=== PATIENT | male | born 1980 | race African-American/Black ===

== ENCOUNTER 2021-06-17 08:02 | Emergency (ER) | payer MEDICARE, SELFPAY ==
--- NOTE | ~2021-06-17 | CT_ITS ---
EXAMINATION: CT abdomen pelvis wo con DATE: 06/17/2021 08:32 INDICATION: Generalized abdominal pain, patient on dialysis TECHNIQUE: Computed tomography (CT) of the abdomen and pelvis was performed without intravenous contr ast. The dose-length product (DLP) was 422.35 mGy-cm. Automated exposure control and iterative recons truction technique were employed. COMPARISON: None FINDINGS: Minimal dependent atelectasis is present in the lung bases. The heart size is normal. Withi n the limitations of noncontrast examination, the liver, spleen, pancreas, gallbladder, and adrenal g lands are normal. There is mild left hydronephrosis of unclear significance. The right kidney is unre markable. There are phleboliths of the pelvis. There is a moderate amount of free intraperitoneal gas in the upper abdomen and a small volume of abdominal and pelvic ascites. A peritoneal dialysis parrish ter coils in the pelvis. No pathologically enlarged abdominal or pelvic lymph nodes are identified. T here are no dilated loops of bowel. A 3 cm fluid attenuation lesion in the subcutaneous tissues of th e left lower back has the appearance of a sebaceous cyst. IMPRESSION: 1. Small volume of ascites with free intraperitoneal gas in the upper abdomen. Findings could be rela reggie to peritoneal dialysis as no definite source of free air is identified. 2. Mild left hydronephrosis of unclear etiology. Reviewed, dictated and finalized at location B. IMPRESSION: 1. Small volume of ascites with free intraperitoneal gas in the upper abdomen. Findings could be related to peritoneal dialysis as no definite source of free air is identified. 2. Mild left hydronephrosis of unclear etiology.
[2021-06-17 08:07] VITALS: BP 246/146; PULSE 64; RESP 18; TEMP 36.4; O2SAT 100
--- NOTE | 2021-06-17 08:08 | ED.ABDPAIN ---
HPI - Abdominal Pain General Chief Complaint: Abdominal Pain Stated Complaint: ABD Pain Time Seen by Provider: 06/17/21 08:05 History of Present Illness HPI narrative: 40 yo male w/ h/o ESRD on peritoneal dialysis presents to the ED for nausea, vomiting, diarrhea, and abdominal pain. He reports that his symptoms started suddenly last night during his dialysis treatemnt. The pain is diffuse and cramp like. He has had multiple episodes of vomiting and diarrhea. N fever. No sick contacts. Related Data Home Medications Medication Instructions Recorded Confirmed amlodipine 06/17/21 carvedilol 06/17/21 clonidine 06/17/21 famotidine 06/17/21 gabapentin 06/17/21 minoxidil 06/17/21 spironolactone 06/17/21 06/17/21 Allergies Allergy/AdvReac Type Severity Reaction Status Date / Time No Known Allergies Allergy Verified 06/17/21 08:20 Review of Systems Review of Systems: All systems reviewed & are unremarkable except as noted in HPI and below Constitutional: Constitutional: Denies fever(s) ENT: Reports system reviewed and no additional complaints, except as documented Cardiovascular: Cardiovascular: Denies chest pain Respiratory: Respiratory: Denies dyspnea Gastrointestinal: Gastrointestinal: Reports as per HPI Genitourinary: Genitourinary: Reports as per HPI Neurologic: Denies dizziness and Denies weakness PMFSH Past Medical History Medical History ESRD (end stage renal disease) on dialysis HTN (hypertension) Social History Social History Gender identity (if verbalized by the patient): Male Exam Const: General: no acute distress and alert Nutritional Appearance: well nourished Orientation/consciousness: patient oriented x3 HENMT: Head: normal to inspection Resp: Effort & Inspection: normal respiratory effort Auscultation: clear to auscultation bilaterally, no rales, no rhonchi and no wheezes Cardio: Jugular venous distension: no JVD Rate: regular rate Rhythm: regular rhythm Heart sounds: no murmurs GI: Inspection: non-distended GI Palp: Yes Soft to palpation, Yes Tenderness to palpation present (GI) (LLQ), Yes Guarding due to palpation present (GI) and No Rebound tenderness present Skin: General skin exam: normal color Neuro: General: patient oriented x3 and moves all extremities Speech: normal speech Extrem: General: no edema Psych: Appearance: well kempt Affect: normal affect Course Vital Signs Vital signs: Vital Signs Temperature 36.4 C 06/17/21 08:07 Pulse Rate 64 06/17/21 08:07 Respiratory Rate 18 06/17/21 08:07 Blood Pressure 246/146 H 06/17/21 08:07 Pulse Oximetry 100 06/17/21 08:07 Temperature 36.4 C 06/17/21 08:07 Pulse Rate 93 06/17/21 12:32 Respiratory Rate 18 06/17/21 12:32 Blood Pressure 175/110 H 06/17/21 12:32 Pulse Oximetry 100 06/17/21 12:32 MDM - Abdominal Pain MDM Narrative Medical decision making narrative: Labs reassuring. No acute findings on CT. Pain improved. Differential Diagnosis Differential diagnosis: Likely constipation, diverticulitis, gastroenteritis, pancreatitis, small bowel obstruction and other (paritonitis) Medical Records Attestation: I reviewed the patient's medical records. Lab Data Attestation: I reviewed the patient's lab results. Result diagrams: 06/17/21 08:17 06/17/21 08:57 Labs: Lab Results 06/17/21 06/17/21 06/17/21 Range/Units 08:17 08:46 08:55 WBC 5.9 (4.5-10.0) K/mm3 RBC 4.43 L (4.6-6.20) M/mm3 Hgb 12.1 L (14.0-18.0) g/dL Hct 38.0 L (42.0-52.0) % MCV 85.8 (80-100) fl MCH 27.3 (26-34) pg MCHC 31.8 L (32-36) g/dl RDW 14.5 (11.5-14.5) % Plt Count 226 (150-375) k/mm3 MPV 9.9 (7.4-10.4) fl Immature Gran % (Auto) 0.3 (0-0.5) % Neut % (Auto) 79.6 H (45.5-73.1) % Lymph % (
--- NOTE | 2021-06-17 08:25 | PC.NURSE ---
[facility] called in reference to pt's peritoneal dialysis - requesting a dialysis nurse to come check access.
--- NOTE | 2021-06-17 08:45 | PC.NURSE ---
attempted provide urine sample but was unsuccessfull
[2021-06-17 08:46] LABS: Basophils Percent Auto 0.3 % (0.2-1.2); Eosinophils Absolute Auto 0.1 K/mm3 (0-0.3); Eosinophils Percent Auto 2.2 % (0-4.4); Hemoglobin 12.1 g/dL (14.0-18.0); Immature Granulocyte Absolute 0.02 K/mm3 (0.00-0.031); Immature Granulocyte Percent A 0.3 % (0-0.5); Lymphocytes Absolute Auto 0.58 K/mm3 (0.9-3.2); Lymphocytes Percent Auto 9.8 % (18.3-44.2); Mean Corpuscular HGB Conc 31.8 g/dl (32-36); Mean Corpuscular Hemoglobin 27.3 pg (26-34); Mean Corpuscular Volume 85.8 fl (80-100); Mean Platelet Volume 9.9 fl (7.4-10.4); Monocytes Absolute Auto 0.5 K/mm3 (0.1-0.6); Monocytes Percent Auto 7.8 % (2.6-8.5); Neutrophils Absolute Auto 4.7 K/mm3 (1.3-6.7); Neutrophils Percent Auto 79.6 % (45.5-73.1); Platelet Count Result 226 k/mm3 (150-375); Red Blood Count 4.43 M/mm3 (4.6-6.20); Red Cell Distribution Width 14.5 % (11.5-14.5); White Blood Count 5.9 K/mm3 (4.5-10.0)
[2021-06-17] MEDS: SODIUM CHLORIDE 0.9% IV 500 ML 999 ML IV CONT (08:51)
[2021-06-17] MEDS: ONDANSETRON INJ 4 MG/2 ML VIAL IV PUSH (08:52)
[2021-06-17] MEDS: MORPHINE SULFATE (*CRX) 4 MG/ML INJ IV PUSH (08:53)
[2021-06-17 09:07] LABS: Prothrombin Time 13.1 Seconds (11.1-14.7)
[2021-06-17 09:08] LABS: Partial Thromboplastin Time 29.8 SECONDS (22.3-36.8)
[2021-06-17 09:10] LABS: Alanine Aminotransferase 11 U/L (4-50); Alkaline Phosphatase 42 U/L (38-126); Anion Gap 9 mmol/L (8-16); Aspartate Amino Transferase 29 U/L (17-59); Bilirubin,Total 0.5 mg/dL (0.2-1.3); Blood Urea Nitrogen 53 mg/dL (9-20); Calcium 9.1 mg/dL (8.4-10.2); Carbon Dioxide 21 mmol/L (22-30); Chloride 109 mmol/L (98-107); Estimated CRCL calculation 9 ml/min; Estimated Glomerular Filt Rate 6; Glucose 98 mg/dL (65-110); Lipase 251 U/L (23-300); Potassium 4.7 mmol/L (3.4-5.0); Sodium 139 mmol/L (137-145)
--- NOTE | 2021-06-17 09:45 | PC.NURSE ---
Leah RN, market developer - at bedside to check dialysis and obtain fluids. Sent to lab via walking
[2021-06-17 10:11] VITALS: BP 211/123; PULSE 74; RESP 18; O2SAT 100
[2021-06-17 10:24] LABS: Appearance Peritoneal Fluid Clear (Clear); Color Peritoneal Fluid Yellow (Colorless); Nucleated Cells Peritoneal Flu 60 /uL (0-500); RBC Peritoneal Fluid 0 /uL (0-100000); Source Peritoneal Fluid Peritoneal Fluid
[2021-06-17 10:28] LABS: Lymphocytes Peritoneal Fluid 10 %; Macrophages Peritoneal Fluid 6 %; Mesothelial Cells Peritoneal Fluid 2 %; Monocytes Peritoneal Fluid 75 %; Neutrophils Peritoneal Fluid 7 % (0-25)
[2021-06-17] MEDS: hydrALAZINE HCL 20 MG/ML VIAL IV PUSH (10:49)
[2021-06-17] MEDS: DICYCLOMINE HCL INJ 20 MG/2 ML VIAL IM (11:55)
[2021-06-17] MEDS: LABETALOL HCL INJ 100 MG/20 ML VIAL 20 MG IV PUSH (11:56)
[2021-06-17] MEDS: MORPHINE SULFATE (*CRX) 2 MG/ML INJ IV PUSH (11:57)
[2021-06-17 12:32] VITALS: BP 175/110; PULSE 93; RESP 18; O2SAT 100
== END 2021-06-17 13:00 | disposition home or self-care (01) ==
PROVIDERS: Emergency Provider Emergency Medicine
DX: K52.9 Noninfective gastroenteritis and colitis, unspecified (principal); I12.0 Hypertensive chronic kidney disease with stage 5 chronic kidney disease or end stage renal disease; N18.6 End stage renal disease
CPT/HCPCS: 36415; 74176; 80053; 83690; 85025; 85610; 85730; 87070; 87075; 87147; 87181; 87186; 87205; 88108; 89051; 96361; 96372; 96374; 96375; 96376; 99284; J0360; J0500; J2270; J2405; J7040

== ENCOUNTER 2021-06-18 03:46 | Inpatient (IN) | payer MEDICARE, SELFPAY ==
[2021-06-18] VITALS (58 sets, daily range): BP systolic 142–242; BP diastolic 81–181; PULSE 54–119; RESP 0–41; TEMP 36.2–36.8; O2SAT 95–100; BMI 24.8
--- NOTE | 2021-06-18 | ECHO_ITS ---
Patient Info Name: Nate Munroe Age: 40 years : 1980 Gender: Male Ht: 72 in Wt: 183 lbs BSA: 2.06 m2 HR: 85 bpm BP: 156 / 94 mmHg Heart Rhythm: Sinus Rhythm Technical Quality: Good Exam Date: 06/18/2021 2:14 PM Exam Location: [facility] Pulmonary Patient Status: Inpatient Admit Date: 06/18/2021 Staff Ordering Physician: Rodrigo Olivia MD Brake Repairer Air: Chani Hernandez RDCS Attending Provider: Davian Foster MD Exam Type: CA echo doppler color flow Study Info Indications I46.9 - Cardiac arrest, cause unspecified Complete two-dimensional, color flow and Doppler transthoracic echocardiogram is performed. Summary 1. Complete two-dimensional, color flow and Doppler transthoracic echocardiogram is performed. 2. Left ventricular chamber dimension is normal. 3. Left ventricular systolic function is normal, estimated at 65-70%. 4. There is severe concentric increased left ventricular wall thickness. 5. The left ventricular diastolic function is grade I diastolic dysfunction. 6. Left atrial chamber dimension is mildly enlarged. 7. Right atrial chamber dimension is mildly enlarged. 8. There is trace tricuspid valve regurgitation. 9. Mild pulmonary hypertension, estimated pulmonary arterial systolic pressure is 38 mmHg. 10. Dilated inferior vena cava with >50% collapse upon inspiration consistent with elevated right atrial pressure, 10 mmHg. Left Ventricle Left ventricular chamber dimension is normal. Left ventricular systolic function is normal, estimated at 65-70%. There is severe concentric increased left ventricular wall thickness. The left ventricular diastolic function is grade I diastolic dysfunction. Right Ventricle Right ventricular chamber dimension is normal. Right ventricular systolic function is normal. Left Atria Left atrial chamber dimension is mildly enlarged. Right Atria Right atrial chamber dimension is mildly enlarged. Aortic Valve The aortic valve is trileaflet. There is mild aortic valve sclerosis. There is no aortic valve stenosis. There is no aortic valve regurgitation. Pulmonic Valve The pulmonic valve is not well visualized. There is trace pulmonic regurgitation. Mitral Valve The mitral valve has normal leaflets. There is trace mitral valve regurgitation. Tricuspid Valve The tricuspid valve leaflets are normal. There is trace tricuspid valve regurgitation. Mild pulmonary hypertension, estimated pulmonary arterial systolic pressure is 38 mmHg. Pericardium/Pleural The pericardium appears increased echogenicity of the pericardium. There is trivial pericardial effusion. Inferior Vena Cava Dilated inferior vena cava with >50% collapse upon inspiration consistent with elevated right atrial pressure, 10 mmHg. Aorta The aortic root size at the sinus of Valsalva is normal. There is mild aortic atherosclerosis. Left Ventricular Outflow Tract Name Value Normal LVOT 2D LVOT Diameter 2.2 cm LVOT Doppler LVOT Peak Gradient 7 mmHg LVOT Mean Gradient 3 mmHg LVOT VTI 21 cm
--- NOTE | ~2021-06-18 | XR_ITS ---
EXAMINATION: XR chest 1V portable DATE: 06/21/2021 05:44 INDICATION: Respiratory failure. Cardiac arrest. TECHNIQUE: frontal view of the chest was obtained. COMPARISON: Chest radiograph dated 06/20/2021 FINDINGS: Endotracheal tube tip 4.2 cm above the diaz. Nasogastric tube in the stomach. A couple increasing retrocardiac opacities with well-defined margins at the medial left lower lung zo ne and favor atelectasis over pneumonia. No pulmonary edema, pleural effusion or pneumothorax. The ca rdiomediastinal silhouette is normal. Visualized bones and soft tissues are unremarkable. IMPRESSION: 1. Increasing retrocardiac opacities with configuration favoring atelectasis over pneumonia. Reviewed, dictated and finalized at location A. IMPRESSION: 1. Increasing retrocardiac opacities with configuration favoring atelectasis ov er pneumonia.
--- NOTE | ~2021-06-18 | XR_ITS ---
EXAMINATION: XR chest ET placement INDICATION: Endotracheal tube insertion TECHNIQUE: Portable AP chest at 0454 hours COMPARISON: None available FINDINGS: The endotracheal tube ends 5.6 cm above the diaz. The heart size is upper limits of chris l for technique. There are mild interstitial opacities in a perihilar distribution. No pleural effusi on or pneumothorax is identified. The visualized osseous structures are unremarkable. IMPRESSION: 1. Endotracheal tube approximately 5.6 cm above the diaz. 2. Likely mild pulmonary edema. Reviewed, dictated and finalized at location D.
--- NOTE | ~2021-06-18 | XR_ITS ---
EXAMINATION: XR Abdomen PICC INDICATION: Left thigh PICC insertion TECHNIQUE: Portable AP supine view of the abdomen is obtained. COMPARISON: 07/01/2021 FINDINGS: There is a left femoral catheter coursing from the leg, to the left pelvis, crossing the mi dline and ending to the right of midline at the level of the L2 vertebral body. The bowel gas pattern is nonspecific. There is a moderate volume of colonic stool. A peritoneal dialysis catheter coils in the right pelvis. IMPRESSION: 1. Right femoral catheter likely ending in the mid inferior vena cava. Reviewed, dictated and finalized at location A.
--- NOTE | ~2021-06-18 | CT_ITS ---
EXAMINATION: CT brain wo con DATE: 07/04/2021 09:59 INDICATION: Seizure activity. Anoxic brain injury post cardiac arrest. TECHNIQUE: Computed tomography (CT) of the head was performed without intravenous contrast. The mA wa s adjusted according to patient size. Iterative reconstruction technique was employed. Exam dose: 60 5.33 mGy-cm total exam DLP. COMPARISON: 07/02/2021 MRI brain/brainstem 06/25/2021 and 06/18/2021 CT brain FINDINGS: Again noted is patchy diminished attenuation of the cerebral white matter, likely a focal a christina of hypoattenuation in the left parietal deep white matter, and chronic bilateral basal ganglia la cunar infarcts No intracranial mass lesion or hemorrhage, midline shift or mass effect effect. No subdural or epidur al hematoma. There is a small mucus retention cyst or polyp of the lateral wall of the right maxillary sinus. Prom inent fluid level in the left maxillary sinus. There is patchy opacification of left ethmoid air cell s. The mastoid air cells are normally developed and aerated. No fracture or bone destruction of the cranial vault. IMPRESSION: Chronic white matter changes including the left parietal deep white matter infarct, bila teral basal ganglia chronic lacunar infarcts No intracranial mass lesion or hemorrhage or significant new intracranial findings since 06/25/2021 Prominent fluid level of left maxillary sinus, small mucus retention cyst or polyp of right maxillary sinus Reviewed, dictated and finalized at Location A. Reviewed, dictated and finalized at location B. IMPRESSION: Chronic white matter changes including the left parietal deep whit e matter infarct, bilateral basal ganglia chronic lacunar infarcts No intracranial mass lesion or hemorrhage or significant new intracranial findi ngs since 06/25/2021 Prominent fluid level of left maxillary sinus, small mucus retention cyst or po lyp of right maxillary sinus
--- NOTE | ~2021-06-18 | US_ITS ---
EXAMINATION: US venous doppler [facility] DATE: 07/04/2021 09:33 INDICATION: Tachypnea TECHNIQUE: Grayscale ultrasound images without and with compression and Doppler ultrasound images of the bilateral lower extremity veins were obtained. COMPARISON: None. FINDINGS: The visualized portions of right common femoral vein, profunda (deep) femoral vein, femoral vein, pop liteal vein, posterior tibial veins, peroneal veins, gastrocnemius vein and greater saphenous vein ou tflow are patent. The visualized portions of left common femoral vein, profunda femoral vein, femoral vein, popliteal v ein, posterior tibial veins, peroneal veins, gastrocnemius vein and greater saphenous vein outflow ar e patent. IMPRESSION: 1. No deep venous thrombosis in either lower limb. Reviewed, dictated and finalized at location A.
--- NOTE | ~2021-06-18 | XR_ITS ---
EXAMINATION: XR chest 1V portable DATE: 07/02/2021 05:43 INDICATION: Respiratory failure TECHNIQUE: frontal view of the chest was obtained. COMPARISON: Chest radiograph and CT dated 07/01/2021 FINDINGS: Tunneled large-bore dual-lumen right internal jugular central venous catheter with distal tip in the high right atrium. Nasogastric tube extends below the left hemidiaphragm with distal tip collimated off the study. Improvement in the now very thin curvilinear discoid atelectasis in the left lower lobe as well as of a thickened bandlike region of discoid atelectasis in the right lower lobe. No new airspace opacitie s, pulmonary edema, pleural effusion or pneumothorax. The cardiomediastinal silhouette is normal. Vis ualized bones and soft tissues are unremarkable. IMPRESSION: 1. Improvement in discoid atelectasis in the bilateral lower lobes. Reviewed, dictated and finalized at location A.
--- NOTE | ~2021-06-18 | US_ITS ---
EXAMINATION: US right upper quadrant DATE: 06/28/2021 16:10 INDICATION: Pancreatitis TECHNIQUE: Multiple grayscale and Doppler ultrasound images of the abdomen were obtained. COMPARISON: None FINDINGS: There is mild dilation of the main pancreatic duct measuring 4 mm at the head of the pancreas taperin g to 3 mm at the neck and proximal body and tapering to 2 mm at the distal body of the pancreas. The pancreas appears otherwise normal with the tail the pancreas suboptimally visualized due to refractio n artifact from the stomach. No peripancreatic fluid collections identified. Liver has normal echogen icity and contour, with a smooth surface. No liver lesion identified. No intrahepatic biliary duct di lation suspected. Portal venous flow was seen in the hepatopetal, normal direction and has normal Dop pler waveform. The visualized portions of the proximal inferior vena cava and aorta appear normal. Sm all amount of perihepatic ascites. There is diffuse wall thickening of the decompressed gallbladder w hich measures up to 9 mm. No evident shadowing cholelithiasis. Common bile duct measures 4 mm in maxi mal diameter which is normal. Unable to assess for sonographic Rand sign due to intubation and blu ent's decreased mental status. IMPRESSION: 1. Normal-appearing pancreas aside from mildly dilated main pancreatic duct with no peripancreatic fl uid collections. 2. Small amount of perihepatic ascites. 3. Prominent nonspecific wall thickening of the gallbladder which is both decompressed and without ch olelithiasis to suggest acute cholecystitis. Differential would also include heart, liver or renal fa ilure, sepsis or other generalized edema forming states. Reviewed, dictated and finalized at location A. IMPRESSION: 1. Normal-appearing pancreas aside from mildly dilated main pancreatic duct wit h no peripancreatic fluid collections. 2. Small amount of perihepatic ascites. 3. Prominent nonspecific wall thickening of the gallbladder which is both decom pressed and without cholelithiasis to suggest acute cholecystitis. Differential would also include heart, liver or renal failure, sepsis or other generalized edema forming states.
--- NOTE | ~2021-06-18 | XR_ITS ---
EXAMINATION: XR fl guide central line place DATE: 06/26/2021 15:53 INDICATION: Tunneled dialysis catheter placement TECHNIQUE: Single fluoroscopic image of the inferomedial right chest was obtained during procedure pe rformed by Dr. Rodriguez. Radiologist was not present for the imaging or procedure. The amount of fluoros copy time used during this procedure was 0.2 minutes. COMPARISON: None FINDINGS: Distal tip of a large-bore dual-lumen central venous catheter extends caudally from the superior vena cava with distal tip in the the mid right atrium. Nasogastric tube extends through the distal esopha johan and beyond the margin of collimation in the region of the gastroesophageal junction. IMPRESSION: 1. Large-bore dual-lumen central venous catheter tip in the mid right atrium. Reviewed, dictated and finalized at location A.
--- NOTE | ~2021-06-18 | CT_ITS ---
EXAMINATION: CT chest abdomen pelvis wo con DATE: 07/01/2021 12:43 INDICATION: Fever, pancreatitis TECHNIQUE: Transaxial computed tomographic images of the chest, abdomen, and pelvis were obtained wit hout intravenous contrast. The dose-length product (DLP) was 679.90 mGy-cm. Automated exposure contro l and iterative reconstruction technique were employed. COMPARISON: 06/17/2021 FINDINGS: CHEST CT: There are airspace opacities of the lower lobes. No pleural effusion or pneumothorax is identified. T he heart size is normal. There is a small pericardial effusion. A right internal jugular dialysis cat heter ends with its tip in the right atrium. There is mild mediastinal lymphadenopathy, likely reacti ve. ABDOMEN/PELVIS CT: Within the limitations of noncontrast examination, the liver, spleen, gallbladder, adrenal glands, an d kidneys appear normal. There appears to be diffuse enlargement of the pancreas, new since the heaven rison examination. No persistent free intraperitoneal gas is identified. There is a peritoneal dialys is catheter coiling in the pelvis with a small amount of pelvic ascites. The bladder is decompressed by Nagy catheter. There is hyperdense material in the left anterolateral chest wall and intercostal muscles of unclear origin. No pathologically enlarged abdominal or pelvic lymph nodes are identified. There are no dilated loops of bowel. A large volume of colonic stool is present. IMPRESSION: 1. Airspace opacities of the lower lobes, consistent with atelectasis versus pneumonia. 2. Diffuse enlargement of the pancreas. Although examination is limited by the absence of intravenous contrast, findings are consistent with pancreatitis. 3. Hyperdense material in the left lower chest wall of unclear origin. Correlate for any contrast req uiring procedures involving the chest wall. Reviewed, dictated and finalized at location A. IMPRESSION: 1. Airspace opacities of the lower lobes, consistent with atelectasis versus pn eumonia. 2. Diffuse enlargement of the pancreas. Although examination is limited by the absence of intravenous contrast, findings are consistent with pancreatitis. 3. Hyperdense material in the left lower chest wall of unclear origin. Correlat e for any contrast requiring procedures involving the chest wall.
--- NOTE | ~2021-06-18 | XR_ITS ---
EXAMINATION: XR chest 1V portable DATE: 07/01/2021 05:59 INDICATION: Respiratory failure TECHNIQUE: frontal view of the chest was obtained. COMPARISON: Chest radiograph dated 06/30/2021 FINDINGS: Endotracheal tube tip 6.9 cm above the diaz. Large-bore dual-lumen right internal jugular central v enous catheter with distal tip in the high right atrium. Nasogastric tube extends below the left hem idiaphragm with distal tip collimated off the study. Oblique linear discoid atelectasis in the left mid and lower and right lower lung zones. No pulmonary edema, pleural effusion or pneumothorax. The cardiomediastinal silhouette is normal. IMPRESSION: 1. Mild linear discoid atelectasis in the left mid and bilateral lower lung zones. Reviewed, dictated and finalized at location A. IMPRESSION: 1. Mild linear discoid atelectasis in the left mid and bilateral lower lung zon es.
--- NOTE | ~2021-06-18 | XR_ITS ---
XR abdomen NG/feed tube rechec INDICATION: Evaluate NG tube position. TECHNIQUE: Limited KUB perform for evaluating NG tube . COMPARISON: 06/22/2021 FINDINGS: NG tube tip in the stomach. Visualized bowel gas pattern is unremarkable. IMPRESSION: 1: NG tube tip in the stomach. Reviewed, dictated and finalized at location A.
--- NOTE | ~2021-06-18 | XR_ITS ---
EXAMINATION: XR chest 1V portable DATE: 06/30/2021 05:51 INDICATION: Respiratory failure TECHNIQUE: frontal view of the chest was obtained. COMPARISON: Chest radiograph dated 06/29/2021 FINDINGS: Endotracheal tube tip 6.0 cm above the diaz. Large-bore dual-lumen right internal jugular central v enous catheter with distal tip in the high right atrium. Nasogastric tube extends below the left hem idiaphragm with distal tip collimated off the study. Bandlike opacities emanating from the ivett in the bilateral mid and lower lung zones and favor atelec tasis over pneumonia. No pulmonary edema, pneumothorax or pleural effusion. The cardiomediastinal tacho houette is normal. IMPRESSION: 1. Persistent perihilar opacities now with more bandlike appearance and favor discoid atelectasis ove r pneumonia. Reviewed, dictated and finalized at location A. IMPRESSION: 1. Persistent perihilar opacities now with more bandlike appearance and favor d iscoid atelectasis over pneumonia.
--- NOTE | ~2021-06-18 | XR_ITS ---
EXAMINATION: XR abdomen NG/feed tube insert EXAM DATE: 06/22/2021 10:16 INDICATION: Feeding tube placement. TECHNIQUE: Frontal projection(s) of the abdomen for interpretation. Comparison is made to prior exami nation from 06/18/2021. FINDINGS: Feeding tube tip and side-port project over gastric bubble, adequate. Nonspecific but nonob structive upper abdominal bowel gas pattern. Some retrocardiac air bronchograms from segmental atelec tasis or pneumonia. There is no organomegaly. IMPRESSION: 1. ET tube in position. 2. Retrocardiac air bronchograms indicating segmental lower lobe consolidation, could be atelectasis or pneumonia. Reviewed, dictated and finalized at location G. IMPRESSION: 1. ET tube in position. 2. Retrocardiac air bronchograms indicating segmental lower lobe consolidation , could be atelectasis or pneumonia.
--- NOTE | ~2021-06-18 | XR_ITS ---
EXAMINATION: XR chest 1V portable DATE: 06/20/2021 05:34 INDICATION: Acute respiratory failure. Cardiac arrest. TECHNIQUE: frontal view of the chest was obtained. COMPARISON: Chest radiograph dated 06/19/2021 FINDINGS: Endotracheal tube tip 5.2 cm above the diaz. Nasogastric tube extends below the left hemidiaphragm with distal tip collimated off the study. Again seen is mild linear discoid atelectasis/scarring at the lateral left lower lung zone. No other airspace opacities, pulmonary edema, pleural effusion or pneumothorax. The cardiomediastinal silhouet te is normal. Visualized bones and soft tissues are unremarkable. IMPRESSION: 1. Mild discoid atelectasis at the left lower lung zone. Reviewed, dictated and finalized at location A.
--- NOTE | ~2021-06-18 | XR_ITS ---
EXAMINATION: XR chest port-a-cath/central INDICATION: Tunneled dialysis catheter insertion TECHNIQUE: Portable AP chest at 1644 hours COMPARISON: 06/25/2021 FINDINGS: A right internal jugular tunneled dialysis catheter ends with its tip in the proximal right atrium. The nasogastric tube is in the stomach. The endotracheal tube is 6.3 cm above the diaz. Th e lungs are free of acute opacities. There is no pleural effusion or pneumothorax. The cardiomediasti nal silhouette is normal. IMPRESSION: 1. Right internal jugular tunneled dialysis catheter insertion ending with its tip in the proximal ri ght atrium. Reviewed, dictated and finalized at location A. IMPRESSION: 1. Right internal jugular tunneled dialysis catheter insertion ending with its tip in the proximal right atrium.
--- NOTE | ~2021-06-18 | CT_ITS ---
EXAMINATION: CT brain wo con DATE: 06/18/2021 06:39 INDICATION: Cardiac arrest TECHNIQUE: Computed tomography (CT) of the head was performed without intravenous contrast. Sagittal and coronal reconstructions were performed. Automated exposure control and iterative reconstruction t echnique were employed. The dose-length product was 605.33 mGy-cm. COMPARISON: None FINDINGS: No acute intracranial hemorrhage or abnormal extra axial fluid collection. There is no loss of rice-w jose matter differentiation to suggest an anoxic brain injury or other large territorial acute infarc tion. There are multiple small regions of decreased attenuation including at the at the bilateral cau date nuclei and subinsular white matter, in the shereen and in the bilateral anterior frontal lobes beny g the superior frontal sinus and in the bilateral parieto-occipital regions. Ventricles are normal an d symmetric. No mass/mass effect. The orbits and mastoid air cells are normal. Mild mucosal thickenin g scattered throughout the paranasal sinuses. IMPRESSION: 1. Numerous small regions of significantly decreased attenuation in the bilateral basal ganglia, shereen and bilateral occipital white matter. The differential diagnosis includes posterior reversible encep halopathy syndrome (PRES), subacute to chronic lacunar infarcts/premature chronic small vessel ischem ic disease (especially if the patient has cardiovascular risk factors), demyelinating disease such as multiple sclerosis or acute disseminated encephalomyelitis (ADEM), drug abuse, vasculitis, or reacti ve astrocytosis (gliosis) secondary to other nonspecific etiology. Reviewed, dictated and finalized at location A. IMPRESSION: 1. Numerous small regions of significantly decreased attenuation in the bilater al basal ganglia, shereen and bilateral occipital white matter. The differential d iagnosis includes posterior reversible encephalopathy syndrome (PRES), subacute to chronic lacunar infarcts/premature chronic small vessel ischemic disease (e specially if the patient has cardiovascular risk factors), demyelinating diseas e such as multiple sclerosis or acute disseminated encephalomyelitis (ADEM), dr ug abuse, vasculitis, or reactive astrocytosis (gliosis) secondary to other non specific etiology.
--- NOTE | ~2021-06-18 | MR_ITS ---
EXAMINATION: MR brain/brain stem wo con DATE: 07/02/2021 12:19 INDICATION: Encephalopathy. TECHNIQUE: Magnetic resonance imaging (MRI) of the brain and brainstem was performed without intraven ous contrast. Sequences included sagittal and axial T1-weighted FSE, axial diffusion-weighted FS EPI, axial T2*-weighted GRE, axial T2-weighted FLAIR Propeller, and axial T2-weighted Propeller. Apparent diffusion coefficient (ADC) maps were created. COMPARISON: Head CT 06/25/2021 FINDINGS: There are scattered areas of nonspecific increased T2-weighted signal intensity in the cere bral white matter. There are acute infarcts involving the left frontal and parietal deep white matter . There is an old lacunar infarct in the shereen. There are old lacunar infarcts in the bilateral basal ganglia. There is no intracranial hemorrhage or abnormal mass lesion. The ventricles are normal in si ze. There are trace bilateral mastoid effusions. There is mucosal thickening in the paranasal sinuses including near complete opacification of left maxillary sinus. The orbits are normal. IMPRESSION: 1. Acute infarcts involving the left frontal and parietal deep white matter. 2. Old lacunar infarcts involving the shereen and bilateral basal ganglia. 3. Mild nonspecific cerebral white matter disease, which likely represents chronic small vessel ische jose disease. Reviewed, dictated and finalized at location A. IMPRESSION: 1. Acute infarcts involving the left frontal and parietal deep white matter. 2. Old lacunar infarcts involving the shereen and bilateral basal ganglia. 3. Mild nonspecific cerebral white matter disease, which likely represents target setter veena small vessel ischemic disease.
--- NOTE | ~2021-06-18 | XR_ITS ---
EXAMINATION: XR abdomen NG/feed tube insert INDICATION: OG replacement TECHNIQUE: Portable AP KUB-NG at 1704 hours COMPARISON: 06/25/2021 FINDINGS: The nasogastric tube is in the stomach. The bowel gas pattern is nonspecific. A moderate vo lume of colonic stool is present. The visualized lung bases are clear. A dialysis catheter ends with its tip in the proximal right atrium. IMPRESSION: 1. Nasogastric tube in the stomach. Reviewed, dictated and finalized at location A.
--- NOTE | ~2021-06-18 | XR_ITS ---
EXAMINATION: XR chest 1V portable DATE: 06/19/2021 05:50 INDICATION: Acute respiratory failure. Cardiac arrest. TECHNIQUE: frontal view of the chest was obtained. COMPARISON: Chest radiograph dated 09/18/2021 FINDINGS: Endotracheal tube tip 6.1 cm above the diaz. Nasogastric tube extends below the left hemidiaphragm with distal tip collimated off the study. Mild linear discoid atelectasis at the lateral left lower lung zone. No other airspace opacities, pul monary edema, pleural effusion or pneumothorax. The cardiomediastinal silhouette is normal. Visualize d bones and soft tissues are unremarkable. IMPRESSION: 1. Mild discoid atelectasis at the left lower lung zone. Reviewed, dictated and finalized at location A.
--- NOTE | ~2021-06-18 | XR_ITS ---
EXAMINATION: XR chest 1V portable DATE: 07/04/2021 08:06 INDICATION: Respiratory distress TECHNIQUE: frontal view of the chest was obtained. COMPARISON: Chest radiograph dated 07/02/2021 FINDINGS: Large-bore dual-lumen right internal jugular central venous catheter with distal tip in the right atr ium. Nasogastric tube with proximal side-port in the body of the stomach and with distal tip collima reggie off the study. Persistent bandlike opacity at the medial right lower lung zone consistent with atelectasis/scarring. No new airspace opacities, pulmonary edema, pleural effusion or pneumothorax. The cardiomediastinal silhouette is normal. Old posterior right 11th rib fracture. IMPRESSION: 1. Persistent bandlike discoid atelectasis/scarring at the medial right lower lung zone. Reviewed, dictated and finalized at location A. IMPRESSION: 1. Persistent bandlike discoid atelectasis/scarring at the medial right lower l cole zone.
--- NOTE | ~2021-06-18 | US_ITS ---
EXAMINATION: US venous doppler [facility] DATE: 06/28/2021 16:09 INDICATION: Fever. Respiratory failure. TECHNIQUE: Grayscale ultrasound images without and with compression and Doppler ultrasound images of the bilateral lower extremity veins were obtained. COMPARISON: None. FINDINGS: The visualized portions of right common femoral vein, profunda (deep) femoral vein, femoral vein, pop liteal vein, posterior tibial veins, peroneal veins, gastrocnemius vein and greater saphenous vein ou tflow are patent. The visualized portions of left common femoral vein, profunda femoral vein, femoral vein, popliteal v ein, posterior tibial veins, peroneal veins, gastrocnemius vein and greater saphenous vein outflow ar e patent. IMPRESSION: 1. No deep venous thrombosis in either lower limb. Reviewed, dictated and finalized at location A.
--- NOTE | ~2021-06-18 | XR_ITS ---
EXAMINATION: XR abdomen NG/feed tube insert DATE: 06/18/2021 08:30 INDICATION: Nasogastric tube placement TECHNIQUE: A supine view of the abdomen and lower chest was obtained for evaluation of feeding tube placement. COMPARISON: CT dated 06/17/2021 FINDINGS: Nasogastric tube tip in in the body of the stomach with proximal side-port near the level of the angelita roesophageal junction. Normal bowel gas pattern in the visualized upper abdomen. Visualized mid to lo wer lungs are clear with no focal airspace opacities, pulmonary edema or pleural effusion. Heart size is normal. IMPRESSION: 1. Nasogastric tube in the stomach. Could consider advancement by a couple centimeters to place the p roximal side-port below the level of the gastroesophageal junction. Reviewed, dictated and finalized at location A. IMPRESSION: 1. Nasogastric tube in the stomach. Could consider advancement by a couple cent imeters to place the proximal side-port below the level of the gastroesophageal junction.
--- NOTE | ~2021-06-18 | CT_ITS ---
EXAMINATION: CT brain wo con EXAM DATE: 06/25/2021 11:48 INDICATION: Anoxic brain injury post cardiac arrest. Seizure activity, acute disseminated encephalomy elitis. TECHNIQUE: Spiral CT of the head was performed without contrast. Axial, coronal and sagittal images were reviewed. The dose-length product (DLP) for this examination was 605.33 mGy-cm. The exposure w as tailored according to patient size, and iterative reconstruction (ASIR) was used as additional dos e reduction technique. Comparison is made to prior examination from 06/18/2021. FINDINGS: There is interval development of approximately 1 cm hypodensity in the left centrum semiova le, finding indicated on axial image 34, confirming an acute or acute on chronic etiology. Previously described bilateral low density regions in the basal ganglia, periventricular white shereen are either stable or with slight interval decrease in density which could indicate infarctions. Differential ritika gnosis includes infarctions, acute disseminated encephalomyelitis, vasculopathy. No acute intracranial hemorrhage, extra-axial lesions or obstructive hydrocephalus. No brain mass john paul ntified. There is mild left ethmoid mucoperiosteal thickening. Orbits are unremarkable. IMPRESSION: 1. New left centrum semiovale hypodensity, confirming acute or acute on chronic process, such as inf arctions, ADEM, vasculopathy. 2. Other bilateral white matter, deep rice matter, shereen hypodensity stable or slight decrease in den sity. 3. No acute hemorrhage. With subsequent follow-up exam, consider pre and postcontrast study assuming GFR adequate. Reviewed, dictated and finalized at location B. IMPRESSION: 1. New left centrum semiovale hypodensity, confirming acute or acute on chroni c process, such as infarctions, ADEM, vasculopathy. 2. Other bilateral white matter, deep rice matter, shereen hypodensity stable or slight decrease in density. 3. No acute hemorrhage. With subsequent follow-up exam, consider pre and postcontrast study assuming GF R adequate.
--- NOTE | ~2021-06-18 | XR_ITS ---
EXAMINATION: XR abdomen NG/feed tube insert INDICATION: Nasogastric tube insertion TECHNIQUE: Portable AP KUB-NG at 1352 hours COMPARISON: 06/27/2021 FINDINGS: The nasogastric tube is in the stomach. There are partially imaged airspace opacities of th e right lung base. There is also a partially imaged large bore catheter entering with its tip in the proximal right atrium. IMPRESSION: 1. Nasogastric tube in the stomach. Reviewed, dictated and finalized at location A.
--- NOTE | ~2021-06-18 | US_ITS ---
EXAMINATION: US venous doppler UE DATE: 06/28/2021 16:10 INDICATION: Fever. Respiratory failure. TECHNIQUE: Grayscale images without and with compression and Doppler images of the bilateral upper ex tremity veins were obtained. COMPARISON: None. FINDINGS: There is noncompressible occlusive deep venous thrombosis in the right cephalic vein throughout the r ight upper arm. The right internal jugular vein, subclavian vein, axillary vein, brachial vein, basil ic vein, radial vein, and ulnar vein are patent. The left internal jugular vein, subclavian vein, axillary vein, brachial vein, basilic vein, cephalic vein, radial vein, and ulnar vein are patent. IMPRESSION: 1. Occlusive venous thrombosis at the right cephalic vein. No other evident venous thrombosis in eith er upper limb. Reviewed, dictated and finalized at location A. IMPRESSION: 1. Occlusive venous thrombosis at the right cephalic vein. No other evident vic ous thrombosis in either upper limb.
--- NOTE | ~2021-06-18 | XR_ITS ---
XR chest 1V portable 06/28/2021 08:27 Indication: Respiratory failure Procedure: AP portable chest Comparison: Comparison to multiple prior studies sequentially, with oldest reviewed study dated 06/23. Findings: Cardiomegaly. Endotracheal tube tip 6.1 cm above the diaz. NG tube in the stomach. Dual-l umen central venous catheter tip in the right atrium. Right perihilar infiltrates which may represent mild edema or pneumonia. No effusion. No pneumothorax. Impression: 1: Right perihilar infiltrates, asymmetric edema versus pneumonia. 2: Cardiomegaly. Reviewed, dictated and finalized at location A. Impression: 1: Right perihilar infiltrates, asymmetric edema versus pneumonia. 2: Cardiomegaly.
--- NOTE | ~2021-06-18 | XR_ITS ---
XR chest 1V portable DATE: 06/22/2021 05:32 INDICATION: Acute respiratory failure, cardiac arrest TECHNIQUE: Portable AP chest on 06/22/2021 at 0506 hours COMPARISON: 06/21/2021 portable AP chest at 0452 hours FINDINGS: ET tube tip 5.2 cm above diaz. Eucha range is 2-5 cm. NG tube in upper stomach, proximal side-port situated near diaphragmatic hiatus. NG tube advancement is recommended. No central lines. There is increased intracardiac density with air bronchograms consistent with left lower lobe atelect asis and/or consolidation. The lungs otherwise appear clear. No pleural effusion or pulmonary vascula r congestion or pneumothorax. IMPRESSION: ET tube 5.2 cm above diaz NG tube in upper stomach; advancement is recommended Left lower lobe atelectasis and/or consolidation Reviewed, dictated and finalized at location A.
--- NOTE | ~2021-06-18 | XR_ITS ---
XR chest 1V portable DATE: 06/23/2021 05:30 INDICATION: Acute respiratory failure, cardiac arrest TECHNIQUE: Portable AP chest on 06/23/2021 at 0507 hours COMPARISON: 06/22/2021 portable AP chest at 0506 hours FINDINGS: ET tube is 5.4 cm above diaz; ideal range is 2-5 cm. NG tube in stomach. Increased retrocardiac density on the left with air bronchograms consistent with left lower lobe atel ectasis and/or consolidation. There is patchy infiltrate or atelectasis in the right lower lung as we ll. No pleural effusion or pulmonary vascular congestion or pneumothorax. IMPRESSION: Bilateral lower lobe infiltrate and/atelectasis, not significantly changed since 10/23/20 21 Reviewed, dictated and finalized at location A. IMPRESSION: Bilateral lower lobe infiltrate and/atelectasis, not significantly changed since 10/23/2021
--- NOTE | ~2021-06-18 | XR_ITS ---
XR chest ET placement 06/25/2021 08:17 Indication: Respiratory distress Procedure: AP portable chest Comparison: Comparison to multiple prior studies sequentially, with oldest reviewed study dated 06/21. Findings: Endotracheal tube tip 5 cm above the diaz. NG tube in the stomach. Cardiomegaly. No focal air space disease, pulmonary edema, pleural effusion or suspected pneumothorax. Impression: 1: No acute cardiopulmonary disease. Reviewed, dictated and finalized at location A. Impression: 1: No acute cardiopulmonary disease.
--- NOTE | ~2021-06-18 | XR_ITS ---
XR chest 1V portable 06/25/2021 05:53 Indication: Acute respiratory failure Procedure: AP portable chest Comparison: Comparison to multiple prior studies sequentially, with oldest reviewed study dated 06/20. Findings: Endotracheal tube tip 5.7 cm above the diaz. NG tube in the stomach, distal tip not visua lized. Cardiomegaly. No focal air space disease, pulmonary edema, pleural effusion or suspected pneum othorax. Impression: 1: No acute cardiopulmonary disease. Reviewed, dictated and finalized at location A. Impression: 1: No acute cardiopulmonary disease.
--- NOTE | ~2021-06-18 | XR_ITS ---
EXAMINATION: XR chest 1V portable DATE: 06/29/2021 06:21 INDICATION: Respiratory failure TECHNIQUE: frontal and lateral views of the chest were obtained. COMPARISON: Chest radiograph dated 06/28/2021 FINDINGS: Endotracheal tube tip 6.4 cm above the diaz. Nasogastric tube extends below the left hemidiaphragm with distal tip collimated off the study. Large-bore dual-lumen right internal jugular central venou s catheter with distal tip at the high right atrium. Persistent right perihilar opacities. No pleural effusion or pneumothorax. The cardiomediastinal silh ouette is normal. IMPRESSION: 1. Persistent right perihilar opacities which could represent atelectasis, pneumonia or mild pulmonar y edema. Reviewed, dictated and finalized at location A. IMPRESSION: 1. Persistent right perihilar opacities which could represent atelectasis, pneu monia or mild pulmonary edema.
--- NOTE | 2021-06-18 03:55 | ECG_ITS ---
Measurements Intervals [place] Rate: 53 P: TN: 0 QRS: 89 QRSD: 118 T: -90 QT: 445 QTc: 418 Interpretive Statements JUNCTIONAL RHYTHM INTRAVENTRICULAR CONDUCTION DELAY ANTEROSEPTAL INFARCT, AGE INDETERMINATE PEAKED T WAVES- CONSIDER HYPERKALEMIA OR ISCHEMIA ST-T WAVE ABNORMALITY IN INFERIOR LEADS- CONSIDER ISCHEMIA BASELINE WANDER- I, V6 ABNORMAL ECG Electronically Signed On 06-18-2021 11:29:47 CDT by Soy Fontaine D.O.
[2021-06-18] MEDS: SODIUM CHLORIDE 0.9% IV 1,000 ML 999 ML IV CONT ×2 (04:00→05:45)
[2021-06-18] MEDS: SODIUM BICARBONATE 8.4% 50 MEQ/50 ML VIAL IV PUSH (04:00)
[2021-06-18] MEDS: CENTRAL LINE FLUSH 10 ML IV PUSH ×3 (04:00→21:13)
[2021-06-18 04:38] LABS: Base Excess ABG -14.8 mEq/l (+/-2.0); Fractional Inspired Oxygen 60 %; HCO3 ABG 12.7 mEq/l (22.0-26.0); Oxygen Content ABG 17.7 %vol (16.0-22.0); Oxygen Saturation ABG 99.5 % (95.0-100.0); Oxyhemoglobin 97.5 % THb (90.0-100.0); PCO2 ABG 35.4 mmHg (35.0-45.0); PO2 ABG 269.9 mmHg (80.0-100.0); Total Hemoglobin 12.4 g/dL (12.0-18.0)
[2021-06-18 04:39] LABS: Arterial Blood Gas Ventilator rate 15 /MIN; Device VENTILATOR; Modified Allen's Test Pass; Site Drawn LEFT RADIAL; pH ABG 7.172 (7.350-7.450)
[2021-06-18 04:40] LABS: Arterial Blood Gas PEEP 5 cmH2O; Arterial Blood Gas Tidal Volume 400 ml; Arterial Blood Gas Vent Mode CMV
[2021-06-18 04:45] LABS: Basophils Percent Auto 0.6 % (0.2-1.2); Eosinophils Absolute Auto 0.2 K/mm3 (0-0.3); Eosinophils Percent Auto 2.7 % (0-4.4); Hematocrit 42.9 % (42.0-52.0); Hemoglobin 13.3 g/dL (14.0-18.0); Immature Granulocyte Absolute 0.38 K/mm3 (0.00-0.031); Immature Granulocyte Percent A 6.1 % (0-0.5); Lymphocytes Absolute Auto 3.75 K/mm3 (0.9-3.2); Lymphocytes Percent Auto 60.6 % (18.3-44.2); Mean Corpuscular Hemoglobin 27.5 pg (26-34); Mean Corpuscular Volume 88.6 fl (80-100); Monocytes Absolute Auto 0.5 K/mm3 (0.1-0.6); Monocytes Percent Auto 7.3 % (2.6-8.5); Neutrophils Absolute Auto 1.4 K/mm3 (1.3-6.7); Neutrophils Percent Auto 22.7 % (45.5-73.1); Platelet Count Result 295 k/mm3 (150-375); Red Blood Count 4.84 M/mm3 (4.6-6.20); Red Cell Distribution Width 14.8 % (11.5-14.5); White Blood Count 6.2 K/mm3 (4.5-10.0)
[2021-06-18] MEDS: PROPOFOL IV EMULSION 100 ML 7.7 MG IV CONT (04:45)
[2021-06-18 04:55] LABS: INR 1.2; Partial Thromboplastin Time 33.4 SECONDS (22.3-36.8); Prothrombin Time 14.8 Seconds (11.1-14.7)
--- NOTE | 2021-06-18 05:13 | ED.GENADULT ---
HPI - General Adult General Chief complaint: Cardiac Arrest/CPR Stated complaint: Unspecified Time Seen by Provider: 06/18/21 03:55 Limitations: altered mental status and clinical condition History of Present Illness HPI narrative: Patient is a 40-year-old gentleman who presents the emergency department with chief complaint of cardiac arrest. Patient was seen in the emergency department during the day yesterday after he was having abdominal pain patient was treated with morphine and Bentyl had a CT scan of the pelvis which showed no acute abnormalities. The patient is a peritoneal dialysis patient. The patient per family was very sleepy throughout the day and then got up this evening and suddenly collapsed. EMS was called upon arrival initially was asystole and then the patient had a run of ventricular tachycardia was cardioverted in the field and then had return of spontaneous circulation. The patient was intubated prehospital. Related Data Home Medications Medication Instructions Recorded Confirmed amlodipine 06/17/21 carvedilol 06/17/21 clonidine 06/17/21 famotidine 06/17/21 gabapentin 06/17/21 minoxidil 06/17/21 spironolactone 06/17/21 06/17/21 Allergies Allergy/AdvReac Type Severity Reaction Status Date / Time No Known Allergies Allergy Verified 06/17/21 08:20 Review of Systems Review of Systems: Narrative: A 10 system review of systems was completed on the patient and is negative except for what is stated in the HPI. Nursing and ancillary documentation was reviewed. ROS unobtainable: Yes unobtainable due to endotracheal tube PMFSH Past Medical History Medical History ESRD (end stage renal disease) on dialysis HTN (hypertension) Social History Social History Gender identity (if verbalized by the patient): Male Exam Narrative: Exam Narrative: GENERAL:ill-appearing, well-nourished, and in no acute distress. HEAD: Normocephalic, atraumatic. EYES: PERRLA and EOMI. ENT: Nares clear, no rhinorrhea or epistaxis. Mucous membranes moist. NECK: Supple. CHEST: Clear to auscultation. No respiratory distress. HEART: Regular rate and rhythm. No murmur heard. Normal peripheral pulses. ABDOMEN: Soft, nontender, nondistended, normal active bowel sounds. EXTREMITIES: Normal range of motion. No edema. SKIN: Warm, dry, no rash. NEURO: Unresponsive PSYCH: Normal mood and affect. Course Vital Signs Vital signs: Vital Signs Temperature 36.7 C 06/18/21 03:45 Pulse Rate 54 L 06/18/21 03:45 Respiratory Rate 26 H 06/18/21 03:45 Pulse Oximetry 100 06/18/21 03:45 Temperature 36.7 C 06/18/21 03:45 Pulse Rate 81 06/18/21 05:21 Respiratory Rate 28 H 06/18/21 05:21 Blood Pressure 152/103 H 06/18/21 05:21 Pulse Oximetry 100 06/18/21 05:10 Procedures Central Line Placement Right Femoral: Central Line Date: 06/18/21 Central Line Time: 05:13 Discussed w/ the patient/family/POA,the placement of a central venous catheter, including its clinical necessity/indication & associated potential risks, benifits and alternatives.: Yes The patient/family/POA understand(s) and acknowledge(s) the need to proceed with central venous catheter insertion as an important element of the patient's clinical management.: Yes Performed Emergently - Given emergent patient condition, temporal constraints may have precluded informed consent.: Yes Time Out Performed: Yes Patient Placed on Monitor/Pulse Ox: Yes Max. Sterile Barrier Technique: Caps Central Line Prep: 2% chlorhexidine scrub and sterile drapes applied Technique: sterile prep/drape Central Line Lumen Inserted: triple Post Procedure: sutured in place, good blood return, all ports aspirated, flushed, capped and sterile dressing applied Patient Sanjiv
[2021-06-18 05:20] LABS: Alanine Aminotransferase 213 U/L (4-50); Albumin Level 3.6 g/dL (3.5-5.1); Alkaline Phosphatase 34 U/L (38-126); Anion Gap 19 mmol/L (8-16); Aspartate Amino Transferase 244 U/L (17-59); Bilirubin,Total 0.5 mg/dL (0.2-1.3); Blood Urea Nitrogen 50 mg/dL (9-20); Calcium 8.7 mg/dL (8.4-10.2); Carbon Dioxide 11 mmol/L (22-30); Chloride 111 mmol/L (98-107); Estimated Glomerular Filt Rate 5; Glucose 215 mg/dL (65-110); Magnesium 2.6 mg/dL (1.6-2.3); Potassium 4.8 mmol/L (3.4-5.0); Sodium 141 mmol/L (137-145)
[2021-06-18 05:28] LABS: Troponin I 0.082 ng/mL (0.000-0.034)
[2021-06-18] MEDS: SODIUM BICARBONATE 8.4% 100 MEQ in WATER, STERILE FOR INJECTION 1,000 ML 150 MEQ IV CONT (05:41)
--- NOTE | 2021-06-18 07:17 | PM.EVENT ---
Event Note Event Note Event Note: late entry. Date of service 720 21 at 7:15 a.m. Patient is on peritoneal dialysis and tolerating it well. Seen at 7:15 a.m.
--- NOTE | 2021-06-18 07:27 | PM.CNNEP ---
Assessment and Plan Assessment and plan (1) ESRD (end stage renal disease) on dialysis: Code(s): N18.6 - End stage renal disease; Z99.2 - Dependence on renal dialysis Status: Inactive Assessment and Plan: the patient has end-stage renal disease. He still makes some urine and so has residual function. He has been on dialysis for a few years. He has never been on hemodialysis. His catheter has been working well. His fluid was clear yesterday and so has no infection. He did not do dialysis for 3 nights because of his illness. He will get dialysis today. Volume status looks okay. Potassium is fine. (2) Cardiac arrest: Code(s): I46.9 - Cardiac arrest, cause unspecified Status: Acute Assessment and Plan: The patient is intubated. He is moving to the ICU. (3) Hypertension: Code(s): I10 - Essential (primary) hypertension Status: Acute Assessment and Plan: His blood pressure is moderately high. Will see how this does during the course the day. Consider folding medicines back in especially if it rises. (4) Renal osteodystrophy: Code(s): N25.0 - Renal osteodystrophy Status: Acute Assessment and Plan: Check a phosphorus level tomorrow (5) Erythropoietin deficiency anemia: Code(s): D63.1 - Anemia in chronic kidney disease Status: Acute Assessment and Plan: he is anemic but not enough to require Epogen at this point. (6) Gastroenteritis: Code(s): K52.9 - Noninfective gastroenteritis and colitis, unspecified Status: Acute Assessment and Plan: Treat symptomatically History of Present Illness Reason for Consult Consult date: 06/18/21 Chief Complaint Chief complaint: status post cardiac arrest History of Present Illness Narrative: Nate is a very pleasant 40-year-old gentleman who has multiple medical problems including hypertension, end-stage renal disease on peritoneal dialysis, anemia of chronic kidney disease, renal osteodystrophy, who came to the emergency room yesterday with belly pain. CT did not show much. His PD fluid was checked for infection and this was negative. He was diagnosed with gastroenteritis. His symptoms were nausea vomiting and small amounts of diarrhea with some blood in his stools. He was treated symptomatically and felt better. He was discharged. The patient was doing well at home. Feeling better and talkative. However at 1 point they were were sitting together on the bed and the patient slumped over. He fell and hit his head on the nightstand. She was able to roll him over on his back and called 911. When EMT is arrived he was in V-tach. They shocked him. Apparently he was intubated in the field and brought to the ER. He is going to be transferred to the ICU. The patient does not give any history right now. His life partner Mateo is in the room and gave me most of this history. The patient has had no heart issues. No pacemaker, no stents, no surgery, no heart attack or irregular heartbeat. Past history: As above social history: He does not smoke or drink. Allergies: None known. Review of Systems Review of Systems: ROS unobtainable: Yes unobtainable due to medical condition [facility] Past Medical History Medical History (Updated 06/18/21 @ 07:32 by George Gandhi MD) Cardiac arrest Erythropoietin deficiency anemia ESRD (end stage renal disease) on dialysis Gastroenteritis HTN (hypertension) Hypertension Renal osteodystrophy Social History Social History Gender identity (if verbalized by the patient): Male Meds Home Medications and Allergies Home Medications Medication Instructions Recorded Confirmed Type amlodipine 06/17/21 History carvedilol 06/17/21 History clonidine 06/17/21 History dicyclomine 20 mg PO TID PRN #10 tablet 06/17/21 Rx famotidine
[2021-06-18 07:50] LABS: Reflex Lactic Acid Yes or No Add Lactic
[2021-06-18 08:18] LABS: Troponin I 0.294 ng/mL (0.000-0.034)
--- NOTE | 2021-06-18 08:23 | PM.IMHP ---
H&P: HPI History of Present Illness Date/Time: 06/18/21 08:23 Chief Complaint: Cardiac arrest Narrative: 40yo male with ESRD and HTN who is brought in by EMS after sustaining a cardiac arrest. Patient currently intubated and sedated and thus unable to provide history. Majority of the history from the chart and from family. Patient has been feeling ill with n/v, diarrhea and abdominal pain which began in the evening of 06/16 after peritoneal dialysis treatment He only had partial treatment). Abdominal pain was diffuse and crampy with multiple episodes of vomiting and diarrhea. No fevers or sick contacts. He presented to the ED on the morning of06/17. His vital signs were stable except for BP 246/146. WBC was normal, BUN 53, Cr 11.6, serum bicarb 21 with normal gap and normal lipase. The remainder of his labs were unremarkable. Peritoneal fluid collected and showed clear fluid with 60 nucleated cells and no RBC. CT abdomen/pelvis showed small volume of ascites with free intraperitoneal gas in the upper abdomen and mild left hydronephrosis of unclear etiology. He was treated with morphine, Bentyl, Labetolol, hydralazine and zofran. He was felt to have gastroenteritis and discharged home with Zofran and Bentyl. The patient was able to eat and took one dose of Bentyl then slept throughout the day after discharge from the ED. The patient awoke around 2AM. He was talking to his significant other sitting at side of bed then mumbling before falling forward to the ground around 3AM today. EMS was called and found the patient with abnormal breathing and asystolic. CPR started. Monitor placed showing coarse VFib and nadeem received a shock and CPR resumed. VFib persisted and 2nd shock given. Nadeem received Epi and ultimately a 3rd and 4th shock due to persistent VFib. Patient was intubated in the field. In transit to the ED, the patient received Epi x2 and shock x2 for persistent VFib. Just before arrival to the ED, nadeem had a strong carotid pulse with monitor showing sinus tachycardia and he was attempting to breathe on his own. In the ED, BP 208/112 with pulse 54. ABG 7.17/35/270 on MV. Lactic 9.0, serum bicarb 11 and AG 19. LFTs elevated and Trop 0.3. EKG reviewed personally showing IVCD, QS in anteroseptal leads c/w NH and junctional rhythm rate 53. CXR c/w pulmonary edema. CT brain showing numerous small regions of significantly decreased attenuation in the bilateral basal ganglia, shereen and bilateral occipital white matter with differential listed. He was given NaBicarb, sedation and labetolol and admitted for further care. The nephrology note state patient has been without PD x 3 days. No fevers and abdomin felt 'it was on fire'. Was having blood in the stool when here in the ED on 06/17 but not at home. Review of Systems Review of Systems: ROS unobtainable: Yes unobtainable due to endotracheal tube and unobtainable due to mental status PMFSH Past Medical History Medical History (Updated 06/18/21 @ 10:45 by Rodrigo Olivia MD) Cardiac arrest Erythropoietin deficiency anemia ESRD (end stage renal disease) on dialysis Gastroenteritis HTN (hypertension) Hypertension Renal osteodystrophy Family History Family History Mother Hypertension Social History Social History (Updated 06/18/21 @ 09:20 by Rodrigo Olivia MD) Social History: Patient smokes half a pack a day and has smoked for 15 years up to a pack a no alcohol use. Smokes marijuana for appetite stimulant but no other drug use. Lives at home with his significant other, his mother and his maternal grandmother. his significant other is his caregiver. Full code is listed. Smoking packs per day: 1 Smoking cigarettes per day: 20.0 Smoking status: Unknown if ever smoked Tobacco type: cigarettes Alcohol intake: unknown Substance use: current Substance use type: marijuana Last use: smokes marijuan
[2021-06-18] MEDS: PROPOFOL IV EMULSION 100 ML 20.76 MG IV CONT (08:30)
--- NOTE | 2021-06-18 08:39 | ADMGEN ---
This patient, Nate Munroe, was admitted to Intensive Care Unit-3. Patient/family oriented to hospital policies and general routines including ID bracelet, bed and alarms, visiting hours, pain management, procedures, bathroom and other care routines, personal items, smoking policy, room service/diet, and visiting hours. Information on how to activate the Rapid Response Team has been discussed. Patient/Family are encouraged to report perceived risks to care and to ask questions if they do not understand what they are told or what they should do.
[2021-06-18] MEDS: LABETALOL HCL INJ 100 MG/20 ML VIAL 20 MG IV PUSH (08:43)
[2021-06-18] MEDS: hydrALAZINE HCL 20 MG/ML VIAL IV PUSH (08:52)
[2021-06-18] MEDS: PANTOPRAZOLE SODIUM IV 40 MG VIAL IV PUSH (08:57)
[2021-06-18] MEDS: MINERAL OIL/WHITE PETROLATUM OINTMENT 1 APPLIC EACH EYE ×2 (08:57→21:12)
[2021-06-18 08:58] LABS: Lactic Acid 1.1 mmol/L (0.7-2.1)
[2021-06-18] MEDS: LORazepam INJ (*CRX) 2 MG/ML VIAL IV PUSH (09:33)
[2021-06-18] MEDS: levETIRAcetam 1000MG/NACL100ML 1,000 MG/100 ML BAG 400 MG IVPB (09:35)
--- NOTE | 2021-06-18 09:50 | WPDCNINT ---
Assessment and Plan Assessment and plan (1) Cardiac arrest: Code(s): I46.9 - Cardiac arrest, cause unspecified Status: Acute Assessment and Plan: patient had a cardiac arrest at home of unclear etiology, according the records initially was in asystole followed by V-tach, defibrillation, VFib, shock and ACLS protocol. ROSC was obtained, According to medical records EMS arrived at 3:22 a.m. and ROSC was achieved at 3:41 a.m.. - Patient had metabolic acidosis with a serum bicarb of 11 a lactic acid of 9.0. electrolytes are within normal limits. - possible causes could be drug induced, PE, seizures. check urine drug screen. Continue tele monitoring. - Seizure activity post colon likely related to anoxic injury. Started on Keppra, patient did require Ativan - cardiology has been consulted, will check echocardiogram (2) Seizure: Code(s): R56.9 - Unspecified convulsions Status: Acute Assessment and Plan: post cardiac arrest seizure activity requiring Ativan . anoxic injury - Keppra was started, and Ativan has been ordered p.r.n.. (3) Acute respiratory failure: Code(s): J96.00 - Acute respiratory failure, unspecified whether with hypoxia or hypercapnia Status: Acute Assessment and Plan: acute respiratory failure with metabolic acidosis - intubated on 2020 - chest x-ray and ABGs reviewed, ventilator adjusted. Patient placed on 40% FiO2 and peep of 5, tidal volume is increased to 500 mL - sedated with propofol (4) Lactic acidosis: Code(s): E87.2 - Acidosis Status: Acute Assessment and Plan: likely related to cardiac arrest -repeat lactic acid has normalized - patient received 2 L of IV fluid bolus in the ER (5) Elevated LFTs: Code(s): R79.89 - Other specified abnormal findings of blood chemistry Status: Acute Assessment and Plan: elevated LFTs likely related to cardiac arrest - will trend LFTs (6) DVT prophylaxis: Code(s): Z29.9 - Encounter for prophylactic measures, unspecified Status: Acute Assessment and Plan: patient on SCDs - there is some mention of blood in the stools when he came to the ED on on 06/17. Will hold chemoprophylaxis for now (7) ESRD (end stage renal disease) on dialysis: Code(s): N18.6 - End stage renal disease; Z99.2 - Dependence on renal dialysis Status: Acute Assessment and Plan: patient has history of end-stage renal disease on peritoneal dialysis. - Metabolic acidosis likely related to lactic acidosis due to cardiac arrest - nephrology following the patient - PD per stone rougher (8) Gastroenteritis: Code(s): K52.9 - Noninfective gastroenteritis and colitis, unspecified Status: Acute Assessment and Plan: Pt with Nausea, vomiting and diarrhea, - check stool for C diff and culture - KUB during this admission showing normal bowel gas pattern the upper abdomen -FMS placed due to multiple episodes of diarrhea - CT scan Abd and pelvis: 1. Small volume of ascites with free intraperitoneal gas in the upper abdomen. Findings could be related to peritoneal dialysis as no definite source of free air is identified. 2. Mild left hydronephrosis of unclear etiology. (9) Erythropoietin deficiency anemia: Code(s): D63.1 - Anemia in chronic kidney disease Status: Acute Assessment and Plan: h/o Anemia, HB stable Will monitor (10) Hypertension: Code(s): I10 - Essential (primary) hypertension Status: Acute Assessment and Plan: patient hypertensive with systolics in the 230s to 240s upon arrival to the ICU, was given hydralazine and labetalol. Was started on home amlodipine. Blood pressures improved - CT scan of the brain: Numerous small regions of significantly decreased attenuation in the bilateral basal ganglia, shereen and bilateral occipital white matter. The differential diagnosis includes posterior reversibl
[2021-06-18 11:00] LABS: Amphetamine Screen Urine Negative (Negative); Barbiturate Screen Urine Negative (Negative); Benzodiazepines Screen Urine Negative (Negative); Cannabinoid Screen Urine Positive (Negative); Cocaine Screen Urine Negative (Negative); Methadone Screen Urine Negative (Negative); Opiate Screen Urine Positive (Negative); Phencyclidine Screen Urine Negative (Negative)
[2021-06-18 11:12] LABS: Troponin I 0.693 ng/mL (0.000-0.034)
--- NOTE | 2021-06-18 12:06 | PCNSR ---
On 06/18/21, the student, Celestina Diza, provided care and completed [facility] documentation on this patient. I have reviewed the student's documentation and agree with the findings. In addition, Propofol at 25.95mL/hr provides 685kcal per day.
[2021-06-18] MEDS: ASPIRIN 81 MG CHEWABLE TABLET PO (12:19)
[2021-06-18] MEDS: amLODIPine BESYLATE 5 MG TABLET 10 MG PO (12:19)
[2021-06-18] MEDS: PROPOFOL IV EMULSION 100 ML 25.95 MG IV CONT ×3 (12:24→21:11)
[2021-06-18] MEDS: SODIUM BICARBONATE 8.4% 100 MEQ in WATER, STERILE FOR INJECTION 1,000 ML 125 MEQ IV CONT ×2 (14:04→22:38)
[2021-06-18] MEDS: hydrALAZINE HCL 20 MG/ML VIAL 10 MG IV PUSH ×3 (14:04→21:23)
--- NOTE | 2021-06-18 14:18 | PM.CNCAR ---
Assessment and Plan Assessment and plan (1) Cardiac arrest: Code(s): I46.9 - Cardiac arrest, cause unspecified Status: Acute Assessment and Plan: status post VF arrest with multiple defibrillations currently sinus rhythm, unresponsive, sedated on mechanical ventilatory support. Unfortunately, showing evidence of anoxic injury with seizure on Keppra. - Echo preserved EF 65% no focal wall motion abnormalities, currently in sinus rhythm on telemetry. Junctional rhythm has resolved Most likely secondary to prolonged resuscitation /anoxia. Repeat 12 lead EKG. No evidence of acute infarction is etiology although patient with risk factors cannot entirely exclude underlying CAD. Neurologic status unfortunately is not favorable and at this point patient the most critical issue is meaningful neurologic recovery. No recurrent ventricular arrhythmias on telemetry. Continue. not a candidate for invasive angiography at this time minus neurologic recovery as above this may be considered. Unlikely to be severe CAD and or acute infarction is precipitating event given relatively low level troponin elevation, preserved LV function without wall motion abnormality yet precise etiology remains unknown. Marked LVH on echocardiogram most likely hypertensive heart disease, however, if were to consider HCM now with cardiac arrest potential for more advanced therapies and/or ICD would be entertained. However, given patient's clinical status this is a theoretical consideration this patient is not a candidate for these invasive therapies or ICD unless he recovers. Hold on BB given junctional rhythm at presentation. ASA 81mg daily ok for now. DVT prophylaxis. Spent 62 minutes in the care of this patient including at bedside, examination, chart review, provider discussions, and clinical decision making. (2) Anoxic brain injury: Code(s): G93.1 - Anoxic brain damage, not elsewhere classified Status: Acute Assessment and Plan: as above. Approximately 20 minutes down time multiple defibrillation for VF arrest. No hypothermia protocol initially at admission. Prognosis is poor, guarded. Next 24-[address] head significantly abnormal. BP control and supportive care if PRES syndrome. (3) Hypertensive urgency: Code(s): I16.0 - Hypertensive urgency Status: Acute Assessment and Plan: BP better controlled. Per Critical Care. Avoid hypotension. Marked hypertension /hypertensive urgency may have been related to noncompliance with clonidine with rebound hypertension due to illness although I cannot confirm at this time. Amlodipine has been continued. P.r.n. hydralazine. (4) Seizure: Code(s): R56.9 - Unspecified convulsions Status: Acute Assessment and Plan: Per Critical Care. On Keppra. On propofol as well. (5) ESRD (end stage renal disease) on dialysis: Code(s): N18.6 - End stage renal disease; Z99.2 - Dependence on renal dialysis Status: Acute Assessment and Plan: Per Nephrology. No reported evidence of spontaneous bacterial peritonitis or active infection. Dialysis per Nephrology. He had apparently missed 3 days of peritoneal dialysis prior to admission due to his illness. He was not hyperkalemic at admission. (6) Acute respiratory failure: Code(s): J96.00 - Acute respiratory failure, unspecified whether with hypoxia or hypercapnia Status: Acute Assessment and Plan: Currently intubated on mechanical ventilatory support. Management per Critical Care. History of Present Illness History of Present Illness Consult date/time: Date of service:06/18/21 14:18 Cardiology consultation at the request of Dr. Olivia for our opinion regarding cardiac arrest secondary to Ventricular Fibrillation. Requesting physician: Rodrigo Olivia MD Consult reason: Other ( cardiac arrest, ventricular fibrillation) Reason For Visit: status post car
[2021-06-18] MEDS: levETIRAcetam 500MG/NACL 100ML 500 MG/100 ML BAG 400 MG IVPB (21:12)
[2021-06-18] MEDS: LABETALOL HCL INJ 100 MG/20 ML VIAL IV PUSH (22:38)
[2021-06-19] VITALS (36 sets, daily range): BP systolic 120–204; BP diastolic 74–122; PULSE 87–103; RESP 16; TEMP 36.2–37.4; O2SAT 92–100
[2021-06-19] MEDS: LABETALOL HCL INJ 100 MG/20 ML VIAL 10 MG IV PUSH (00:25)
[2021-06-19] MEDS: PROPOFOL IV EMULSION 100 ML 25.95 MG IV CONT ×4 (00:40→11:52)
[2021-06-19] MEDS: PANTOPRAZOLE SODIUM IV 40 MG VIAL IV PUSH ×3 (01:29→21:44)
[2021-06-19] MEDS: METOPROLOL TARTRATE 25 MG TABLET FEED TUBE (01:29)
[2021-06-19] MEDS: hydrALAZINE HCL 20 MG/ML VIAL 10 MG IV PUSH (04:05)
[2021-06-19 04:55] LABS: Alveolar/Arterial O2 Gradient 81.6 mmHg; Base Excess ABG 1.5 mEq/l (+/-2.0); Carboxyhemoglobin 0.3 % THb (0-2.0); Fractional Inspired Oxygen 40 %; HCO3 ABG 25.5 mEq/l (22.0-26.0); Methemoglobin ABG 0.2 %THb (0-1.5); Oxygen Content ABG 18.2 %vol (16.0-22.0); Oxygen Saturation ABG 99.1 % (95.0-100.0); Oxyhemoglobin 97.7 % THb (90.0-100.0); PO2 ABG 159.9 mmHg (80.0-100.0); Reduced Hemoglobin 1.8 %THb (0-5.0); pH ABG 7.444 (7.350-7.450)
[2021-06-19 04:56] LABS: Device VENTILATOR; Modified Allen's Test Pass; Site Drawn LEFT RADIAL
[2021-06-19 04:57] LABS: Arterial Blood Gas PEEP 5 cmH2O; Arterial Blood Gas Tidal Volume 500 ml; Arterial Blood Gas Vent Mode CMV; Arterial Blood Gas Ventilator rate 16 /MIN
[2021-06-19 05:12] LABS: Basophils Percent Auto 0.2 % (0.2-1.2); Eosinophils Absolute Auto 0.1 K/mm3 (0-0.3); Eosinophils Percent Auto 0.9 % (0-4.4); Hematocrit 37.8 % (42.0-52.0); Hemoglobin 12.5 g/dL (14.0-18.0); Immature Granulocyte Absolute 0.04 K/mm3 (0.00-0.031); Immature Granulocyte Percent A 0.4 % (0-0.5); Lymphocytes Absolute Auto 0.75 K/mm3 (0.9-3.2); Lymphocytes Percent Auto 7.3 % (18.3-44.2); Mean Corpuscular HGB Conc 33.1 g/dl (32-36); Mean Corpuscular Hemoglobin 26.9 pg (26-34); Mean Corpuscular Volume 81.5 fl (80-100); Mean Platelet Volume 9.2 fl (7.4-10.4); Monocytes Absolute Auto 1.7 K/mm3 (0.1-0.6); Monocytes Percent Auto 16.4 % (2.6-8.5); Neutrophils Absolute Auto 7.7 K/mm3 (1.3-6.7); Neutrophils Percent Auto 74.8 % (45.5-73.1); Platelet Count Result 244 k/mm3 (150-375); Red Blood Count 4.64 M/mm3 (4.6-6.20); Red Cell Distribution Width 14.6 % (11.5-14.5); White Blood Count 10.3 K/mm3 (4.5-10.0)
[2021-06-19 05:24] LABS: Alanine Aminotransferase 230 U/L (4-50); Albumin Level 3.5 g/dL (3.5-5.1); Alkaline Phosphatase 49 U/L (38-126); Anion Gap 8 mmol/L (8-16); Aspartate Amino Transferase 182 U/L (17-59); Bilirubin,Total 0.4 mg/dL (0.2-1.3); Blood Urea Nitrogen 54 mg/dL (9-20); Calcium 9.1 mg/dL (8.4-10.2); Carbon Dioxide 27 mmol/L (22-30); Chloride 103 mmol/L (98-107); Estimated CRCL calculation 8 ml/min; Estimated Glomerular Filt Rate 6; Glucose 115 mg/dL (65-110); Magnesium 2.1 mg/dL (1.6-2.3); Phosphorus 6.4 mg/dL (2.5-4.5); Potassium 3.7 mmol/L (3.4-5.0); Sodium 138 mmol/L (137-145)
[2021-06-19] MEDS: CENTRAL LINE FLUSH 20 ML IV PUSH (05:28)
[2021-06-19] MEDS: CENTRAL LINE FLUSH 10 ML IV PUSH ×3 (05:29→21:38)
[2021-06-19] MEDS: LACTATED RINGERS 1,000 ML 75 ML IV CONT ×2 (08:25→21:37)
[2021-06-19] MEDS: ASPIRIN 81 MG CHEWABLE TABLET PO (08:28)
[2021-06-19] MEDS: hydrALAZINE HCL 20 MG/ML VIAL IV PUSH ×2 (08:28→14:51)
[2021-06-19] MEDS: MINERAL OIL/WHITE PETROLATUM OINTMENT 1 APPLIC EACH EYE ×2 (08:29→21:37)
[2021-06-19] MEDS: amLODIPine BESYLATE 5 MG TABLET 10 MG PO (08:34)
[2021-06-19] MEDS: levETIRAcetam 500MG/NACL 100ML 500 MG/100 ML BAG 400 MG IVPB ×2 (08:59→21:40)
--- NOTE | 2021-06-19 10:17 | PM.PNNEP ---
Progress Note: A&P Assessment and Plan (1) ESRD (end stage renal disease) on dialysis: Code(s): N18.6 - End stage renal disease; Z99.2 - Dependence on renal dialysis Status: Acute Assessment and Plan: the patient has end-stage renal disease. he is getting peritoneal dialysis. (2) Cardiac arrest: Code(s): I46.9 - Cardiac arrest, cause unspecified Status: Acute Assessment and Plan: The patient is intubated. He has not shown signs of interaction even when off the propofol. Multiple seizures yesterday. Cardiology and Critical Care on the case (3) Hypertension: Code(s): I10 - Essential (primary) hypertension Status: Acute Assessment and Plan: His blood pressure has risen. His home meds were restarted this morning. (4) Renal osteodystrophy: Code(s): N25.0 - Renal osteodystrophy Status: Acute Assessment and Plan: Check a phosphorus level tomorrow (5) Erythropoietin deficiency anemia: Code(s): D63.1 - Anemia in chronic kidney disease Status: Acute Assessment and Plan: he is anemic but not enough to require Epogen at this point. (6) Gastroenteritis: Code(s): K52.9 - Noninfective gastroenteritis and colitis, unspecified Status: Acute Assessment and Plan: Treat symptomatically Subjective Date/time seen: 06/19/21 10:17 Interval history: patient is sedated with propofol. He had multiple seizures yesterday and so was placed on Keppra. No seizures overnight still on the ventilator. Exam Narrative: Exam Narrative: WDWN in NAD on the ventilator and sedated. skin no rash head ncat lungs Mildly coarse cor reg no rub abd BS+ nontender and soft ext no edema. Objective Data Vital Signs Vital Signs: Vital Signs - 24 hr 06/18/21 11:20 06/18/21 12:00 06/18/21 12:24 Temperature 36.2 C L Pulse Rate 75 76 74 Respiratory Rate 16 16 Blood Pressure 156/94 H Pulse Oximetry 100 100 06/18/21 13:42 06/18/21 13:49 06/18/21 14:00 Temperature 36.2 C L Pulse Rate 73 74 76 Respiratory Rate 16 16 Blood Pressure 156/94 H 158/103 H Pulse Oximetry 100 100 06/18/21 14:58 06/18/21 15:23 06/18/21 16:00 Temperature 36.5 C Pulse Rate 84 80 Respiratory Rate 16 16 Blood Pressure 142/82 H 142/81 H Pulse Oximetry 100 06/18/21 17:26 06/18/21 20:00 06/18/21 20:13 Temperature 36.8 C Pulse Rate 89 87 85 Respiratory Rate 16 Blood Pressure 159/100 H Pulse Oximetry 99 98 98 06/18/21 21:11 06/18/21 21:15 06/18/21 22:00 Temperature Pulse Rate 97 94 92 Respiratory Rate 18 16 16 Blood Pressure 198/126 H 181/109 H Pulse Oximetry 99 96 06/18/21 22:38 06/18/21 22:56 06/18/21 22:58 Temperature Pulse Rate 94 78 88 Respiratory Rate 16 Blood Pressure 169/104 H Pulse Oximetry 98 96 06/18/21 23:01 06/19/21 00:00 06/19/21 00:40 Temperature 36.4 C L Pulse Rate 90 88 Respiratory Rate 16 16 Blood Pressure 170/106 H 177/113 H Pulse Oximetry 97 06/19/21 00:45 06/19/21 01:15 06/19/21 01:29 Temperature Pulse Rate 88 88 89 Respiratory Rate 16 16 Blood Pressure 169/109 H 184/112 H Pulse Oximetry 97 97 06/19/21 01:45 06/19/21 02:00 06/19/21 03:00 Temperature Pulse Rate 87 91 88 Respiratory Rate 16 16 Blood Pressure 195/118 H 187/121 H Pulse Oximetry 97 92 98 06/19/21 04:00 06/19/21 04:20 06/19/21 04:25 Temperature 36.4 C L Pulse Rate 89 96 95 Respiratory Rate 16 16 Blood Pressure 204/120 H 187/122 H Pulse Oximetry 99 97 97 06/19/21 04:50 06/19/21 06:00 06/19/21 08:11 Temperature Pulse Rate 94 94 103 H Respiratory Rate 16 16 Blood Pressure 182/114 H Pulse Oximetry 97 98 06/19/21 08:33 Temperature Pulse Rate 99 Respiratory Rate 16 Blood Pressure Pulse Oximetry Intake/Output Intake/Output: Intake & Output 06/16/21 06/17/21 06/18/21 06/19/21 23:59 23:59 23:5
[2021-06-19] MEDS: minoxidiL 2.5 MG TABLET 15 MG PO ×2 (11:32→18:22)
[2021-06-19] MEDS: carvediloL 25 MG TABLET PO ×2 (11:34→18:22)
[2021-06-19] MEDS: LOSARTAN POTASSIUM 100 MG TABLET PO (11:34)
--- NOTE | 2021-06-19 12:29 | PCFNICU ---
ICU Rounding Note: Pt current nutrition is NPO. Discussed tube feedings with MD. Recommending Nepro at 20 mL/hr for 22 hours/day providing 1,926 kcals, 81 gm protein, and 410 mL free water. The protein estimation includes Prostat TID. The fluid estimation also includes fluid from Prostat flushes. Last recorded weight is 90.5kg. Bowel Motility: Last BM: 06/18 x5 Labs Reviewed: Hgb 12.5, Hct 37.8, Alb 3.5, Na 138, K 3.7, GFR 6, BUN 54, Cr 12.2, Glu 115 Meds Noted: Norvasc, Aspirin, Coreg, Clonidine, Apresoline, Lactated Ringers @ 75 mLs/hr, Keppra IV, Ativan, Cozaar, Loniten, Protonix, Diprivan, Central line flush, Vancomycin. Additional Notes: Patient is currently receiving 25.95 mL/hr of Propofol. Propofol and Dialysate taken into consideration when calculating Tube Feed recommendations. No pressure sores noted. FMS in place. Following daily in ICU rounds. Assessing/reassessing tube feedings Tuesdays and Fridays.
--- NOTE | 2021-06-19 12:33 | PM.PNCARD ---
Progress Note: A&P Assessment and Plan (1) Cardiac arrest: Code(s): I46.9 - Cardiac arrest, cause unspecified Status: Acute Assessment and Plan: - Status post VF arrest with multiple defibrillations currently sinus rhythm, unresponsive, sedated on mechanical ventilatory support. Unfortunately, showing evidence of anoxic injury with seizure on Keppra. - Electrolytes stable, management per PD. - Echo preserved EF 65% no focal wall motion abnormalities, currently in sinus rhythm on telemetry. Junctional rhythm resolved most likely secondary to prolonged resuscitation /anoxia. No evidence of acute infarction is etiology although patient with risk factors cannot entirely exclude underlying CAD. Neurologic status unfortunately is not favorable and at this point patient the most critical issue is meaningful neurologic recovery. - No recurrent ventricular arrhythmias on telemetry. Continue to monitor. not a candidate for invasive angiography at this time minus neurologic recovery as above this may be considered. - Unlikely to be severe CAD and or acute infarction as precipitating event given relatively low level troponin elevation, preserved LV function without wall motion abnormality yet precise etiology remains unknown. - Severe LVH on echocardiogram most likely hypertensive heart disease, however, if were to consider HCM now with cardiac arrest potential for more advanced therapies and/or ICD would be entertained. However, given patient's clinical status this is a theoretical consideration this patient is not a candidate for these invasive therapies or ICD unless he recovers. Hold on BB given junctional rhythm at presentation. - ASA 81mg daily. DVT prophylaxis. - Will follow with you. Neuro recovery is paramount. Continue supportive care. (2) Anoxic brain injury: Code(s): G93.1 - Anoxic brain damage, not elsewhere classified Status: Acute Assessment and Plan: Prognosis guarded, remains poor overall. Will need to observe off sedation. Approximately 20 minutes down time multiple defibrillation for VF arrest. No hypothermia protocol initially at admission. Prognosis is poor, guarded. Next 24-[address] head significantly abnormal. BP control and supportive care if PRES syndrome. (3) Hypertensive urgency: Code(s): I16.0 - Hypertensive urgency Status: Acute Assessment and Plan: BP elevated spiking off sedation. Minoxidil restarted. Con Losartan, Amlodipine, and Carvedilol. Management per Critical Care. Avoid hypotension. (4) Seizure: Code(s): R56.9 - Unspecified convulsions Status: Acute Assessment and Plan: Per Critical Care. On Keppra. On propofol as well. stable. (5) ESRD (end stage renal disease) on dialysis: Code(s): N18.6 - End stage renal disease; Z99.2 - Dependence on renal dialysis Status: Acute Assessment and Plan: Recommendations Per Nephrology. No reported evidence of spontaneous bacterial peritonitis or active infection. Dialysis per Nephrology. He had apparently missed 3 days of peritoneal dialysis prior to admission due to his illness. He was not hyperkalemic at admission. (6) Acute respiratory failure: Code(s): J96.00 - Acute respiratory failure, unspecified whether with hypoxia or hypercapnia Status: Acute Assessment and Plan: Currently intubated on mechanical ventilatory support. Management per Critical Care. Subjective Date/time seen: Date of service:06/19/21 12:33 Follow-up for cardiac arrest secondary to VF anoxic encephalopathy Patient remains intubated. Blood pressure spikes off sedation to SBP>200mmHg so Propofol restarted. No reported seizures overnight/this AM. Maintaining sinus rhythm on telemetry. Reported gag reflex with suctioning, pupillary response but no other purposeful movements following commands even off Propofol. Review of System
--- NOTE | 2021-06-19 12:43 | ECG_ITS ---
Measurements Intervals Hector Rate: 93 P: 57 AK: 142 QRS: 46 QRSD: 97 T: 187 QT: 378 QTc: 472 Interpretive Statements SINUS RHYTHM LEFT VENTRICULAR HYPERTROPHY AND ST-T CHANGE BORDERLINE ST-T WAVE ABNORMALITY- INFERIOR LEADS BORDERLINE ECG Electronically Signed On 06-19-2021 13:16:33 CDT by Soy Fontaine D.O.
--- NOTE | 2021-06-19 12:53 | WPDINTPN ---
Progress Note: A&P Assessment and Plan (1) Cardiac arrest: Code(s): I46.9 - Cardiac arrest, cause unspecified Status: Acute Assessment and Plan: patient had a cardiac arrest at home of unclear etiology, according the records initially was in asystole followed by V-tach, defibrillation, VFib, shock and ACLS protocol. ROSC was obtained, According to medical records EMS arrived at 3:22 a.m. and ROSC was achieved at 3:41 a.m.. - lactic acid and metabolic acidosis has resolved. electrolytes are within normal limits. - possible causes could be drug induced, PE, seizures. - drug screen was positive for opiates and cannabinoids - Seizure activity post colon likely related to anoxic injury. continue Keppra, patient did require Ativan - appreciate cardiology evaluation recommendation - echocardiogram showed EF of 65-70%. Severe concentric increased left ventricular wall thickness. Grade 1 diastolic dysfunction. Mild pulmonary hypertension with RVSP of 38 mmHg. (2) Seizure: Code(s): R56.9 - Unspecified convulsions Status: Acute Assessment and Plan: post cardiac arrest seizure activity requiring Ativan . Could be related to anoxic injury - continue Keppra, and Ativan has been ordered p.r.n.. (3) Acute respiratory failure: Code(s): J96.00 - Acute respiratory failure, unspecified whether with hypoxia or hypercapnia Status: Acute Assessment and Plan: acute respiratory failure with metabolic acidosis - intubated on 2020 - chest x-ray and ABGs reviewed, ventilator adjusted. Patient placed on 40% FiO2 and peep of 5, tidal volume is increased to 500 mL - wean propofol as tolerated to wake up the patientl (4) Lactic acidosis: Code(s): E87.2 - Acidosis Status: Acute Assessment and Plan: RESOLVED likely related to cardiac arrest -repeat lactic acid has normalized - patient received 2 L of IV fluid bolus in the ER (5) Elevated LFTs: Code(s): R79.89 - Other specified abnormal findings of blood chemistry Status: Acute Assessment and Plan: elevated LFTs likely related to cardiac arrest - LFTs trending down gradually (6) DVT prophylaxis: Code(s): Z29.9 - Encounter for prophylactic measures, unspecified Status: Acute Assessment and Plan: patient on SCDs - there is some mention of blood in the stools when he came to the ED on on 06/17. Will hold chemoprophylaxis for now (7) ESRD (end stage renal disease) on dialysis: Code(s): N18.6 - End stage renal disease; Z99.2 - Dependence on renal dialysis Status: Acute Assessment and Plan: patient has history of end-stage renal disease on peritoneal dialysis. - Metabolic acidosis likely related to lactic acidosis due to cardiac arrest - nephrology following the patient - PD per forest nursery worker (8) Gastroenteritis: Code(s): K52.9 - Noninfective gastroenteritis and colitis, unspecified Status: Acute Assessment and Plan: Pt with Nausea, vomiting and diarrhea, - stool culture and C diff pending - KUB during this admission showing normal bowel gas pattern the upper abdomen -FMS placed due to multiple episodes of diarrhea - CT scan Abd and pelvis: 1. Small volume of ascites with free intraperitoneal gas in the upper abdomen. Findings could be related to peritoneal dialysis as no definite source of free air is identified. 2. Mild left hydronephrosis of unclear etiology. (9) Erythropoietin deficiency anemia: Code(s): D63.1 - Anemia in chronic kidney disease Status: Acute Assessment and Plan: h/o Anemia, HB stable Will monitor (10) Hypertension: Code(s): I10 - Essential (primary) hypertension Status: Acute Assessment and Plan: patient hypertensive with systolics in the 230s to 240s upon arrival to the ICU, was given hydralazine and labetalol. Was started on home amlodipine. Blood pressures im
--- NOTE | 2021-06-19 12:57 | PCNSR ---
On 06/19/21, the student, Celestina Diaz, provided care and completed [email or web address] documentation on this patient. I have reviewed the student's documentation and agree with the findings.
[2021-06-19] MEDS: PROPOFOL IV EMULSION 100 ML 23.36 MG IV CONT (15:47)
[2021-06-19] MEDS: PROPOFOL IV EMULSION 100 ML 20.76 MG IV CONT (21:36)
[2021-06-19] MEDS: LORazepam INJ (*CRX) 2 MG/ML VIAL IV PUSH (23:43)
[2021-06-20] VITALS (24 sets, daily range): BP systolic 81–144; BP diastolic 50–78; PULSE 88–102; RESP 12–17; TEMP 36.7–38.7; O2SAT 91–100
[2021-06-20] MEDS: PROPOFOL IV EMULSION 100 ML 20.76 MG IV CONT (00:31)
[2021-06-20 04:26] LABS: Hematocrit 34.9 % (42.0-52.0); Hemoglobin 11.2 g/dL (14.0-18.0); Mean Corpuscular HGB Conc 32.1 g/dl (32-36); Mean Corpuscular Hemoglobin 27.1 pg (26-34); Mean Corpuscular Volume 84.5 fl (80-100); Mean Platelet Volume 9.4 fl (7.4-10.4); Platelet Count Result 210 k/mm3 (150-375); Red Blood Count 4.13 M/mm3 (4.6-6.20); Red Cell Distribution Width 15.1 % (11.5-14.5); White Blood Count 10.1 K/mm3 (4.5-10.0)
[2021-06-20 04:39] LABS: Alanine Aminotransferase 151 U/L (4-50); Albumin Level 3.1 g/dL (3.5-5.1); Alkaline Phosphatase 44 U/L (38-126); Anion Gap 12 mmol/L (8-16); Aspartate Amino Transferase 100 U/L (17-59); Bilirubin,Total 0.3 mg/dL (0.2-1.3); Blood Urea Nitrogen 53 mg/dL (9-20); Calcium 8.5 mg/dL (8.4-10.2); Carbon Dioxide 26 mmol/L (22-30); Chloride 102 mmol/L (98-107); Estimated CRCL calculation 8 ml/min; Estimated Glomerular Filt Rate 5; Glucose 116 mg/dL (65-110); Magnesium 2.1 mg/dL (1.6-2.3); Phosphorus 8.3 mg/dL (2.5-4.5); Potassium 3.9 mmol/L (3.4-5.0); Sodium 140 mmol/L (137-145)
[2021-06-20 04:57] LABS: Vancomycin Random 18.8 ug/mL (10-20)
[2021-06-20 05:16] LABS: Alveolar/Arterial O2 Gradient 136.8 mmHg; Carboxyhemoglobin 0.3 % THb (0-2.0); Fractional Inspired Oxygen 40 %; HCO3 ABG 26.9 mEq/l (22.0-26.0); Methemoglobin ABG 0.3 %THb (0-1.5); Oxygen Content ABG 17.1 %vol (16.0-22.0); Oxygen Saturation ABG 97.6 % (95.0-100.0); Oxyhemoglobin 95.7 % THb (90.0-100.0); PCO2 ABG 42.9 mmHg (35.0-45.0); PO2 ABG 99.1 mmHg (80.0-100.0); PO2 FiO2 Ratio Arterial Blood 2.48 %; Reduced Hemoglobin 3.7 %THb (0-5.0); Total Hemoglobin 12.6 g/dL (12.0-18.0); pH ABG 7.415 (7.350-7.450)
[2021-06-20 05:17] LABS: Device VENTILATOR; Modified Allen's Test Unable to perform; Site Drawn RIGHT RADIAL
[2021-06-20 05:18] LABS: Arterial Blood Gas PEEP 5 cmH2O; Arterial Blood Gas Vent Mode CMV; Arterial Blood Gas Ventilator rate 16 /MIN
[2021-06-20 05:19] LABS: Arterial Blood Gas Tidal Volume 500 ml
[2021-06-20] MEDS: CENTRAL LINE FLUSH 10 ML IV PUSH ×3 (05:58→20:06)
[2021-06-20] MEDS: minoxidiL 2.5 MG TABLET 15 MG PO (08:06)
[2021-06-20] MEDS: LOSARTAN POTASSIUM 100 MG TABLET PO (08:06)
[2021-06-20] MEDS: PANTOPRAZOLE SODIUM IV 40 MG VIAL IV PUSH ×2 (08:06→20:05)
[2021-06-20] MEDS: carvediloL 25 MG TABLET PO (08:08)
[2021-06-20] MEDS: levETIRAcetam 500MG/NACL 100ML 500 MG/100 ML BAG 400 MG IVPB ×2 (08:08→20:05)
[2021-06-20] MEDS: ASPIRIN 81 MG CHEWABLE TABLET PO (08:08)
[2021-06-20] MEDS: amLODIPine BESYLATE 5 MG TABLET 10 MG PO (08:08)
[2021-06-20] MEDS: MINERAL OIL/WHITE PETROLATUM OINTMENT 1 APPLIC EACH EYE ×2 (08:09→20:05)
--- NOTE | 2021-06-20 08:16 | PM.PNNEP ---
Progress Note: A&P Assessment and Plan (1) ESRD (end stage renal disease) on dialysis: Code(s): N18.6 - End stage renal disease; Z99.2 - Dependence on renal dialysis Status: Acute Assessment and Plan: the patient has end-stage renal disease. on peritoneal dialysis and tolerating it well. Fluid has been clear. He was seen at 7:[address] Porter (2) Cardiac arrest: Code(s): I46.9 - Cardiac arrest, cause unspecified Status: Acute Assessment and Plan: The patient is intubated. Propofol is being stopped now to assess mental function. (3) Hypertension: Code(s): I10 - Essential (primary) hypertension Status: Acute Assessment and Plan: His blood pressure Is under good control having restarted his home meds We can stop his IV fluids. (4) Renal osteodystrophy: Code(s): N25.0 - Renal osteodystrophy Status: Acute Assessment and Plan: Check a phosphorus level tomorrow phosphorus very high. He is getting Nepro. His phosphorus should come down. Will follow this. (5) Erythropoietin deficiency anemia: Code(s): D63.1 - Anemia in chronic kidney disease Status: Acute Assessment and Plan: he is anemic but not enough to require Epogen at this point. (6) Gastroenteritis: Code(s): K52.9 - Noninfective gastroenteritis and colitis, unspecified Status: Acute Assessment and Plan: Treat symptomatically Subjective Date/time seen: 06/20/21 08:16 Interval history: patient is sedated with propofol. No more seizures. Still on the ventilator. Exam Narrative: Exam Narrative: WDWN in NAD on the ventilator and sedated. skin no rash head ncat lungs Mildly coarse cor reg no rub Or gallop abd BS+ nontender and soft ext no edema or cyanosis. Objective Data Vital Signs Vital Signs: Vital Signs - 24 hr 06/19/21 08:33 06/19/21 10:00 06/19/21 10:45 Temperature 36.2 C L Pulse Rate 99 101 H 98 Respiratory Rate 16 16 16 Blood Pressure 176/107 H 171/112 H Pulse Oximetry 98 06/19/21 11:34 06/19/21 11:37 06/19/21 11:52 Temperature Pulse Rate 97 99 96 Respiratory Rate 16 Blood Pressure Pulse Oximetry 98 06/19/21 12:00 06/19/21 14:00 06/19/21 14:24 Temperature 37.1 C Pulse Rate 97 96 96 Respiratory Rate 16 16 Blood Pressure 172/112 H 173/103 H Pulse Oximetry 99 99 99 06/19/21 15:47 06/19/21 16:00 06/19/21 16:31 Temperature 37.1 C Pulse Rate 99 98 96 Respiratory Rate 16 16 Blood Pressure 143/82 H Pulse Oximetry 96 96 06/19/21 18:00 06/19/21 18:22 06/19/21 19:55 Temperature 37.4 C Pulse Rate 97 99 89 Respiratory Rate 16 Blood Pressure 136/77 Pulse Oximetry 97 98 06/19/21 20:00 06/19/21 20:04 06/19/21 21:15 Temperature 36.8 C 36.2 C L Pulse Rate 92 92 92 Respiratory Rate 16 16 Blood Pressure 130/75 120/74 Pulse Oximetry 99 100 06/19/21 21:36 06/19/21 22:00 06/19/21 23:39 Temperature Pulse Rate 92 96 96 Respiratory Rate 16 16 Blood Pressure 128/76 Pulse Oximetry 97 99 06/20/21 00:00 06/20/21 00:31 06/20/21 02:00 Temperature 36.7 C 36.7 C Pulse Rate 94 96 92 Respiratory Rate 16 16 16 Blood Pressure 103/59 L 128/78 Pulse Oximetry 98 97 06/20/21 02:20 06/20/21 04:00 06/20/21 04:47 Temperature 37.2 C Pulse Rate 93 93 93 Respiratory Rate 16 Blood Pressure 144/58 H Pulse Oximetry 99 97 97 06/20/21 06:00 06/20/21 08:08 Temperature 37.2 C Pulse Rate 88 90 Respiratory Rate 16 Blood Pressure 106/54 L Pulse Oximetry 97 Intake/Output Intake/Output: Intake & Output 06/17/21 06/18/21 06/19/21 06/20/21 23:59 23:59 23:59 23:59 Intake Total 4800 2500 100 Output Total 600 1267 110 Balance 4200 1233 -10 Meds/Results Medications: Active Medications Generic Name Dose Route Start Last Admin Trade Name Freq PRN Reason Stop Dose Admin Amlodipine
--- NOTE | 2021-06-20 11:22 | WPDINTPN ---
Progress Note: A&P Assessment and Plan (1) Cardiac arrest: Code(s): I46.9 - Cardiac arrest, cause unspecified Status: Acute Assessment and Plan: patient had a cardiac arrest at home of unclear etiology, according the records initially was in asystole followed by V-tach, defibrillation, VFib, shock and ACLS protocol. ROSC was obtained, According to medical records EMS arrived at 3:22 a.m. and ROSC was achieved at 3:41 a.m.. - lactic acid and metabolic acidosis has resolved. electrolytes are within normal limits. - possible causes could be drug induced, PE, seizures. - drug screen was positive for opiates and cannabinoids - Seizure activity post colon likely related to anoxic injury. continue Keppra, patient did require Ativan - appreciate cardiology evaluation recommendation - echocardiogram showed EF of 65-70%. Severe concentric increased left ventricular wall thickness. Grade 1 diastolic dysfunction. Mild pulmonary hypertension with RVSP of 38 mmHg. - Off sedation patient opens eyes, follows simple commands in bilateral upper extremity and right lower extremity, still somnolent (2) Seizure: Code(s): R56.9 - Unspecified convulsions Status: Acute Assessment and Plan: post cardiac arrest seizure activity requiring Ativan . Could be related to anoxic injury - continue Keppra, and Ativan has been ordered p.r.n.. (3) Acute respiratory failure: Code(s): J96.00 - Acute respiratory failure, unspecified whether with hypoxia or hypercapnia Status: Acute Assessment and Plan: acute respiratory failure with metabolic acidosis - intubated on 2020 - chest x-ray and ABGs reviewed, ventilator adjusted. Patient placed on 40% FiO2 and peep of 5, tidal volume is increased to 500 mL - keep off sedation (4) Lactic acidosis: Code(s): E87.2 - Acidosis Status: Acute Assessment and Plan: RESOLVED likely related to cardiac arrest -repeat lactic acid has normalized - patient received 2 L of IV fluid bolus in the ER (5) Elevated LFTs: Code(s): R79.89 - Other specified abnormal findings of blood chemistry Status: Acute Assessment and Plan: elevated LFTs likely related to cardiac arrest - LFTs trending down gradually (6) DVT prophylaxis: Code(s): Z29.9 - Encounter for prophylactic measures, unspecified Status: Acute Assessment and Plan: patient on SCDs - there is some mention of blood in the stools when he came to the ED on on 06/17. Will hold chemoprophylaxis for now (7) ESRD (end stage renal disease) on dialysis: Code(s): N18.6 - End stage renal disease; Z99.2 - Dependence on renal dialysis Status: Acute Assessment and Plan: patient has history of end-stage renal disease on peritoneal dialysis. - Metabolic acidosis likely related to lactic acidosis due to cardiac arrest - nephrology following the patient - PD per press clippings cutter and paster (8) Gastroenteritis: Code(s): K52.9 - Noninfective gastroenteritis and colitis, unspecified Status: Acute Assessment and Plan: Pt with Nausea, vomiting and diarrhea, - stool for C diff is negative - stool cultures pending - KUB during this admission showing normal bowel gas pattern the upper abdomen -FMS placed due to multiple episodes of diarrhea - CT scan Abd and pelvis: 1. Small volume of ascites with free intraperitoneal gas in the upper abdomen. Findings could be related to peritoneal dialysis as no definite source of free air is identified. 2. Mild left hydronephrosis of unclear etiology. (9) Erythropoietin deficiency anemia: Code(s): D63.1 - Anemia in chronic kidney disease Status: Acute Assessment and Plan: h/o Anemia, HB stable Will monitor (10) Hypertension: Code(s): I10 - Essential (primary) hypertension Status: Acute Assessment and Plan: patient hypertensive with systolics in the 23
--- NOTE | 2021-06-20 12:30 | PCFNICU ---
ICU Rounding Note: Pt current nutrition is Tube Feedings. Patient receiving Nepro at 30 mL/hr providing 1,738 kcals, 99 gm protein and 659 mL free water. Calculations estimated using 22 hours/day. Protein estimation includes TID Prostat flushes. Calorie estimations include Dialystate dextrose absorption. Last recorded weight is 90.5 kg. Bowel Motility: Fecal Containment device in use. Labs Reviewed: Hgb 12.5, Hct 37.8, Alb 3.5, Na 138, K 3.7, GFR 6, BUN 54, Cr 12.2, Glu 115 Meds Noted: Tylenol, Norvasc, Aspirin, Coreg, Clonidine, Apresoline, Keppra IV (800 mLs per day), Ativan, Cozaar, Loniten, Protonix, Central line flush, Vancomycin. Additional Notes: Propofol has been discontinued. Due to patient tolerating rate of 20 mL/hr and discontinuation of Propofol, patient's tube feeding goal rate is 30 mL/hr. No skin issues except small lower left abdominal puncture. Will continue to monitor tube feeding tolerance, weight and any other changes in status. Following daily in ICU rounds. Assessing/reassessing every Thursday and Thursday.
[2021-06-20] MEDS: ACETAMINOPHEN ELIXIR 325 MG/10.15 ML UDC 650 MG FEED TUBE (12:33)
[2021-06-20 12:47] LABS: Glucose Point of Care 123 mg/dl (65-105)
--- NOTE | 2021-06-20 13:42 | PCNSR ---
On 06/20/21, the student, Celestina Diaz, provided care and completed [facility] documentation on this patient. I have reviewed the student's documentation and agree with the findings.
[2021-06-20] MEDS: PROPOFOL IV EMULSION 100 ML 2.6 MG IV CONT (14:50)
[2021-06-21] VITALS (20 sets, daily range): BP systolic 94–137; BP diastolic 55–83; PULSE 84–113; RESP 11–19; TEMP 37.3–38.1; O2SAT 91–100
[2021-06-21 03:56] LABS: Hemoglobin 9.9 g/dL (14.0-18.0); Mean Corpuscular HGB Conc 31.9 g/dl (32-36); Mean Corpuscular Hemoglobin 27.1 pg (26-34); Mean Corpuscular Volume 84.9 fl (80-100); Mean Platelet Volume 9.7 fl (7.4-10.4); Platelet Count Result 179 k/mm3 (150-375); Red Blood Count 3.65 M/mm3 (4.6-6.20); Red Cell Distribution Width 15.2 % (11.5-14.5); White Blood Count 17.1 K/mm3 (4.5-10.0)
[2021-06-21 04:12] LABS: Alanine Aminotransferase 130 U/L (4-50); Alkaline Phosphatase 42 U/L (38-126); Anion Gap 13 mmol/L (8-16); Aspartate Amino Transferase 74 U/L (17-59); Bilirubin,Total 0.3 mg/dL (0.2-1.3); Blood Urea Nitrogen 63 mg/dL (9-20); Calcium 8.4 mg/dL (8.4-10.2); Carbon Dioxide 25 mmol/L (22-30); Chloride 101 mmol/L (98-107); Glucose 136 mg/dL (65-110); Magnesium 2.1 mg/dL (1.6-2.3); Phosphorus 9.3 mg/dL (2.5-4.5); Potassium 3.8 mmol/L (3.4-5.0); Sodium 139 mmol/L (137-145)
[2021-06-21 04:18] LABS: Estimated CRCL calculation 7 ml/min; Estimated Glomerular Filt Rate 5
[2021-06-21 04:46] LABS: Base Excess ABG 2.3 mEq/l (+/-2.0); Carboxyhemoglobin 0.3 % THb (0-2.0); Fractional Inspired Oxygen 40 %; HCO3 ABG 26.9 mEq/l (22.0-26.0); Methemoglobin ABG 0.3 %THb (0-1.5); Oxygen Content ABG 20.8 %vol (16.0-22.0); Oxygen Saturation ABG 95.9 % (95.0-100.0); Oxyhemoglobin 94.2 % THb (90.0-100.0); PCO2 ABG 41.4 mmHg (35.0-45.0); PO2 ABG 78.6 mmHg (80.0-100.0); PO2 FiO2 Ratio Arterial Blood 1.96 %; Reduced Hemoglobin 5.2 %THb (0-5.0); Total Hemoglobin 15.7 g/dL (12.0-18.0)
[2021-06-21 04:47] LABS: Arterial Blood Gas PEEP 5 cmH2O; Arterial Blood Gas Vent Mode ASV; Device VENTILATOR; Modified Allen's Test Pass; Site Drawn LEFT RADIAL
[2021-06-21 04:51] LABS: Vancomycin Random 16.1 ug/mL (10-20)
[2021-06-21] MEDS: levETIRAcetam 500MG/NACL 100ML 500 MG/100 ML BAG 400 MG IVPB (07:53)
[2021-06-21] MEDS: ASPIRIN 81 MG CHEWABLE TABLET PO (07:53)
[2021-06-21] MEDS: PANTOPRAZOLE SODIUM IV 40 MG VIAL IV PUSH ×2 (07:53→20:57)
[2021-06-21] MEDS: CENTRAL LINE FLUSH 10 ML IV PUSH ×3 (07:54→20:50)
[2021-06-21] MEDS: MINERAL OIL/WHITE PETROLATUM OINTMENT 1 APPLIC EACH EYE ×2 (07:54→20:49)
[2021-06-21] MEDS: hetaSTARCH 6%/NACL 500 ML 250 ML IV CONT (08:45)
--- NOTE | 2021-06-21 11:34 | WPDNEUROLOGY ---
Neurology EEG Report General Information Date of Study: 06/21/21 TEST EEG DIAGNOSIS Seizures CONDITION OF RECORDING unresponsive CLINICAL HISTORY patient suffered a cardiac arrest 3 days ago and was down for at least 20 minutes with no CPR remains on when but no sedation. Unresponsive at the time of tracing with head movements EEG DESCRIPTION whole record consists of medium to high voltage 5 to 7 hertz per 2nd theta admixed with 3 to 4 hertz per 2nd delta activity and intermittent EKG artifacts along with the movements artifacts hyperventilation obviously not done photic stimulation not done. Non paroxysmal. Nonfocal. And nonlateralizing. IMPRESSION Abnormal record due to the presence of bihemispheric theta and delta activity without any paroxysmal discharge. These abnormalities are suggestive of underlying organic or metabolic encephalopathy or postictal state. clinical correlation recommended
--- NOTE | 2021-06-21 11:46 | PM.PNNEP ---
Progress Note: A&P Assessment and Plan (1) ESRD (end stage renal disease) on dialysis: Code(s): N18.6 - End stage renal disease; Z99.2 - Dependence on renal dialysis Status: Acute Assessment and Plan: the patient has end-stage renal disease. continue peritoneal dialysis. Noted the rising BUN and creatinine. Will increase the dose Discussed with Dr. Porter (2) Cardiac arrest: Code(s): I46.9 - Cardiac arrest, cause unspecified Status: Acute Assessment and Plan: The patient is intubated. Propofol is being stopped now to assess mental function. (3) Hypertension: Code(s): I10 - Essential (primary) hypertension Status: Acute Assessment and Plan: His blood pressure dropped yesterday. Now off all blood pressure meds. He may be dry. (4) Renal osteodystrophy: Code(s): N25.0 - Renal osteodystrophy Status: Acute Assessment and Plan: Check a phosphorus level tomorrow phosphorus very high and rising. He is getting Nepro. will add binders. (5) Erythropoietin deficiency anemia: Code(s): D63.1 - Anemia in chronic kidney disease Status: Acute Assessment and Plan: Hemoglobin below 10. Add EPO. (6) Gastroenteritis: Code(s): K52.9 - Noninfective gastroenteritis and colitis, unspecified Status: Acute Assessment and Plan: Treat symptomatically Subjective Date/time seen: 06/21/21 11:46 Interval history: patient is sedated with propofol. he was moving around a bit yesterday when off the propofol. Placed back on a lower dose now. Little urine output. Only 150cc overnight Exam Narrative: Exam Narrative: WDWN in NAD on the ventilator and sedated. skin no rash or subcu nodules head ncat lungs Mildly coarse cor reg no rub Or gallop abd BS+ nontender and soft ext no edema or cyanosis. Objective Data Vital Signs Vital Signs: Vital Signs - 24 hr 06/20/21 12:00 06/20/21 12:33 06/20/21 13:30 Temperature 38.6 C H 38.7 C H 38.6 C H Pulse Rate 100 Respiratory Rate 14 Blood Pressure 81/50 L Pulse Oximetry 100 06/20/21 14:00 06/20/21 14:15 06/20/21 16:00 Temperature 38.5 C H 38.4 C H Pulse Rate 102 H 99 99 Respiratory Rate 14 14 Blood Pressure 98/62 L 97/64 L Pulse Oximetry 96 95 94 06/20/21 17:02 06/20/21 18:00 06/20/21 20:00 Temperature 38.3 C H 38.1 C H Pulse Rate 101 H 98 97 Respiratory Rate 13 17 Blood Pressure 116/54 L 101/61 Pulse Oximetry 95 94 93 06/20/21 22:00 06/20/21 23:08 06/21/21 00:00 Temperature 37.9 C H 37.8 C H Pulse Rate 92 94 92 Respiratory Rate 12 11 L Blood Pressure 94/55 L 108/55 L Pulse Oximetry 91 93 92 06/21/21 02:00 06/21/21 02:34 06/21/21 04:00 Temperature 37.7 C H 37.3 C Pulse Rate 92 88 87 Respiratory Rate 11 L 15 Blood Pressure 97/55 L 114/65 Pulse Oximetry 94 91 93 06/21/21 04:49 06/21/21 06:00 06/21/21 08:05 Temperature 37.6 C Pulse Rate 86 88 84 Respiratory Rate 15 Blood Pressure 94/55 L Pulse Oximetry 93 96 93 06/21/21 11:16 Temperature Pulse Rate 93 Respiratory Rate Blood Pressure Pulse Oximetry 97 Intake/Output Intake/Output: Intake & Output 06/18/21 06/19/21 06/20/21 06/21/21 23:59 23:59 23:59 23:59 Intake Total 4800 2500 1816.2 439 Output Total 600 1267 2062 110 Balance 4200 1233 -245.8 329 Meds/Results Medications: Active Medications Generic Name Dose Route Start Last Admin Trade Name Freq PRN Reason Stop Dose Admin Acetaminophen 650 mg 06/20/21 12:07 06/20/21 12:33 Acetaminophen Elixir 325 Mg/10.15 Ml Udc FEED TUBE 650 mg Q6H PRN Administration Mild Pain (1-3) or Fever Amlodipine Besylate 10 mg 06/18/21 09:10 06/20/21 08:08 Amlodipine Besylate 5 Mg Tablet PO 10 mg QAM REPLACED BY [facility] Administration Aspirin 81 mg 06/18/21 10:45 06/21/21 07:53 Aspirin 81 Mg Chewable Tablet PO 81 mg DAILY@0800 REPLACED BY [facility]
--- NOTE | 2021-06-21 12:58 | WPDINTPN ---
Progress Note: A&P Assessment and Plan (1) Cardiac arrest: Code(s): I46.9 - Cardiac arrest, cause unspecified Status: Acute Assessment and Plan: patient had a cardiac arrest at home of unclear etiology, according the records initially was in asystole followed by V-tach, defibrillation, VFib, shock and ACLS protocol. ROSC was obtained, According to medical records EMS arrived at 3:22 a.m. and ROSC was achieved at 3:41 a.m.. - lactic acid and metabolic acidosis has resolved. electrolytes are within normal limits. - possible causes could be drug induced, PE, seizures. - drug screen was positive for opiates and cannabinoids - Seizure activity post Cardiac arrest likely related to anoxic injury. discontinue Keppra and started on valproic acid IV along with Ativan IV p.r.n. - appreciate cardiology evaluation recommendation - echocardiogram showed EF of 65-70%. Severe concentric increased left ventricular wall thickness. Grade 1 diastolic dysfunction. Mild pulmonary hypertension with RVSP of 38 mmHg. - Off sedation patient opens eyes, follows simple commands in bilateral upper extremity and right lower extremity, still somnolent (2) Seizure: Code(s): R56.9 - Unspecified convulsions Status: Acute Assessment and Plan: post cardiac arrest seizure activity requiring Ativan . Could be related to anoxic injury - appreciate Neurology evaluation, discontinue Keppra and started on IV valproic acid - p.r.n. Ativan. (3) Acute respiratory failure: Code(s): J96.00 - Acute respiratory failure, unspecified whether with hypoxia or hypercapnia Status: Acute Assessment and Plan: acute respiratory failure with metabolic acidosis - intubated on 2020 - chest x-ray and ABGs reviewed, ventilator adjusted. Patient placed on 40% FiO2 and peep of 5, tidal volume is increased to 500 mL - keep off sedation - continue cefepime and vancomycin as patient has worsening leukocytosis (4) Lactic acidosis: Code(s): E87.2 - Acidosis Status: Acute Assessment and Plan: RESOLVED likely related to cardiac arrest -repeat lactic acid has normalized - patient received 2 L of IV fluid bolus in the ER (5) Elevated LFTs: Code(s): R79.89 - Other specified abnormal findings of blood chemistry Status: Acute Assessment and Plan: elevated LFTs likely related to cardiac arrest - LFTs trending down gradually (6) DVT prophylaxis: Code(s): Z29.9 - Encounter for prophylactic measures, unspecified Status: Acute Assessment and Plan: patient on SCDs - there is some mention of blood in the stools when he came to the ED on on 06/17. Will hold chemoprophylaxis for now (7) ESRD (end stage renal disease) on dialysis: Code(s): N18.6 - End stage renal disease; Z99.2 - Dependence on renal dialysis Status: Acute Assessment and Plan: patient has history of end-stage renal disease on peritoneal dialysis. - Metabolic acidosis likely related to lactic acidosis due to cardiac arrest - nephrology following the patient - PD per clinical secretary (8) Gastroenteritis: Code(s): K52.9 - Noninfective gastroenteritis and colitis, unspecified Status: Acute Assessment and Plan: Pt with Nausea, vomiting and diarrhea, - stool for C diff is negative - stool cultures pending - KUB during this admission showing normal bowel gas pattern the upper abdomen -FMS placed due to multiple episodes of diarrhea - CT scan Abd and pelvis: 1. Small volume of ascites with free intraperitoneal gas in the upper abdomen. Findings could be related to peritoneal dialysis as no definite source of free air is identified. 2. Mild left hydronephrosis of unclear etiology. 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
--- NOTE | 2021-06-21 13:33 | PCNFU ---
Nutrition Follow-Up Complete: Inadequate oral food intake related to ventilation secondary to s/p cardiac arrest as evidence by NPO diet order. Meet estimated nutritional needs. Patient is meeting goal. Will continue to meet goal. Pt current nutrition is Tube Feedings. Patient is receiving Nepro @ 30 mL/hr providing 1,738 kcals, 99 gm protein, and 659 mL free fluid. Prostat being received TID providing 100 kcals and 15 gm protein per flush. Estimations calculated at 22 hrs/day. Last recorded weight is 87.2 kg. Bowel Motility: Fecal containment device in use. Labs Reviewed: Hgb 9.9, Hct 31.0, Alb 3.0, Na 139, K 3.8, GFR 5, BUN 63, Cr 14.6, Glu 136 Meds Noted: Tylenol, Norvasc, Aspirin, Phoslo, Coreg, Retacrit, Hydralazine Hcl, Ativan, Cozaar, Loniten, Protonix, Diprivan, Central line flush, Vancomycin. Additional Notes: Patient is currently on 2.6 mls/hr of Propofol. Patient is at goal rate of 30 mL/hr. Highest residual 125 mL over the last 24 hrs. No skin breakdown. Phosphorus level at 9.3. Will continue to monitor weight, tube feed tolerance and bowel motility. Follow up daily in ICU rounds. Will follow up/reassess every Thursday and Thursday.
--- NOTE | 2021-06-21 14:16 | PCNSR ---
On 06/21/21, the student, [Celestina Diaz], provided care and [facility]. I have reviewed the student's documentation and agree with the findings.
[2021-06-21] MEDS: CALCIUM ACETATE 667 MG TABLET 1334 MG FEED TUBE (16:14)
--- NOTE | 2021-06-21 16:17 | PM.IMPN ---
Progress Note: A&P Assessment and Plan (1) Cardiac arrest: Code(s): I46.9 - Cardiac arrest, cause unspecified Status: Acute Assessment and Plan: on ventilator support patient had a cardiac arrest at home of unclear etiology, according the records initially was in asystole followed by V-tach, defibrillation, VFib, shock and ACLS protocol. ROSC was obtained, According to medical records EMS arrived at 3:22 a.m. and ROSC was achieved at 3:41 a.m.. - lactic acid and metabolic acidosis has resolved. electrolytes are within normal limits. - possible causes could be drug induced, PE, seizures. - drug screen was positive for opiates and cannabinoids - Seizure activity post Cardiac arrest likely related to anoxic injury. discontinue Keppra and started on valproic acid IV along with Ativan IV p.r.n. - appreciate cardiology evaluation recommendation - echocardiogram showed EF of 65-70%. Severe concentric increased left ventricular wall thickness. Grade 1 diastolic dysfunction. Mild pulmonary hypertension with RVSP of 38 mmHg. - Off sedation patient opens eyes, follows simple commands in bilateral upper extremity and right lower extremity, still somnolent (2) Seizure: Code(s): R56.9 - Unspecified convulsions Status: Acute Assessment and Plan: post cardiac arrest seizure activity requiring Ativan . Could be related to anoxic injury - appreciate Neurology evaluation, discontinue Keppra and started on IV valproic acid - p.r.n. Ativan. (3) Acute respiratory failure: Code(s): J96.00 - Acute respiratory failure, unspecified whether with hypoxia or hypercapnia Status: Acute Assessment and Plan: acute respiratory failure with metabolic acidosis - intubated on 2020 - chest x-ray and ABGs reviewed, ventilator adjusted. Patient placed on 40% FiO2 and peep of 5, tidal volume is increased to 500 mL - keep off sedation - continue cefepime and vancomycin as patient has worsening leukocytosis (4) Lactic acidosis: Code(s): E87.2 - Acidosis Status: Acute Assessment and Plan: RESOLVED likely related to cardiac arrest -repeat lactic acid has normalized - patient received 2 L of IV fluid bolus in the ER (5) Elevated LFTs: Code(s): R79.89 - Other specified abnormal findings of blood chemistry Status: Acute Assessment and Plan: continue to monitor elevated LFTs likely related to cardiac arrest - LFTs trending down gradually (6) DVT prophylaxis: Code(s): Z29.9 - Encounter for prophylactic measures, unspecified Status: Acute Assessment and Plan: patient on SCDs - there is some mention of blood in the stools when he came to the ED on on 06/17. Will hold chemoprophylaxis for now (7) ESRD (end stage renal disease) on dialysis: Code(s): N18.6 - End stage renal disease; Z99.2 - Dependence on renal dialysis Status: Acute Assessment and Plan: patient has history of end-stage renal disease on peritoneal dialysis. - Metabolic acidosis likely related to lactic acidosis due to cardiac arrest - nephrology following the patient - PD per xray tech (8) Gastroenteritis: Code(s): K52.9 - Noninfective gastroenteritis and colitis, unspecified Status: Acute Assessment and Plan: Pt with Nausea, vomiting and diarrhea, - stool for C diff is negative - stool cultures pending - KUB during this admission showing normal bowel gas pattern the upper abdomen -FMS placed due to multiple episodes of diarrhea - CT scan Abd and pelvis: 1. Small volume of ascites with free intraperitoneal gas in the upper abdomen. Findings could be related to peritoneal dialysis as no definite source of free air is identified. 2. Mild left hydronephrosis of unclear etiology. (9) Erythropoietin deficiency anemia: Code(s): D63.1 - Anemia in chronic kidney disease Status: Acute Assessment and
[2021-06-21] MEDS: EPOETIN ALFA-EPBX 10,000 UNITS/ML VIAL 10000 UNITS SUB-Q (16:30)
[2021-06-22] VITALS (25 sets, daily range): BP systolic 119–172; BP diastolic 68–103; PULSE 87–103; RESP 12–21; TEMP 36.7–37.4; O2SAT 94–100
[2021-06-22] MEDS: PROPOFOL IV EMULSION 100 ML 2.6 MG IV CONT (02:09)
[2021-06-22] MEDS: CENTRAL LINE FLUSH 10 ML IV PUSH ×3 (04:58→21:11)
[2021-06-22] MEDS: CALCIUM ACETATE 667 MG TABLET 1334 MG FEED TUBE ×3 (05:00→21:10)
[2021-06-22 05:45] LABS: Alveolar/Arterial O2 Gradient 114.7 mmHg; Base Excess ABG 2.1 mEq/l (+/-2.0); Carboxyhemoglobin 0.2 % THb (0-2.0); Fractional Inspired Oxygen 40 %; HCO3 ABG 26.3 mEq/l (22.0-26.0); Methemoglobin ABG 0.3 %THb (0-1.5); Oxygen Content ABG 13.3 %vol (16.0-22.0); Oxygen Saturation ABG 98.6 % (95.0-100.0); Oxyhemoglobin 96.6 % THb (90.0-100.0); PCO2 ABG 39.4 mmHg (35.0-45.0); PO2 ABG 125.2 mmHg (80.0-100.0); PO2 FiO2 Ratio Arterial Blood 3.13 %; Reduced Hemoglobin 2.9 %THb (0-5.0); Total Hemoglobin 9.6 g/dL (12.0-18.0); pH ABG 7.442 (7.350-7.450)
[2021-06-22 05:46] LABS: Device VENTILATOR; Modified Allen's Test Pass; Site Drawn RIGHT RADIAL
[2021-06-22 05:47] LABS: Arterial Blood Gas PEEP 5 cmH2O; Arterial Blood Gas Tidal Volume 500 ml; Arterial Blood Gas Vent Mode CMV; Arterial Blood Gas Ventilator rate 16 /MIN
[2021-06-22 06:04] LABS: Hematocrit 26.8 % (42.0-52.0); Hemoglobin 8.9 g/dL (14.0-18.0); Mean Corpuscular HGB Conc 33.2 g/dl (32-36); Mean Corpuscular Hemoglobin 27.4 pg (26-34); Mean Corpuscular Volume 82.5 fl (80-100); Mean Platelet Volume 9.4 fl (7.4-10.4); Platelet Count Result 207 k/mm3 (150-375); Red Blood Count 3.25 M/mm3 (4.6-6.20); Red Cell Distribution Width 14.6 % (11.5-14.5); White Blood Count 14.9 K/mm3 (4.5-10.0)
[2021-06-22 06:20] LABS: Alanine Aminotransferase 95 U/L (4-50); Albumin Level 2.9 g/dL (3.5-5.1); Alkaline Phosphatase 47 U/L (38-126); Anion Gap 15 mmol/L (8-16); Aspartate Amino Transferase 64 U/L (17-59); Bilirubin,Total 0.3 mg/dL (0.2-1.3); Blood Urea Nitrogen 76 mg/dL (9-20); Calcium 8.4 mg/dL (8.4-10.2); Carbon Dioxide 25 mmol/L (22-30); Chloride 98 mmol/L (98-107); Glucose 121 mg/dL (65-110); Magnesium 2.2 mg/dL (1.6-2.3); Phosphorus 9.9 mg/dL (2.5-4.5); Potassium 3.9 mmol/L (3.4-5.0); Sodium 138 mmol/L (137-145)
[2021-06-22 07:05] LABS: Estimated CRCL calculation 7 ml/min; Estimated Glomerular Filt Rate 4
--- NOTE | 2021-06-22 08:55 | PM.PNNEP ---
Progress Note: A&P Assessment and Plan (1) ESRD (end stage renal disease) on dialysis: Code(s): N18.6 - End stage renal disease; Z99.2 - Dependence on renal dialysis Status: Acute Assessment and Plan: the patient has end-stage renal disease. continue peritoneal dialysis. on a higher dose now. Fluid is clear. Flows are good. Creatinine did not rise as much today. Will continue this dose of dialysis. He was seen at 8:15 a.m. (2) Cardiac arrest: Code(s): I46.9 - Cardiac arrest, cause unspecified Status: Acute Assessment and Plan: The patient is intubated. Propofol is being stopped now to assess mental function. (3) Hypertension: Code(s): I10 - Essential (primary) hypertension Status: Acute Assessment and Plan: His blood pressure dropped yesterday. Now off all blood pressure meds. He may be dry. (4) Renal osteodystrophy: Code(s): N25.0 - Renal osteodystrophy Status: Acute Assessment and Plan: Check a phosphorus level tomorrow phosphorus very high and rising. He is getting Nepro. will add binders. (5) Erythropoietin deficiency anemia: Code(s): D63.1 - Anemia in chronic kidney disease Status: Acute Assessment and Plan: Hemoglobin below 10. Add EPO. (6) Gastroenteritis: Code(s): K52.9 - Noninfective gastroenteritis and colitis, unspecified Status: Acute Assessment and Plan: Treat symptomatically Subjective Date/time seen: 06/22/21 08:55 Interval history: patient is still on the ventilator. Off propofol. Eyes open and he looks around but does not follow commands much Exam Narrative: Exam Narrative: WDWN in NAD on the ventilator and sedated. skin no rash or subcu nodules head ncat lungs Mildly coarse cor reg no rub Or gallop abd BS+ nontender and soft ext no edema or cyanosis. Objective Data Vital Signs Vital Signs: Vital Signs - 24 hr 06/21/21 10:00 06/21/21 11:16 06/21/21 12:00 Temperature 37.6 C H 37.9 C H Pulse Rate 87 93 94 Respiratory Rate 18 17 Blood Pressure 111/56 L 130/81 Pulse Oximetry 94 97 93 06/21/21 13:59 06/21/21 14:00 06/21/21 16:00 Temperature 37.8 C H 37.7 C H Pulse Rate 100 100 100 Respiratory Rate 18 19 Blood Pressure 131/83 130/76 Pulse Oximetry 100 100 99 06/21/21 18:00 06/21/21 18:31 06/21/21 20:00 Temperature 37.7 C H 38.1 C H Pulse Rate 95 99 105 H Respiratory Rate 16 19 Blood Pressure 104/59 L 137/77 Pulse Oximetry 96 97 97 06/21/21 20:47 06/21/21 21:36 06/21/21 23:24 Temperature 38.1 C H Pulse Rate 104 H 113 H 109 H Respiratory Rate 19 Blood Pressure 131/79 Pulse Oximetry 97 96 99 06/22/21 00:00 06/22/21 02:00 06/22/21 02:09 Temperature 37.3 C 36.7 C Pulse Rate 98 99 103 H Respiratory Rate 21 H 16 16 Blood Pressure 119/68 166/103 H Pulse Oximetry 100 100 06/22/21 02:35 06/22/21 03:53 06/22/21 03:55 Temperature 37.4 C Pulse Rate 97 95 97 Respiratory Rate 16 16 Blood Pressure 127/69 Pulse Oximetry 100 100 06/22/21 04:00 06/22/21 05:50 06/22/21 06:00 Temperature 37.3 C Pulse Rate 102 H 97 101 H Respiratory Rate 18 Blood Pressure 149/84 H Pulse Oximetry 96 100 06/22/21 07:58 Temperature Pulse Rate 93 Respiratory Rate Blood Pressure Pulse Oximetry 100 Intake/Output Intake/Output: Intake & Output 06/19/21 06/20/21 06/21/21 06/22/21 23:59 23:59 23:59 23:59 Intake Total 2500 1816.2 1929 670 Output Total 1267 2062 260 500 Balance 1233 -245.8 1669 170 Meds/Results Medications: Active Medications Generic Name Dose Route Start Last Admin Trade Name Freq PRN Reason Stop Dose Admin Acetaminophen 650 mg 06/20/21 12:07 06/20/21 12:33 Acetaminophen Elixir 325 Mg/10.15 Ml Udc FEED TUBE 650 mg Q6H PRN Administration Mild Pain (1-3) or Fever Amlodipine Besylate 10 mg 06/18/21 09:10 06/20/21 08:08
--- NOTE | 2021-06-22 09:24 | WPDINTPN ---
Progress Note: A&P Assessment and Plan (1) Cardiac arrest: Code(s): I46.9 - Cardiac arrest, cause unspecified Status: Acute Assessment and Plan: patient had a cardiac arrest at home of unclear etiology, according the records initially was in asystole followed by V-tach, defibrillation, VFib, shock and ACLS protocol. ROSC was obtained, According to medical records EMS arrived at 3:22 a.m. and ROSC was achieved at 3:41 a.m.. - lactic acid and metabolic acidosis has resolved. electrolytes are within normal limits. - possible causes could be drug induced, PE, seizures. - drug screen was positive for opiates and cannabinoids - patient had some seizure activity post cardiac arrest which could be related to anoxic injury, patient on IV valproic acid. Some signs of decorticate posturing. noted by bedside RN - appreciate cardiology evaluation recommendation - echocardiogram showed EF of 65-70%. Severe concentric increased left ventricular wall thickness. Grade 1 diastolic dysfunction. Mild pulmonary hypertension with RVSP of 38 mmHg. - Off sedation patient opens eyes, follows simple commands in bilateral upper extremity and right lower extremity, still somnolent (2) Seizure: Code(s): R56.9 - Unspecified convulsions Status: Acute Assessment and Plan: post cardiac arrest seizure activity requiring Ativan . Could be related to anoxic injury - appreciate Neurology evaluation, Continue IV valproic acid - p.r.n. Ativan. - EEG was done on 06/21/2021: Abnormal record due to the presence of bihemispheric theta and delta activity without any paroxysmal discharge. These abnormalities are suggestive of underlying organic or metabolic encephalopathy or postictal state. clinical correlation recommended (3) Acute respiratory failure: Code(s): J96.00 - Acute respiratory failure, unspecified whether with hypoxia or hypercapnia Status: Acute Assessment and Plan: acute respiratory failure with metabolic acidosis - intubated on 2020 - chest x-ray and ABGs reviewed, ventilator adjusted. Patient placed on 40% FiO2 and peep of 5, tidal volume is increased to 500 mL - keep off sedation - continue cefepime and vancomycin (4) Lactic acidosis: Code(s): E87.2 - Acidosis Status: Acute Assessment and Plan: RESOLVED likely related to cardiac arrest -repeat lactic acid has normalized - patient received 2 L of IV fluid bolus in the ER (5) Elevated LFTs: Code(s): R79.89 - Other specified abnormal findings of blood chemistry Status: Acute Assessment and Plan: elevated LFTs likely related to cardiac arrest - LFTs trending down gradually (6) ESRD (end stage renal disease) on dialysis: Code(s): N18.6 - End stage renal disease; Z99.2 - Dependence on renal dialysis Status: Acute Assessment and Plan: patient has history of end-stage renal disease on peritoneal dialysis. - Metabolic acidosis likely related to lactic acidosis due to cardiac arrest - nephrology following the patient - PD per corpsman (7) Gastroenteritis: Code(s): K52.9 - Noninfective gastroenteritis and colitis, unspecified Status: Acute Assessment and Plan: Pt with Nausea, vomiting and diarrhea, - stool for C diff is negative - stool cultures pending - KUB during this admission showing normal bowel gas pattern the upper abdomen -FMS placed due to multiple episodes of diarrhea - CT scan Abd and pelvis: 1. Small volume of ascites with free intraperitoneal gas in the upper abdomen. Findings could be related to peritoneal dialysis as no definite source of free air is identified. 2. Mild left hydronephrosis of unclear etiology. (8) Erythropoietin deficiency anemia: Code(s): D63.1 - Anemia in chronic kidney disease Status: Acute Assessment and Plan: h/o Anemia, HB 8.9 this morning, could be dilutional Will monitor (9
[2021-06-22] MEDS: ASPIRIN 81 MG CHEWABLE TABLET PO (09:29)
[2021-06-22] MEDS: MINERAL OIL/WHITE PETROLATUM OINTMENT 1 APPLIC EACH EYE ×2 (09:29→21:11)
[2021-06-22] MEDS: CEFEPIME 0.5 GM in DEXTROSE 5% IN WATER 50 ML IVPB (09:29)
[2021-06-22] MEDS: PANTOPRAZOLE SODIUM IV 40 MG VIAL IV PUSH ×2 (09:30→21:11)
[2021-06-22] MEDS: carvediloL 25 MG TABLET FEED TUBE (10:47)
[2021-06-22] MEDS: amLODIPine BESYLATE 5 MG TABLET 10 MG FEED TUBE (10:47)
[2021-06-22] MEDS: hydrALAZINE HCL 20 MG/ML VIAL IV PUSH ×2 (14:18→18:23)
--- NOTE | 2021-06-22 14:27 | PM.IMPN ---
Progress Note: A&P Assessment and Plan (1) Cardiac arrest: Code(s): I46.9 - Cardiac arrest, cause unspecified Status: Acute Assessment and Plan: patient had a cardiac arrest at home of unclear etiology, according the records initially was in asystole followed by V-tach, defibrillation, VFib, shock and ACLS protocol. ROSC was obtained, According to medical records EMS arrived at 3:22 a.m. and ROSC was achieved at 3:41 a.m.. - lactic acid and metabolic acidosis has resolved. electrolytes are within normal limits. - possible causes could be drug induced, PE, seizures. - drug screen was positive for opiates and cannabinoids - patient had some seizure activity post cardiac arrest which could be related to anoxic injury, patient on IV valproic acid. Some signs of decorticate posturing. noted by bedside RN - appreciate cardiology evaluation recommendation - echocardiogram showed EF of 65-70%. Severe concentric increased left ventricular wall thickness. Grade 1 diastolic dysfunction. Mild pulmonary hypertension with RVSP of 38 mmHg. (2) Seizure: Code(s): R56.9 - Unspecified convulsions Status: Acute Assessment and Plan: post cardiac arrest seizure activity requiring Ativan . Could be related to anoxic injury - appreciate Neurology evaluation, Continue IV valproic acid - p.r.n. Ativan. - EEG was done on 06/21/2021: Abnormal record due to the presence of bihemispheric theta and delta activity without any paroxysmal discharge. These abnormalities are suggestive of underlying organic or metabolic encephalopathy or postictal state. clinical correlation recommended (3) Acute respiratory failure: Code(s): J96.00 - Acute respiratory failure, unspecified whether with hypoxia or hypercapnia Status: Acute Assessment and Plan: acute respiratory failure with metabolic acidosis - intubated on 2020 - chest x-ray and ABGs reviewed, ventilator adjusted. Patient placed on 40% FiO2 and peep of 5, tidal volume is increased to 500 mL - keep off sedation - continue cefepime and vancomycin (4) Lactic acidosis: Code(s): E87.2 - Acidosis Status: Acute Assessment and Plan: RESOLVED likely related to cardiac arrest -repeat lactic acid has normalized - patient received 2 L of IV fluid bolus in the ER (5) Elevated LFTs: Code(s): R79.89 - Other specified abnormal findings of blood chemistry Status: Acute Assessment and Plan: elevated LFTs likely related to cardiac arrest - LFTs trending down gradually (6) ESRD (end stage renal disease) on dialysis: Code(s): N18.6 - End stage renal disease; Z99.2 - Dependence on renal dialysis Status: Acute Assessment and Plan: patient has history of end-stage renal disease on peritoneal dialysis. - Metabolic acidosis likely related to lactic acidosis due to cardiac arrest - nephrology following the patient - PD per laborer [employer] (7) Gastroenteritis: Code(s): K52.9 - Noninfective gastroenteritis and colitis, unspecified Status: Acute Assessment and Plan: Pt with Nausea, vomiting and diarrhea, - stool for C diff is negative - stool cultures pending - KUB during this admission showing normal bowel gas pattern the upper abdomen -FMS placed due to multiple episodes of diarrhea - CT scan Abd and pelvis: 1. Small volume of ascites with free intraperitoneal gas in the upper abdomen. Findings could be related to peritoneal dialysis as no definite source of free air is identified. 2. Mild left hydronephrosis of unclear etiology. (8) Erythropoietin deficiency anemia: Code(s): D63.1 - Anemia in chronic kidney disease Status: Acute Assessment and Plan: h/o Anemia, HB 8.9 this morning, could be dilutional Will monitor (9) Hypertension: Code(s): I10 - Essential (primary) hypertension Status: Acute Assessment and Plan: on adm
[2021-06-22] MEDS: carvediloL 25 MG TABLET PO (17:51)
[2021-06-22] MEDS: PROPOFOL IV EMULSION 100 ML 2.66 MG IV CONT (21:10)
[2021-06-23] VITALS (22 sets, daily range): BP systolic 144–174; BP diastolic 76–104; PULSE 81–100; RESP 9–21; TEMP 36.4–37.2; O2SAT 95–97
[2021-06-23 00:37] LABS: Glucose Point of Care 107 mg/dl (65-105)
[2021-06-23 03:40] LABS: Base Excess ABG 3.3 mEq/l (+/-2.0); HCO3 ABG 27.3 mEq/l (22.0-26.0); Oxygen Saturation ABG 97.8 % (95.0-100.0); PCO2 ABG 39.2 mmHg (35.0-45.0); PO2 ABG 99.6 mmHg (80.0-100.0); Total Hemoglobin 10.4 g/dL (12.0-18.0)
[2021-06-23 03:41] LABS: Alveolar/Arterial O2 Gradient 140.5 mmHg; Oxygen Content ABG 14.1 %vol (16.0-22.0)
[2021-06-23 03:42] LABS: Carboxyhemoglobin 0.3 % THb (0-2.0); Methemoglobin ABG 0.2 %THb (0-1.5); Oxyhemoglobin 95.6 % THb (90.0-100.0); Reduced Hemoglobin 3.9 %THb (0-5.0)
[2021-06-23 03:43] LABS: PO2 FiO2 Ratio Arterial Blood 2.49 %
[2021-06-23 03:44] LABS: Device VENTILATOR; Modified Allen's Test Pass; Site Drawn RIGHT RADIAL
[2021-06-23] MEDS: CALCIUM ACETATE 667 MG TABLET 1334 MG FEED TUBE (04:17)
[2021-06-23 05:20] LABS: Hematocrit 28.4 % (42.0-52.0); Hemoglobin 9.4 g/dL (14.0-18.0); Mean Corpuscular HGB Conc 33.1 g/dl (32-36); Mean Corpuscular Hemoglobin 27.4 pg (26-34); Mean Corpuscular Volume 82.8 fl (80-100); Mean Platelet Volume 10.9 fl (7.4-10.4); Platelet Count Result 240 k/mm3 (150-375); Red Blood Count 3.43 M/mm3 (4.6-6.20); Red Cell Distribution Width 14.8 % (11.5-14.5); White Blood Count 13.7 K/mm3 (4.5-10.0)
[2021-06-23 05:36] LABS: Alanine Aminotransferase 92 U/L (4-50); Alkaline Phosphatase 54 U/L (38-126); Anion Gap 17 mmol/L (8-16); Aspartate Amino Transferase 72 U/L (17-59); Bilirubin,Total 0.3 mg/dL (0.2-1.3); Blood Urea Nitrogen 93 mg/dL (9-20); Calcium 8.9 mg/dL (8.4-10.2); Carbon Dioxide 25 mmol/L (22-30); Chloride 94 mmol/L (98-107); Glucose 107 mg/dL (65-110); Magnesium 2.3 mg/dL (1.6-2.3); Phosphorus 11.3 mg/dL (2.5-4.5); Potassium 3.8 mmol/L (3.4-5.0); Sodium 136 mmol/L (137-145)
[2021-06-23 05:41] LABS: Estimated CRCL calculation 7 ml/min; Estimated Glomerular Filt Rate 5
[2021-06-23] MEDS: CENTRAL LINE FLUSH 10 ML IV PUSH ×3 (05:46→23:43)
--- NOTE | 2021-06-23 08:04 | PM.PNNEP ---
Progress Note: A&P Assessment and Plan (1) ESRD (end stage renal disease) on dialysis: Code(s): N18.6 - End stage renal disease; Z99.2 - Dependence on renal dialysis Status: Acute Assessment and Plan: the patient has end-stage renal disease. continue peritoneal dialysis. labs are looking better. Potassium is doing well. Creatinine is coming down. Volume status looks okay. Will use stronger bags tonight. Discussed with the PD nurse (2) Cardiac arrest: Code(s): I46.9 - Cardiac arrest, cause unspecified Status: Acute Assessment and Plan: The patient is intubated. back on propofol (3) Hypertension: Code(s): I10 - Essential (primary) hypertension Status: Acute Assessment and Plan: His blood pressure is up again. Back on his BP meds. (4) Renal osteodystrophy: Code(s): N25.0 - Renal osteodystrophy Status: Acute Assessment and Plan: Phosphorus level is elevated. Propofol is suspended in a phospholipid in so can contribute to phosphorus intake. He is getting Nepro. He is on binders. We will increase the dose. (5) Erythropoietin deficiency anemia: Code(s): D63.1 - Anemia in chronic kidney disease Status: Acute Assessment and Plan: Hemoglobin below 10. Add EPO. (6) Gastroenteritis: Code(s): K52.9 - Noninfective gastroenteritis and colitis, unspecified Status: Acute Assessment and Plan: Treat symptomatically Subjective Date/time seen: 06/23/21 08:04 Interval history: patient is still on the ventilator. Back on the Propofol. When off the propofol he looks around but no interaction or following of commands the patient reserve some fluid with the PD. It is unclear if he had incomplete drains because he was agitated last night. The dialysis nurse said that the she said that treatment was complete. Will use green bags tonight try to get a little fluid off Exam Narrative: Exam Narrative: WDWN in NAD on the ventilator and sedated. skin no rash or subcu nodules head ncat lungs Mildly coarse cor reg no rub Or gallop abd BS+ nontender and soft ext no edema or cyanosis. Objective Data Vital Signs Vital Signs: Vital Signs - 24 hr 06/22/21 10:00 06/22/21 10:34 06/22/21 10:47 Temperature Pulse Rate 88 88 87 Pulse Rate [Apical] Respiratory Rate 14 Blood Pressure 151/89 H Pulse Oximetry 100 100 06/22/21 11:46 06/22/21 12:00 06/22/21 13:55 Temperature 37.4 C Pulse Rate 95 92 Pulse Rate [Apical] Respiratory Rate 18 Blood Pressure 153/103 H Pulse Oximetry 100 100 94 06/22/21 14:00 06/22/21 16:00 06/22/21 16:47 Temperature 37.1 C Pulse Rate 92 99 101 H Pulse Rate [Apical] Respiratory Rate 14 12 Blood Pressure 172/98 H 163/99 H Pulse Oximetry 100 98 99 06/22/21 17:51 06/22/21 18:00 06/22/21 18:03 Temperature 37.1 C Pulse Rate 102 H 101 H 101 H Pulse Rate [Apical] Respiratory Rate 14 12 Blood Pressure 163/90 H 163/99 H Pulse Oximetry 97 98 06/22/21 20:00 06/22/21 22:00 06/23/21 00:00 Temperature 37.4 C 37.3 C 37.2 C Pulse Rate 99 98 100 Pulse Rate [Apical] Respiratory Rate 14 19 21 H Blood Pressure 149/79 H 139/80 159/96 H Pulse Oximetry 94 97 96 06/23/21 02:00 06/23/21 04:00 06/23/21 04:01 Temperature 37.0 C 37.1 C Pulse Rate 92 89 90 Pulse Rate [Apical] Respiratory Rate 16 9 L Blood Pressure 146/88 H 144/78 H Pulse Oximetry 97 97 06/23/21 05:10 06/23/21 06:00 06/23/21 07:32 Temperature 37.1 C Pulse Rate 84 89 Pulse Rate [Apical] 89 Respiratory Rate 16 16 Blood Pressure 174/104 H Pulse Oximetry 96 96 Intake/Output Intake/Output: Intake & Output 06/20/21 06/21/21 06/22/21 06/23/21 23:59 23:59 23:59 23:59 Intake Total 1816.2 1929 2040 769 Output Total 2062 260 1250 -896 Balance -245.8 5383 487 7411 Meds/Results Medication
[2021-06-23] MEDS: amLODIPine BESYLATE 5 MG TABLET 10 MG PO (08:58)
[2021-06-23] MEDS: LOSARTAN POTASSIUM 100 MG TABLET PO (08:58)
[2021-06-23] MEDS: PANTOPRAZOLE SODIUM IV 40 MG VIAL IV PUSH ×2 (08:58→19:44)
[2021-06-23] MEDS: carvediloL 25 MG TABLET PO ×2 (08:58→17:27)
[2021-06-23] MEDS: ASPIRIN 81 MG CHEWABLE TABLET PO (08:58)
[2021-06-23] MEDS: CEFEPIME 0.5 GM in DEXTROSE 5% IN WATER 50 ML IVPB (08:58)
[2021-06-23] MEDS: MINERAL OIL/WHITE PETROLATUM OINTMENT 1 APPLIC EACH EYE ×2 (08:59→19:44)
[2021-06-23 10:16] LABS: Arterial Blood Gas PEEP 5 cmH2O; Arterial Blood Gas Vent Mode ASV
[2021-06-23 10:17] LABS: Fractional Inspired Oxygen 40 %
[2021-06-23] MEDS: CALCIUM ACETATE 667 MG TABLET 2001 MG FEED TUBE ×2 (12:02→19:44)
[2021-06-23] MEDS: hydrALAZINE HCL 20 MG/ML VIAL IV PUSH (14:31)
--- NOTE | 2021-06-23 15:14 | WPDINTPN ---
Progress Note: A&P Assessment and Plan (1) Cardiac arrest: Code(s): I46.9 - Cardiac arrest, cause unspecified Status: Acute Assessment and Plan: patient had a cardiac arrest at home of unclear etiology, according the records initially was in asystole followed by V-tach, defibrillation, VFib, shock and ACLS protocol. ROSC was obtained, According to medical records EMS arrived at 3:22 a.m. and ROSC was achieved at 3:41 a.m.. - lactic acid and metabolic acidosis has resolved. electrolytes are within normal limits. - possible causes could be drug induced, PE, seizures. - drug screen was positive for opiates and cannabinoids - patient had some seizure activity post cardiac arrest which could be related to anoxic injury, patient on IV valproic acid. Some signs of decorticate posturing. noted by bedside RN - appreciate cardiology evaluation recommendation - echocardiogram showed EF of 65-70%. Severe concentric increased left ventricular wall thickness. Grade 1 diastolic dysfunction. Mild pulmonary hypertension with RVSP of 38 mmHg. - Off sedation patient opens eyes, rate in the follows commands (2) Seizure: Code(s): R56.9 - Unspecified convulsions Status: Acute Assessment and Plan: post cardiac arrest seizure activity requiring Ativan . Could be related to anoxic injury - appreciate Neurology evaluation, Continue IV valproic acid - p.r.n. Ativan. - EEG was done on 06/21/2021: Abnormal record due to the presence of bihemispheric theta and delta activity without any paroxysmal discharge. These abnormalities are suggestive of underlying organic or metabolic encephalopathy or postictal state. clinical correlation recommended (3) Acute respiratory failure: Code(s): J96.00 - Acute respiratory failure, unspecified whether with hypoxia or hypercapnia Status: Acute Assessment and Plan: acute respiratory failure with metabolic acidosis - intubated on 2020 - chest x-ray and ABGs reviewed, ventilator adjusted. Patient placed on 40% FiO2 and peep of 5, tidal volume is increased to 500 mL - keep off sedation - continue cefepime and vancomycin (4) Lactic acidosis: Code(s): E87.2 - Acidosis Status: Acute Assessment and Plan: RESOLVED likely related to cardiac arrest -repeat lactic acid has normalized - patient received 2 L of IV fluid bolus in the ER (5) Elevated LFTs: Code(s): R79.89 - Other specified abnormal findings of blood chemistry Status: Acute Assessment and Plan: elevated LFTs likely related to cardiac arrest - LFTs trending down gradually (6) ESRD (end stage renal disease) on dialysis: Code(s): N18.6 - End stage renal disease; Z99.2 - Dependence on renal dialysis Status: Acute Assessment and Plan: patient has history of end-stage renal disease on peritoneal dialysis. - Metabolic acidosis likely related to lactic acidosis due to cardiac arrest - nephrology following the patient - PD per prism inspector (7) Gastroenteritis: Code(s): K52.9 - Noninfective gastroenteritis and colitis, unspecified Status: Acute Assessment and Plan: Pt with Nausea, vomiting and diarrhea, - stool for C diff is negative - stool cultures negative - KUB during this admission showing normal bowel gas pattern the upper abdomen -FMS placed due to multiple episodes of diarrhea - CT scan Abd and pelvis: 1. Small volume of ascites with free intraperitoneal gas in the upper abdomen. Findings could be related to peritoneal dialysis as no definite source of free air is identified. 2. Mild left hydronephrosis of unclear etiology. (8) Erythropoietin deficiency anemia: Code(s): D63.1 - Anemia in chronic kidney disease Status: Acute Assessment and Plan: h/o Anemia, HB 8.9 this morning, could be dilutional Will monitor (9) Hypertension: Code(s): I10 - Essential (primary) hyper
--- NOTE | 2021-06-23 15:59 | PM.IMHP ---
H&P: HPI History of Present Illness Date/Time: 06/23/21 15:59 Review of Systems Review of Systems: ROS unobtainable: Yes unobtainable due to endotracheal tube and unobtainable due to mental status PMFSH Past Medical History Medical History Cardiac arrest Erythropoietin deficiency anemia ESRD (end stage renal disease) on dialysis Gastroenteritis HTN (hypertension) Hypertension Renal osteodystrophy Family History Family History Mother Hypertension Social History Social History Social History: Patient smokes half a pack a day and has smoked for 15 years up to a pack a no alcohol use. Smokes marijuana for appetite stimulant but no other drug use. Lives at home with his significant other, his mother and his maternal grandmother. his significant other is his caregiver. Full code is listed. Smoking packs per day: 1 Smoking cigarettes per day: 20.0 Smoking status: Unknown if ever smoked Tobacco type: cigarettes Alcohol intake: unknown Substance use: current Substance use type: marijuana Last use: smokes marijuana daily Gender identity (if verbalized by the patient): Male Spiritual care concerns: No Meds Home Medications and Allergies Home Medications Medication Instructions Recorded Confirmed Type amlodipine 10 mg PO DAILY 06/17/21 06/18/21 History carvedilol 25 mg PO BID 06/17/21 06/18/21 History clonidine 0.3 mg TRANSDERMAL DIRECTED 06/17/21 06/18/21 History famotidine 20 mg PO DAILY 06/17/21 06/18/21 History gabapentin 100 mg PO HS 06/17/21 06/18/21 History minoxidil 15 mg PO BID 06/17/21 06/18/21 History spironolactone 50 mg PO DAILY 06/17/21 06/18/21 History losartan 100 mg PO DAILY 06/18/21 06/18/21 History Allergies Allergy/AdvReac Type Severity Reaction Status Date / Time No Known Allergies Allergy Verified 06/18/21 08:36 Vital Signs Vital Signs - 24 hr 06/22/21 16:00 06/22/21 16:47 06/22/21 17:51 Temperature 98.8 F Pulse Rate 99 101 H 102 H Pulse Rate [Apical] Respiratory Rate 12 Blood Pressure 163/99 H Pulse Oximetry 98 99 06/22/21 18:00 06/22/21 18:03 06/22/21 20:00 Temperature 98.8 F 99.3 F Pulse Rate 101 H 101 H 99 Pulse Rate [Apical] Respiratory Rate 14 12 14 Blood Pressure 163/90 H 163/99 H 149/79 H Pulse Oximetry 97 98 94 06/22/21 22:00 06/23/21 00:00 06/23/21 02:00 Temperature 99.1 F 98.9 F 98.6 F Pulse Rate 98 100 92 Pulse Rate [Apical] Respiratory Rate 19 21 H 16 Blood Pressure 139/80 159/96 H 146/88 H Pulse Oximetry 97 96 97 06/23/21 04:00 06/23/21 04:01 06/23/21 05:10 Temperature 98.7 F Pulse Rate 89 90 84 Pulse Rate [Apical] Respiratory Rate 9 L Blood Pressure 144/78 H Pulse Oximetry 97 96 06/23/21 06:00 06/23/21 07:32 06/23/21 08:00 Temperature 98.7 F 98.1 F Pulse Rate 89 82 Pulse Rate [Apical] 89 Respiratory Rate 16 16 16 Blood Pressure 174/104 H 158/94 H Pulse Oximetry 96 95 06/23/21 08:17 06/23/21 08:58 06/23/21 10:00 Temperature Pulse Rate 86 93 91 Pulse Rate [Apical] Respiratory Rate 18 Blood Pressure 156/92 H Pulse Oximetry 96 95 06/23/21 10:42 06/23/21 12:00 06/23/21 14:00 Temperature 97.6 F Pulse Rate 85 85 88 Pulse Rate [Apical] Respiratory Rate 20 18 Blood Pressure 160/94 H 165/97 H Pulse Oximetry 95 95 96 06/23/21 14:19 Temperature Pulse Rate 88 Pulse Rate [Apical] Respiratory Rate Blood Pressure Pulse Oximetry 96 Exam Const: General: comfortable and no acute distress HENMT: Other: ETT in place Eyes: Sclera: sclerae normal Neck: Neck: supple Thyroid: thyroid normal Lymphatic: lymphadenopathy not noted Resp: Effort & Inspection: normal respiratory effort Auscultation: clear to auscultation bilaterally and diminished lung sounds Cardio: Ra
--- NOTE | 2021-06-23 16:05 | PM.IMPN ---
Progress Note: A&P Assessment and Plan (1) Cardiac arrest: Code(s): I46.9 - Cardiac arrest, cause unspecified Status: Acute Assessment and Plan: stable patient had a cardiac arrest at home of unclear etiology, according the records initially was in asystole followed by V-tach, defibrillation, VFib, shock and ACLS protocol. ROSC was obtained, According to medical records EMS arrived at 3:22 a.m. and ROSC was achieved at 3:41 a.m.. - lactic acid and metabolic acidosis has resolved. electrolytes are within normal limits. - possible causes could be drug induced, PE, seizures. - drug screen was positive for opiates and cannabinoids - patient had some seizure activity post cardiac arrest which could be related to anoxic injury, patient on IV valproic acid. Some signs of decorticate posturing. noted by bedside RN - appreciate cardiology evaluation recommendation - echocardiogram showed EF of 65-70%. Severe concentric increased left ventricular wall thickness. Grade 1 diastolic dysfunction. Mild pulmonary hypertension with RVSP of 38 mmHg. - Off sedation patient opens eyes, rate in the follows commands (2) Seizure: Code(s): R56.9 - Unspecified convulsions Status: Acute Assessment and Plan: stable post cardiac arrest seizure activity requiring Ativan . Could be related to anoxic injury - appreciate Neurology evaluation, Continue IV valproic acid - p.r.n. Ativan. - EEG was done on 06/21/2021: Abnormal record due to the presence of bihemispheric theta and delta activity without any paroxysmal discharge. These abnormalities are suggestive of underlying organic or metabolic encephalopathy or postictal state. clinical correlation recommended (3) Acute respiratory failure: Code(s): J96.00 - Acute respiratory failure, unspecified whether with hypoxia or hypercapnia Status: Acute Assessment and Plan: ventilator management as per Critical Care acute respiratory failure with metabolic acidosis - intubated on 2020 - chest x-ray and ABGs reviewed, ventilator adjusted. Patient placed on 40% FiO2 and peep of 5, tidal volume is increased to 500 mL - keep off sedation - continue cefepime and vancomycin (4) Lactic acidosis: Code(s): E87.2 - Acidosis Status: Acute Assessment and Plan: RESOLVED likely related to cardiac arrest -repeat lactic acid has normalized - patient received 2 L of IV fluid bolus in the ER (5) Elevated LFTs: Code(s): R79.89 - Other specified abnormal findings of blood chemistry Status: Acute Assessment and Plan: elevated LFTs likely related to cardiac arrest - LFTs trending down gradually (6) ESRD (end stage renal disease) on dialysis: Code(s): N18.6 - End stage renal disease; Z99.2 - Dependence on renal dialysis Status: Acute Assessment and Plan: patient has history of end-stage renal disease on peritoneal dialysis. - Metabolic acidosis likely related to lactic acidosis due to cardiac arrest - nephrology following the patient - PD per plunger scoop operator (7) Gastroenteritis: Code(s): K52.9 - Noninfective gastroenteritis and colitis, unspecified Status: Acute Assessment and Plan: Pt with Nausea, vomiting and diarrhea, - stool for C diff is negative - stool cultures negative - KUB during this admission showing normal bowel gas pattern the upper abdomen -FMS placed due to multiple episodes of diarrhea - CT scan Abd and pelvis: 1. Small volume of ascites with free intraperitoneal gas in the upper abdomen. Findings could be related to peritoneal dialysis as no definite source of free air is identified. 2. Mild left hydronephrosis of unclear etiology. (8) Erythropoietin deficiency anemia: Code(s): D63.1 - Anemia in chronic kidney disease Status: Acute Assessment and Plan: h/o Anemia, HB 8.9 this morning, could be dilutional Will monitor (9)
[2021-06-23] MEDS: LORazepam INJ (*CRX) 2 MG/ML VIAL IV PUSH (20:13)
[2021-06-24] VITALS (29 sets, daily range): BP systolic 133–187; BP diastolic 75–119; PULSE 77–95; RESP 15–32; TEMP 36.3–36.7; O2SAT 94–98
[2021-06-24 00:14] LABS: Glucose Point of Care 109 mg/dl (65-105)
[2021-06-24] MEDS: hydrALAZINE HCL 20 MG/ML VIAL IV PUSH (05:33)
[2021-06-24 06:10] LABS: Estimated CRCL calculation 7 ml/min; Estimated Glomerular Filt Rate 5
[2021-06-24] MEDS: CENTRAL LINE FLUSH 10 ML IV PUSH ×3 (06:13→21:10)
[2021-06-24] MEDS: CALCIUM ACETATE 667 MG TABLET 2001 MG FEED TUBE ×3 (06:14→20:45)
[2021-06-24 06:27] LABS: Vancomycin Random 25.4 ug/mL (10-20)
--- NOTE | 2021-06-24 06:44 | P.CDI_ITS ---
CDI Query Clarification Request -06/18 Blood cultures X2 growing coag negative staphylococcus -06/17 Peritoneal fluid culture growing coag negative staphylococcus Please clarify if there is any clinical significance for above findings: * Sepsis * Bacteremia * Contaminate * Other * Unable to determine <Jyothi Richter RN - Last Filed: 06/24/21 06:46>
[2021-06-24] MEDS: LOSARTAN POTASSIUM 100 MG TABLET PO (08:15)
[2021-06-24] MEDS: amLODIPine BESYLATE 5 MG TABLET 10 MG PO (08:15)
[2021-06-24] MEDS: PANTOPRAZOLE SODIUM IV 40 MG VIAL IV PUSH ×2 (08:15→21:09)
[2021-06-24] MEDS: ASPIRIN 81 MG CHEWABLE TABLET PO (08:15)
[2021-06-24] MEDS: MINERAL OIL/WHITE PETROLATUM OINTMENT 1 APPLIC EACH EYE ×2 (08:15→21:09)
[2021-06-24] MEDS: minoxidiL 2.5 MG TABLET 15 MG PO ×2 (08:16→16:41)
[2021-06-24] MEDS: CEFEPIME 0.5 GM in DEXTROSE 5% IN WATER 50 ML IVPB (08:20)
[2021-06-24] MEDS: carvediloL 12.5 MG TABLET 37.5 MG PO ×2 (08:40→16:41)
--- NOTE | 2021-06-24 09:53 | WPDINTPN ---
Progress Note: A&P Assessment and Plan (1) Cardiac arrest: Code(s): I46.9 - Cardiac arrest, cause unspecified Status: Acute Assessment and Plan: patient had a cardiac arrest at home of unclear etiology, according the records initially was in asystole followed by V-tach, defibrillation, VFib, shock and ACLS protocol. ROSC was obtained, According to medical records EMS arrived at 3:22 a.m. and ROSC was achieved at 3:41 a.m.. - lactic acid and metabolic acidosis has resolved. electrolytes are within normal limits. - possible causes could be drug induced, PE, seizures. - drug screen was positive for opiates and cannabinoids - patient had seizure activity post cardiac arrest which could be related to anoxic injury, patient on IV valproic acid. - Appreciate neurology evaluation and recommendation - appreciate cardiology evaluation and recommendation - echocardiogram showed EF of 65-70%. Severe concentric increased left ventricular wall thickness. Grade 1 diastolic dysfunction. Mild pulmonary hypertension with RVSP of 38 mmHg. - Off sedation patient opens eyes, rate in the follows commands (2) Seizure: Code(s): R56.9 - Unspecified convulsions Status: Acute Assessment and Plan: post cardiac arrest seizure activity requiring Ativan . Could be related to anoxic injury - appreciate Neurology evaluation, Continue IV valproic acid - p.r.n. Ativan. - EEG was done on 06/21/2021: Abnormal record due to the presence of bihemispheric theta and delta activity without any paroxysmal discharge. These abnormalities are suggestive of underlying organic or metabolic encephalopathy or postictal state. clinical correlation recommended (3) Acute respiratory failure: Code(s): J96.00 - Acute respiratory failure, unspecified whether with hypoxia or hypercapnia Status: Acute Assessment and Plan: acute respiratory failure with metabolic acidosis - intubated on 2020 - chest x-ray and ABGs reviewed, ventilator adjusted. Patient placed on 40% FiO2 and peep of 5, tidal volume is increased to 500 mL - keep off sedation - continue cefepime and vancomycin -thick secretions, will add pulmozyme (4) Lactic acidosis: Code(s): E87.2 - Acidosis Status: Acute Assessment and Plan: RESOLVED likely related to cardiac arrest -repeat lactic acid has normalized - patient received 2 L of IV fluid bolus in the ER - blood cultures growing coag-negative staph 2/2 bottles, patient was febrile, with leukocytosis, will discontinue vancomycin #7 (5) Elevated LFTs: Code(s): R79.89 - Other specified abnormal findings of blood chemistry Status: Acute Assessment and Plan: elevated LFTs likely related to cardiac arrest - LFTs trending down gradually (6) ESRD (end stage renal disease) on dialysis: Code(s): N18.6 - End stage renal disease; Z99.2 - Dependence on renal dialysis Status: Acute Assessment and Plan: patient has history of end-stage renal disease on peritoneal dialysis. - Metabolic acidosis likely related to lactic acidosis due to cardiac arrest - nephrology following the patient - PD per script writer (7) Gastroenteritis: Code(s): K52.9 - Noninfective gastroenteritis and colitis, unspecified Status: Acute Assessment and Plan: Pt with Nausea, vomiting and diarrhea, - stool for C diff is negative - stool cultures negative - KUB during this admission showing normal bowel gas pattern the upper abdomen -FMS placed due to multiple episodes of diarrhea - CT scan Abd and pelvis: 1. Small volume of ascites with free intraperitoneal gas in the upper abdomen. Findings could be related to peritoneal dialysis as no definite source of free air is identified. 2. Mild left hydronephrosis of unclear etiology. (8) Erythropoietin deficiency anemia: Code(s): D63.1 - Anemia in chronic kidney disease Status: Acute
--- NOTE | 2021-06-24 10:58 | PCDIET ---
ICU Rounding Note: Patient tolerating Nepro at 30mL/hr goal rate with Pro-Stat TID. Discussed with MD recommendation to increase Nepro rate due to decreased administration of Propofol. Verbal orders for Nepro at 40mL/hr with Pro-Stat 1x daily and Banatrol TID obtained. Nepro at 40mL/hr x 22 hours/day with Pro-Stat 1x daily will provide 1684kcal and 86g protein daily. Banatrol providing additional 120kcal, 360mg potassium and 30mg phosphorus daily. Last recorded weight is 83.7kg which is down from last review. Patient had 1358mL removed with PD yesterday. Bowel Motility: FMS in place. Banatrol ordered to potentially bulk stools. Labs Reviewed: Hgb (9.4), Hct (28.4), Glu (109), Cr (14.40), Alb (3.0), PO4 (11.3) Meds Noted: Norvasc, Retacrit, Phoslo, Coreg, Apresoline, Cefepime, Cozaar, Protonix, Vancomycin, Valproate Sodium, Propofol (rate of 2.66mL/hr provides 70kcal per day) Additional Notes: No skin breakdown reported. Following daily in ICU rounds. Assessing/reassessing every Thursday/Thursday.
[2021-06-24] MEDS: DORNASE ALFA INH SOLN 1 MG/ML 2.5 ML AMP 2.5 MG INHALATION ×2 (11:21→19:54)
[2021-06-24] MEDS: EPOETIN ALFA-EPBX 10,000 UNITS/ML VIAL 10000 UNITS SUB-Q (12:27)
--- NOTE | 2021-06-24 14:00 | PM.PNNEP ---
Progress Note: A&P Assessment and Plan (1) ESRD (end stage renal disease) on dialysis: Code(s): N18.6 - End stage renal disease; Z99.2 - Dependence on renal dialysis Status: Acute Assessment and Plan: the patient has end-stage renal disease. continue peritoneal dialysis. with his muscle mass he probably will end up having a creatinine that is in the low teens. Volume status looks okay. (2) Cardiac arrest: Code(s): I46.9 - Cardiac arrest, cause unspecified Status: Acute Assessment and Plan: The patient is intubated. back on propofol (3) Hypertension: Code(s): I10 - Essential (primary) hypertension Status: Acute Assessment and Plan: His blood pressure is up and down he is on minoxidil, losartan, amlodipine, carvedilol. All right big doses. Will increase the minoxidil. (4) Renal osteodystrophy: Code(s): N25.0 - Renal osteodystrophy Status: Acute Assessment and Plan: Phosphorus level is elevated. Propofol is suspended in a phospholipid in so can contribute to phosphorus intake. He is getting Nepro. He is on binders. Check in a.m. (5) Erythropoietin deficiency anemia: Code(s): D63.1 - Anemia in chronic kidney disease Status: Acute Assessment and Plan: Hemoglobin below 10. on EPO check an a.m. (6) Gastroenteritis: Code(s): K52.9 - Noninfective gastroenteritis and colitis, unspecified Status: Acute Assessment and Plan: Treat symptomatically Subjective Date/time seen: 06/24/21 14:00 Interval history: patient is still on the ventilator. Intermittently follows some commands. He is on peritoneal dialysis and tolerating it well. He had 2.5% Dianeal last night. About 2L was removed. Will continue the same prescription tonight. He was seen at noon Exam Narrative: Exam Narrative: WDWN in NAD on the ventilator and sedated. skin no rash or subcu nodules head ncat lungs Mildly coarse cor reg no rub Or gallop abd BS+ nontender and soft ext no edema or cyanosis. Objective Data Vital Signs Vital Signs: Vital Signs - 24 hr 06/23/21 14:19 06/23/21 16:00 06/23/21 16:26 Temperature 36.6 C Pulse Rate 88 90 95 Respiratory Rate 20 Blood Pressure 150/81 H Pulse Oximetry 96 96 95 06/23/21 17:27 06/23/21 18:00 06/23/21 20:00 Temperature 36.8 C Pulse Rate 91 90 89 Respiratory Rate 20 21 H Blood Pressure 162/93 H 154/87 H Pulse Oximetry 97 96 06/23/21 20:20 06/23/21 22:00 06/24/21 00:00 Temperature 36.4 C Pulse Rate 81 82 90 Respiratory Rate 16 Blood Pressure 150/76 H Pulse Oximetry 96 97 06/24/21 00:01 06/24/21 02:00 06/24/21 04:00 Temperature 36.7 C Pulse Rate 90 95 85 Respiratory Rate 30 H 21 H Blood Pressure 167/92 H 166/92 H Pulse Oximetry 96 96 06/24/21 04:01 06/24/21 05:01 06/24/21 06:00 Temperature 36.6 C 36.7 C Pulse Rate 86 87 88 Respiratory Rate 19 15 Blood Pressure 181/104 H 174/107 H Pulse Oximetry 95 95 06/24/21 06:01 06/24/21 06:11 06/24/21 07:55 Temperature 36.7 C Pulse Rate 88 93 90 Respiratory Rate 17 Blood Pressure 168/95 H Pulse Oximetry 94 94 96 06/24/21 08:00 06/24/21 08:40 06/24/21 10:00 Temperature 36.6 C Pulse Rate 79 89 86 Respiratory Rate 29 H 23 H Blood Pressure 187/119 H 162/97 H Pulse Oximetry 96 95 06/24/21 10:44 06/24/21 11:22 06/24/21 11:28 Temperature Pulse Rate 85 88 88 Respiratory Rate 17 23 H Blood Pressure Pulse Oximetry 94 06/24/21 12:00 06/24/21 13:51 Temperature Pulse Rate 84 Respiratory Rate Blood Pressure Pulse Oximetry 97 95 Intake/Output Intake/Output: Intake & Output 06/21/21 06/22/21 06/23/21 06/24/21 23:59 23:59 23:59 23:59 Intake Total 1929 2040 1614 823 Output Total 260 1250 -233 550 Balance 2486 945 4748 273 Meds/Results Medications: Active Medications Gen
--- NOTE | 2021-06-24 15:15 | PM.IMPN ---
Progress Note: A&P Assessment and Plan (1) Cardiac arrest: Code(s): I46.9 - Cardiac arrest, cause unspecified Status: Acute Assessment and Plan: EMS called at 0314 and they arrived at 0322 and ROSC achieved at 0341. Etiology of the cardiac arrest is unclear but patient was in VFib arrest requiring 6 shocks and Epinephrine. No significant electrolyte abnormalities to explain this event. He does have metabolic acidosis but lactic 9.0 to suggest this might be related to the cardiac arrest and not the etiology. Malignant arrhythmias related to: Drug ingestion? AMI? PE? Seizure? UDS positive opiates, cannabinoids. Echo with EF 65-70% with Grade I DD. He did have another episode of VTach last night - at the time of the seizure? Continue telemetry monitoring. Continue aspirin. Appreciate neurology and cardiology evaluation. Apreciate underwriter input. (2) Seizure: Code(s): R56.9 - Unspecified convulsions Status: Acute Assessment and Plan: EMS called at 0314 and they arrived at 0322 and ROSC achieved at 0341. Patient now having seizures. Currently on VPA. CT brain showing numerous small regions of significantly decreased attenuation in the bilateral basal ganglia, shereen and bilateral occipital white matter. The differential diagnosis includes posterior reversible encephalopathy syndrome (PRES), subacute to chronic lacunar infarcts/premature chronic small vessel ischemic disease (especially if the patient has cardiovascular risk factors), demyelinating disease such as multiple sclerosis or acute disseminated encephalomyelitis (ADEM), drug abuse, vasculitis, or reactive astrocytosis (gliosis) secondary to other nonspecific etiology. EEG was done on 06/21 showing Abnormal record due to the presence of bihemispheric theta and delta activity without any paroxysmal discharge. These abnormalities are suggestive of underlying organic or metabolic encephalopathy or postictal state. clinical correlation recommended. Ativan available as needed. Continue seizure precautions. He is more awake but odd behavior. Appreciate Neurology evaluation. Continue IV valproic acid (3) Acute respiratory failure: Code(s): J96.00 - Acute respiratory failure, unspecified whether with hypoxia or hypercapnia Status: Acute Assessment and Plan: Acute respiratory failure with metabolic acidosis. ABG on admission 7.17/35/270 on MV. Related to prolonged down time. Stable on MV. Tolerating CPAP trial. Continue to wean off MV as he tolerates. Appreciate underwriter input. (4) Lactic acidosis: Code(s): E87.2 - Acidosis Status: Acute Assessment and Plan: [place] related to cardiac arrest. Patient received 2 L of IV fluid bolus in the ER. Repeat lactic acid has normalized. Blood cultures growing coag-negative staph 2/2 bottles, patient was febrile, with leukocytosis. Peritoneal fluid also positive for coag-negative staph. Currently on vancomycin. (5) Elevated LFTs: Code(s): R79.89 - Other specified abnormal findings of blood chemistry Status: Acute Assessment and Plan: Elevated LFTs likely related to cardiac arrest. LFTs trending down gradually (6) ESRD (end stage renal disease) on dialysis: Code(s): N18.6 - End stage renal disease; Z99.2 - Dependence on renal dialysis Status: Acute Assessment and Plan: Patient has history of end-stage renal disease on peritoneal dialysis. Metabolic acidosis likely related to lactic acidosis due to cardiac arrest. Nephrology following the patient. Continue PD per head boys golf coach (7) Gastroenteritis: Code(s): K52.9 - Noninfective gastroenteritis and colitis, unspecified Status: Acute Assessment and Plan: Pt with nausea, vomiting and diarrhea present on admission. Stool for C diff is negative and stool cultures negative. KUB during this admission showing normal bowel gas pattern the upper abdomen. FMS
[2021-06-25] VITALS (28 sets, daily range): BP systolic 77–188; BP diastolic 39–110; PULSE 78–97; RESP 12–24; TEMP 35.2–36.8; O2SAT 91–98
[2021-06-25] MEDS: LORazepam INJ (*CRX) 2 MG/ML VIAL IV PUSH (00:49)
[2021-06-25] MEDS: CALCIUM ACETATE 667 MG TABLET 2001 MG FEED TUBE ×3 (04:11→21:47)
[2021-06-25 04:40] LABS: Basophils Percent Auto 0.4 % (0.2-1.2); Eosinophils Percent Auto 0.2 % (0-4.4); Hematocrit 33.4 % (42.0-52.0); Hemoglobin 11.2 g/dL (14.0-18.0); Immature Granulocyte Absolute 0.42 K/mm3 (0.00-0.031); Immature Granulocyte Percent A 4.4 % (0-0.5); Lymphocytes Absolute Auto 0.37 K/mm3 (0.9-3.2); Lymphocytes Percent Auto 3.8 % (18.3-44.2); Mean Corpuscular HGB Conc 33.5 g/dl (32-36); Mean Corpuscular Volume 80.5 fl (80-100); Mean Platelet Volume 10.2 fl (7.4-10.4); Monocytes Absolute Auto 1.1 K/mm3 (0.1-0.6); Monocytes Percent Auto 11.6 % (2.6-8.5); Neutrophils Absolute Auto 7.7 K/mm3 (1.3-6.7); Neutrophils Percent Auto 79.6 % (45.5-73.1); Platelet Count Result 304 k/mm3 (150-375); Red Blood Count 4.15 M/mm3 (4.6-6.20); Red Cell Distribution Width 14.1 % (11.5-14.5); White Blood Count 9.6 K/mm3 (4.5-10.0)
[2021-06-25 04:55] LABS: Alveolar/Arterial O2 Gradient 87.6 mmHg; Base Excess ABG 1.3 mEq/l (+/-2.0); Carboxyhemoglobin 0.3 % THb (0-2.0); Device VENTILATOR; Fractional Inspired Oxygen 30 %; HCO3 ABG 24.9 mEq/l (22.0-26.0); Methemoglobin ABG 0.2 %THb (0-1.5); Modified Allen's Test Unable to perform; Oxygen Content ABG 16.6 %vol (16.0-22.0); Oxygen Saturation ABG 96.8 % (95.0-100.0); Oxyhemoglobin 94.7 % THb (90.0-100.0); PCO2 ABG 35.9 mmHg (35.0-45.0); PO2 ABG 84.1 mmHg (80.0-100.0); Reduced Hemoglobin 4.8 %THb (0-5.0); Site Drawn RIGHT RADIAL; Total Hemoglobin 12.4 g/dL (12.0-18.0); pH ABG 7.459 (7.350-7.450)
[2021-06-25 04:56] LABS: Arterial Blood Gas PEEP 5 cmH2O; Arterial Blood Gas Pressure Support 8 cmH2O; Arterial Blood Gas Vent Mode SPONTANEOUS
[2021-06-25 04:58] LABS: Alanine Aminotransferase 78 U/L (4-50); Albumin Level 3.2 g/dL (3.5-5.1); Alkaline Phosphatase 59 U/L (38-126); Anion Gap 21 mmol/L (8-16); Aspartate Amino Transferase 50 U/L (17-59); Bilirubin,Total 0.3 mg/dL (0.2-1.3); Calcium 9.3 mg/dL (8.4-10.2); Carbon Dioxide 27 mmol/L (22-30); Chloride 94 mmol/L (98-107); Estimated CRCL calculation 7 ml/min; Estimated Glomerular Filt Rate 5; Glucose 111 mg/dL (65-110); Magnesium 3.1 mg/dL (1.6-2.3); Phosphorus 11.3 mg/dL (2.5-4.5); Potassium 3.5 mmol/L (3.4-5.0); Sodium 142 mmol/L (137-145)
[2021-06-25] MEDS: CENTRAL LINE FLUSH 10 ML IV PUSH ×3 (05:31→21:48)
--- NOTE | 2021-06-25 05:59 | P.CDI_ITS ---
CDI Query Clarification Request -06/18 Blood cultures X2 growing coag negative staphylococcus -06/17 Peritoneal fluid culture growing coag negative staphylococcus Please clarify if there is any clinical significance for above findings: * Sepsis * Bacteremia * Contaminate * No clinical significance * Other * Unable to determine
--- NOTE | 2021-06-25 05:59 | WPDCDIQUERY2 ---
CDI Query Clarification Request -06/18 Blood cultures X2 growing coag negative staphylococcus -06/17 Peritoneal fluid culture growing coag negative staphylococcus Please clarify if there is any clinical significance for above findings: Sepsis Bacteremia Contaminate No clinical significance Other Unable to determine
[2021-06-25] MEDS: hydrALAZINE HCL 20 MG/ML VIAL IV PUSH (06:22)
[2021-06-25 06:48] LABS: Blood Urea Nitrogen 130 mg/dL (9-20)
[2021-06-25] MEDS: PROPOFOL IV EMULSION 100 ML 15.98 MG IV CONT (07:55)
[2021-06-25] MEDS: DORNASE ALFA INH SOLN 1 MG/ML 2.5 ML AMP 2.5 MG INHALATION ×2 (08:19→20:10)
[2021-06-25] MEDS: CEFEPIME 0.5 GM in DEXTROSE 5% IN WATER 50 ML IVPB (08:46)
[2021-06-25] MEDS: minoxidiL 2.5 MG TABLET 15 MG PO (08:48)
[2021-06-25] MEDS: PANTOPRAZOLE SODIUM IV 40 MG VIAL IV PUSH ×2 (08:49→21:47)
[2021-06-25] MEDS: carvediloL 12.5 MG TABLET 25 MG PO (08:50)
[2021-06-25] MEDS: ASPIRIN 81 MG CHEWABLE TABLET PO (08:50)
[2021-06-25] MEDS: LOSARTAN POTASSIUM 100 MG TABLET PO (08:51)
[2021-06-25] MEDS: MINERAL OIL/WHITE PETROLATUM OINTMENT 1 APPLIC EACH EYE ×2 (08:51→21:47)
--- NOTE | 2021-06-25 09:42 | WPDPROCEDUR ---
Procedures Intubation Intubation Date: 06/25/21 Intubation Time: 07:30 Consent: procedure was done emergently as patient had coughed his ETT out A pre-procedural Time-Out was completed immediately before starting the procedure and confirmed: Patient Identification, Site, Procedure, Patient Position and the Availability of Requisite Equipment: Yes Sedative: other ( propofol) Mg given: 100 Paralytic: succinylcholine Mg given: 100 Laryngoscope: fiber optic video scope Assist device used: fiber optic device ET tube size: 7.5 Tube secured depth (cm): 26 Tube secured location: lips Tube placement confirmation: visualized tube passing through cords, equal breath sounds bilaterally, no breath sounds over epigastrium and confirmation by capnometry Patient tolerated procedure: well Intubation complications: none Additional comments: large amount of secretions seen
--- NOTE | 2021-06-25 09:44 | WPDINTPN ---
Progress Note: A&P Assessment and Plan (1) Cardiac arrest: Code(s): I46.9 - Cardiac arrest, cause unspecified Status: Acute Assessment and Plan: patient had a cardiac arrest at home of unclear etiology, according the records initially was in asystole followed by V-tach, defibrillation, VFib, shock and ACLS protocol. ROSC was obtained, According to medical records EMS arrived at 3:22 a.m. and ROSC was achieved at 3:41 a.m.. - lactic acid and metabolic acidosis has resolved. electrolytes are within normal limits. - possible causes could be drug induced, PE, seizures. - drug screen was positive for opiates and cannabinoids - patient had seizure activity post cardiac arrest which could be related to anoxic injury, patient on IV valproic acid. - Appreciate neurology evaluation and recommendation - appreciate cardiology evaluation and recommendation - echocardiogram showed EF of 65-70%. Severe concentric increased left ventricular wall thickness. Grade 1 diastolic dysfunction. Mild pulmonary hypertension with RVSP of 38 mmHg. - Off sedation patient opens eyes, rate in the follows commands (2) Seizure: Code(s): R56.9 - Unspecified convulsions Status: Acute Assessment and Plan: post cardiac arrest seizure activity requiring Ativan . likely secondary to anoxic injury - appreciate Neurology evaluation, Continue IV valproic acid - currently on propofol infusion - p.r.n. Ativan. - EEG was done on 06/21/2021: Abnormal record due to the presence of bihemispheric theta and delta activity without any paroxysmal discharge. These abnormalities are suggestive of underlying organic or metabolic encephalopathy or postictal state. clinical correlation recommended (3) Acute respiratory failure: Code(s): J96.00 - Acute respiratory failure, unspecified whether with hypoxia or hypercapnia Status: Acute Assessment and Plan: acute respiratory failure with metabolic acidosis - intubated on 06/18/21. ET tube was dislodged and patient was reintubated 06/25 - chest x-ray and ABGs reviewed, patient placed on ASV mode - patient back on propofol - continue cefepime. Off vancomycin -thick secretions, on pulmozyme (4) Elevated LFTs: Code(s): R79.89 - Other specified abnormal findings of blood chemistry Status: Acute Assessment and Plan: elevated LFTs likely related to cardiac arrest - LFTs trending down gradually (5) ESRD (end stage renal disease) on dialysis: Code(s): N18.6 - End stage renal disease; Z99.2 - Dependence on renal dialysis Status: Acute Assessment and Plan: patient has history of end-stage renal disease on peritoneal dialysis. - Metabolic acidosis likely related to lactic acidosis due to cardiac arrest - nephrology following the patient - PD per edge finisher (6) Gastroenteritis: Code(s): K52.9 - Noninfective gastroenteritis and colitis, unspecified Status: Acute Assessment and Plan: Pt with Nausea, vomiting and diarrhea, - stool for C diff is negative - stool cultures negative - KUB during this admission showing normal bowel gas pattern the upper abdomen -FMS placed due to multiple episodes of diarrhea - CT scan Abd and pelvis: 1. Small volume of ascites with free intraperitoneal gas in the upper abdomen. Findings could be related to peritoneal dialysis as no definite source of free air is identified. 2. Mild left hydronephrosis of unclear etiology. (7) Erythropoietin deficiency anemia: Code(s): D63.1 - Anemia in chronic kidney disease Status: Acute Assessment and Plan: h/o Anemia, HB 8.9 this morning, could be dilutional Will monitor (8) Hypertension: Code(s): I10 - Essential (primary) hypertension Status: Acute Assessment and Plan: on admission patient was hypertensive with systolics in the 230s to 240s upon arrival to the ICU, was given hydralazine and l
[2021-06-25 10:22] LABS: Alveolar/Arterial O2 Gradient 106.3 mmHg; Base Excess ABG 0.7 mEq/l (+/-2.0); Fractional Inspired Oxygen 30 %; HCO3 ABG 24.7 mEq/l (22.0-26.0); Oxygen Content ABG 14.5 %vol (16.0-22.0); Oxygen Saturation ABG 93.1 % (95.0-100.0); Oxyhemoglobin 88.7 % THb (90.0-100.0); PCO2 ABG 37.5 mmHg (35.0-45.0); PO2 ABG 63.5 mmHg (80.0-100.0); PO2 FiO2 Ratio Arterial Blood 2.12 %; Total Hemoglobin 11.6 g/dL (12.0-18.0); pH ABG 7.437 (7.350-7.450)
[2021-06-25 10:25] LABS: Arterial Blood Gas Vent Mode ASV; Device VENTILATOR; Modified Allen's Test Pass; Site Drawn RIGHT RADIAL
[2021-06-25 10:26] LABS: Arterial Blood Gas PEEP 5 cmH2O
--- NOTE | 2021-06-25 12:00 | PCDIET ---
Nutrition Follow-Up Complete: Nutrition Diagnosis: Inadequate oral food intake related to ventilation secondary to s/p cardiac arrest as evidence by NPO diet order. Nutrition Goal: Meet estimated nutritional needs. Goal met. Patient tolerating Nepro at 40mL/hr with Pro-Stat 1x daily and Banatrol TID. Propfol started at 15.98mL/hr which provides 421kcal over 24 hours per day. If continued, will likely recommend decreasing tube feeding rate. Will monitor. Last recorded weight is 80.2 kg which is down from last review. Bowel Motility: FMS in place. Labs Reviewed: RBC (4.15), Hgb (11.2), Hct (33.4), Glu (111), BUN (130), Cr (14.70), PO4 (11.3), Mg (3.1) Meds Noted: Norvasc, Phoslo, Coreg, Retacrit, Cefepime, Pulmozyme, Apresoline, Cozaar, Protonix, Valproate Sodium Additional Notes: Medial chest abrasion. Will continue to monitor with same goal. Nutrition Monitoring and Evaluation: Follow up every Thursday/Thursday.
[2021-06-25] MEDS: HEPARIN SODIUM 5,000 UNITS/ML VIAL 5000 UNITS SUB-Q ×2 (13:16→21:46)
--- NOTE | 2021-06-25 13:24 | PM.IMPN ---
Progress Note: A&P Assessment and Plan (1) Cardiac arrest: Code(s): I46.9 - Cardiac arrest, cause unspecified Status: Acute Assessment and Plan: EMS called at 0314 and they arrived at 0322 and ROSC achieved at 0341. Etiology of the cardiac arrest is unclear but patient was in VFib arrest requiring 6 shocks and Epinephrine. No significant electrolyte abnormalities to explain this event. He does have metabolic acidosis but lactic 9.0 to suggest this might be related to the cardiac arrest and not the etiology of his arrest. Etiology of the malignant arrhythmias unknown. UDS positive opiates, cannabinoids. Echo with EF 65-70% with Grade I DD. He does have episodes of VTach still. Continue telemetry monitoring. Continue aspirin. Appreciate neurology and cardiology evaluation. Appreciate paper pattern folder input. (2) Seizure: Code(s): R56.9 - Unspecified convulsions Status: Acute Assessment and Plan: EMS called at 0314 and they arrived at 0322 and ROSC achieved at 0341. Patient has developed seizures. Currently on VPA. CT brain 06/18 showing numerous small regions of significantly decreased attenuation in the bilateral basal ganglia, shereen and bilateral occipital white matter. The differential diagnosis includes posterior reversible encephalopathy syndrome (PRES), subacute to chronic lacunar infarcts/premature chronic small vessel ischemic disease (especially if the patient has cardiovascular risk factors), demyelinating disease such as multiple sclerosis or acute disseminated encephalomyelitis (ADEM), drug abuse, vasculitis, or reactive astrocytosis (gliosis) secondary to other nonspecific etiology. CT brain 06/25 showing new left centrum semiovale hypodensity, confirming acute or acute on chronic process, such as infarctions, ADEM, vasculopathy. Other bilateral white matter, deep rice matter, shereen hypodensity stable or slight decrease in density. EEG was done on 06/21 showing Abnormal record due to the presence of bihemispheric theta and delta activity without any paroxysmal discharge. These abnormalities are suggestive of underlying organic or metabolic encephalopathy or postictal state. clinical correlation recommended. Ativan available as needed. Continue seizure precautions. He is more awake but odd behavior. Appreciate Neurology evaluation. Continue IV valproic acid (3) Sepsis: Code(s): A41.9 - Sepsis, unspecified organism Status: Acute Assessment and Plan: Patietn not febrile on admission but developed fevers a day or so later. BCx 06/18 growing coag-negative staph 2/2 bottles sensitive to Vanco. Peritoneal fluid also positive for coag-negative staph on 06/17 but no symptoms of SBP. Currently on vancomycin and Cefepime. BCX repeated (4) Acute respiratory failure: Code(s): J96.00 - Acute respiratory failure, unspecified whether with hypoxia or hypercapnia Status: Acute Assessment and Plan: Acute respiratory failure with metabolic acidosis. ABG on admission 7./270 on MV. Related to prolonged down time. Stable on MV. He self-extubated requiring reintubated. Continue to wean off MV as he tolerates. Appreciate paper pattern folder input. (5) Lactic acidosis: Code(s): E87.2 - Acidosis Status: Acute Assessment and Plan: [place] related to cardiac arrest. Patient received 2 L of IV fluid bolus in the ER. Repeat lactic acid has normalized. (6) Elevated LFTs: Code(s): R79.89 - Other specified abnormal findings of blood chemistry Status: Acute Assessment and Plan: Elevated LFTs likely related to cardiac arrest. LFTs trending down gradually (7) ESRD (end stage renal disease) on dialysis: Code(s): N18.6 - End stage renal disease; Z99.2 - Dependence on renal dialysis Status: Acute Assessment and Plan: Patient has history of end-stage renal disease on peritoneal dialysis. Metabolic acidosis likely related to
[2021-06-25] MEDS: PROPOFOL IV EMULSION 100 ML 7.22 MG IV CONT (15:01)
--- NOTE | 2021-06-25 15:46 | PM.PNNEP ---
Progress Note: A&P Assessment and Plan (1) ESRD (end stage renal disease) on dialysis: Code(s): N18.6 - End stage renal disease; Z99.2 - Dependence on renal dialysis Status: Acute Assessment and Plan: the patient has end-stage renal disease. His BUN is rising and is now 130. He is probably catabolic and is overwhelming what the PD can do. Will increase the amount of PD today and will ask surgery to put a PermCath in tomorrow. I talked at length with Mateo about what is been going on. Right now I suggest doing hemodialysis to get the kidney numbers better and then when his catabolic state settles down he might be able to go back on PD. There lot of moving parts because we do not know what kind of shape he'll be in when he is ready for discharge. he may need either he HD or PD pending on whether he goes to [facility], acute rehab, etc. She agrees to catheter placement and hemodialysis. We discussed the risks benefits alternatives and process of hemodialysis. Volume status looks okay. (2) Cardiac arrest: Code(s): I46.9 - Cardiac arrest, cause unspecified Status: Acute Assessment and Plan: The patient is intubated. back on propofol (3) Hypertension: Code(s): I10 - Essential (primary) hypertension Status: Acute Assessment and Plan: His blood pressure is now down! On amlodipine, losartan, minoxidil, and carvedilol. The 1st 3 are on hold with the low blood pressure. (4) Renal osteodystrophy: Code(s): N25.0 - Renal osteodystrophy Status: Acute Assessment and Plan: Phosphorus level is elevated. Propofol is suspended in a phospholipid in so can contribute to phosphorus intake. He is getting Nepro. He is on binders. Will add Renvela. Calcium is creeping up so I do not want to increase the PhosLo. (5) Erythropoietin deficiency anemia: Code(s): D63.1 - Anemia in chronic kidney disease Status: Acute Assessment and Plan: Hemoglobin above 11. he had good output from the PD so may be dry. (6) Gastroenteritis: Code(s): K52.9 - Noninfective gastroenteritis and colitis, unspecified Status: Acute Assessment and Plan: Treat symptomatically Subjective Date/time seen: 06/25/21 15:46 Interval history: patient is still on the ventilator. self extubated this morning and reintubated. Intermittently follows some commands. Exam Narrative: Exam Narrative: WDWN in NAD on the ventilator and sedated. skin no rash or subcu nodules head ncat lungs Mildly coarse cor reg no rub or gallop abd BS+ nontender and soft ext no edema Objective Data Vital Signs Vital Signs: Vital Signs - 24 hr 06/24/21 16:00 06/24/21 16:41 06/24/21 16:42 Temperature 36.3 C L Pulse Rate 92 85 84 Pulse Rate [Apical] Respiratory Rate 31 H Blood Pressure 166/108 H Pulse Oximetry 95 96 06/24/21 18:00 06/24/21 19:50 06/24/21 19:54 Temperature Pulse Rate 83 77 78 Pulse Rate [Apical] Respiratory Rate 32 H 21 H Blood Pressure 151/97 H Pulse Oximetry 95 97 06/24/21 20:00 06/24/21 20:02 06/24/21 22:00 Temperature 36.4 C L Pulse Rate 78 77 81 Pulse Rate [Apical] Respiratory Rate 20 20 21 H Blood Pressure 133/75 140/84 Pulse Oximetry 95 95 06/24/21 22:55 06/25/21 00:00 06/25/21 02:00 Temperature 35.8 C L Pulse Rate 80 79 92 Pulse Rate [Apical] Respiratory Rate 20 20 Blood Pressure 149/75 H 140/81 Pulse Oximetry 96 96 97 06/25/21 02:30 06/25/21 04:00 06/25/21 05:08 Temperature Pulse Rate 78 79 89 Pulse Rate [Apical] Respiratory Rate 18 Blood Pressure 135/79 Pulse Oximetry 96 96 96 06/25/21 06:00 06/25/21 07:00 06/25/21 08:00 Temperature 35.2 C L Pulse Rate 87 90 83 Pulse Rate [Apical] Respiratory Rate 18 24 H 20 Blood Pressure 188/110 H 133/72 104/53 L Pulse Oximetry 97 97 93 07/2
[2021-06-25] MEDS: SEVELAMER CARBONATE 800 MG TABLET 1600 MG PO (17:52)
--- NOTE | 2021-06-25 18:40 | PM.PNCARD ---
Progress Note: A&P Assessment and Plan (1) Nonsustained ventricular tachycardia: Code(s): I47.2 - Ventricular tachycardia Status: Acute Assessment and Plan: Patient having some runs of nonsustained ventricular tachycardia; at least 2 runs over the last 24 hours. Normal LV function by echo but history of VFib arrest. Potassium is somewhat low, will give a dose today and perhaps Dr. Gandhi can adjust his dialysis for a higher potassium Magnesium was mildly elevated Continue beta-chapo; currently taking carvedilol 25 mg BID, will try to go back up to 37.5 mg BID and lower dose of amlodipine and perhaps minoxidil if need be. If frequent or sustained episodes --> amiodarone. If pt has a functional recovery, consider ICD implant (2) Cardiac arrest with ventricular fibrillation: Code(s): I46.9 - Cardiac arrest, cause unspecified; I49.01 - Ventricular fibrillation Status: Acute (3) Anoxic brain injury: Code(s): G93.1 - Anoxic brain damage, not elsewhere classified Status: Acute Subjective Date/time seen: 06/25/21 18:40 Interval history: Follow-up for a prolonged VFib arrest requiring several defibrillations, ventricular arrhythmias. Also had a seizure, hypertensive, being treated for coag-negative staph sepsis and encephalopathy. Date of service 06/25/2021: Asked to see the patient again because he has been having more nonsustained ventricular tachycardia. Had a 6 second run of ugly somewhat polymorphic VT which accelerated then spontaneously went back to NSR this a.m. and yesterday had another short run (no rhythm strip). Patient self-extubated after a coughing fit and had to be reintubated today, lots of secretions. Apparently intermittently follows commands but is now sedated. Remains a full code. Blood pressure is quite labile, hypotensive at times, evening out w/ sedation. Review of Systems Review of Systems: Narrative: Obtained fr EMR and the pt's RN ROS unobtainable: Yes unobtainable due to endotracheal tube, unobtainable due to medical condition and unobtainable due to mental status Constitutional: Constitutional: Reports no additional constitutional complaints Eyes: Eyes: Reports no additional eye complaints ENT: Reports system reviewed and no additional complaints, except as documented Cardiovascular: Cardiovascular: Reports no additional cardiovascular complaints Respiratory: Respiratory: Reports no additional respiratory complaints Gastrointestinal: Gastrointestinal: Reports diarrhea Genitourinary: Genitourinary: Reports as per HPI (Peritoneal dialysis) Musculoskeletal: Musculoskeletal: Reports no additional musculoskeletal complaints Integumentary/Breasts: Skin/Breast: Reports system reviewed and no additional complaints, except as docu Neurologic: Reports confusion Comments: Has intermittently squeezed RN's hand Psychiatric: Psychiatric: Reports no additional psychiatric complaints Exam Narrative: Exam Narrative: Fit-appearing AAM, intubated, sedated, w/ rectal tube in place for diarrhea. Intermittent jerking motions of torso/upperabdomen which may be hiccups or myoclonus. Const: General: comfortable and no acute distress HENMT: Mouth: Yes dry mucous membranes Other: ET tube Eyes: Other: Pupils equal Neck: Neck: supple Resp: Effort & Inspection: normal respiratory effort Auscultation: clear to auscultation bilaterally Cardio: Rate: regular rate Rhythm: regular rhythm Heart sounds: Murmur heart sound present (1.6 DONELL LSB) GI: Inspection: non-distended GI Palp: Yes Soft to palpation and No Tenderness to palpation present (GI) Other: rectal tube Skin: General skin exam: normal color and no rashes or lesions noted Neuro: Cognition (Neuro): abnormal cognition Other: SEdated, unresponsive Extrem: General: no edema and no pedal edema Other: warm feet Psych: Mental Status: mental status grossly abnormal Objective Data
[2021-06-25 19:25] LABS: Hepatitis B Surface Antigen Negative (Negative)
[2021-06-25] MEDS: POTASSIUM CHLORIDE 20 MEQ PACKET (FOR LIQUID) FEED TUBE (21:46)
[2021-06-26] VITALS (41 sets, daily range): BP systolic 86–160; BP diastolic 53–99; PULSE 78–115; RESP 14–30; TEMP 35.9–37.2; O2SAT 92–99
[2021-06-26] MEDS: CALCIUM ACETATE 667 MG TABLET 2001 MG FEED TUBE ×2 (04:15→19:45)
[2021-06-26 04:42] LABS: Alveolar/Arterial O2 Gradient 98.9 mmHg; Base Excess ABG 0.1 mEq/l (+/-2.0); Carboxyhemoglobin 0.3 % THb (0-2.0); Fractional Inspired Oxygen 30 %; HCO3 ABG 23.6 mEq/l (22.0-26.0); Methemoglobin ABG 0.2 %THb (0-1.5); Oxygen Content ABG 12.8 %vol (16.0-22.0); Oxygen Saturation ABG 95.9 % (95.0-100.0); Oxyhemoglobin 92.4 % THb (90.0-100.0); PCO2 ABG 33.7 mmHg (35.0-45.0); PO2 ABG 75.4 mmHg (80.0-100.0); PO2 FiO2 Ratio Arterial Blood 2.51 %; Reduced Hemoglobin 7.1 %THb (0-5.0); Total Hemoglobin 9.8 g/dL (12.0-18.0); pH ABG 7.463 (7.350-7.450)
[2021-06-26 04:43] LABS: Arterial Blood Gas Vent Mode ASV; Device VENTILATOR; Modified Allen's Test Pass; Site Drawn RIGHT RADIAL
[2021-06-26 04:44] LABS: Arterial Blood Gas Minute Volume 100 LPM; Arterial Blood Gas PEEP 5 cmH2O
[2021-06-26] MEDS: PROPOFOL IV EMULSION 100 ML 7.22 MG IV CONT ×2 (05:24→18:20)
[2021-06-26] MEDS: CENTRAL LINE FLUSH 10 ML IV PUSH ×3 (05:25→20:24)
[2021-06-26 06:08] LABS: Hematocrit 32.6 % (42.0-52.0); Hemoglobin 11.3 g/dL (14.0-18.0); Mean Corpuscular HGB Conc 34.7 g/dl (32-36); Mean Corpuscular Hemoglobin 27.2 pg (26-34); Mean Corpuscular Volume 78.4 fl (80-100); Mean Platelet Volume 9.5 fl (7.4-10.4); Platelet Count Result 312 k/mm3 (150-375); Red Blood Count 4.16 M/mm3 (4.6-6.20); Red Cell Distribution Width 13.8 % (11.5-14.5); White Blood Count 14.6 K/mm3 (4.5-10.0)
[2021-06-26 06:22] LABS: Alanine Aminotransferase 59 U/L (4-50); Albumin Level 3.2 g/dL (3.5-5.1); Alkaline Phosphatase 62 U/L (38-126); Anion Gap 23 mmol/L (8-16); Aspartate Amino Transferase 51 U/L (17-59); Bilirubin,Total 0.3 mg/dL (0.2-1.3); Calcium 9.7 mg/dL (8.4-10.2); Carbon Dioxide 24 mmol/L (22-30); Chloride 92 mmol/L (98-107); Glucose 113 mg/dL (65-110); Magnesium 3.2 mg/dL (1.6-2.3); Potassium 3.7 mmol/L (3.4-5.0); Sodium 139 mmol/L (137-145)
[2021-06-26 06:28] LABS: Estimated CRCL calculation 6 ml/min; Estimated Glomerular Filt Rate 4
[2021-06-26 06:58] LABS: Vancomycin Random 18.8 ug/mL (10-20)
[2021-06-26 06:59] LABS: Blood Urea Nitrogen 148 mg/dL (9-20)
[2021-06-26] MEDS: DORNASE ALFA INH SOLN 1 MG/ML 2.5 ML AMP 2.5 MG INHALATION ×2 (08:35→19:30)
[2021-06-26] MEDS: HEPARIN SODIUM 5,000 UNITS/ML VIAL 5000 UNITS SUB-Q ×2 (09:10→20:24)
[2021-06-26] MEDS: CEFEPIME 0.5 GM in DEXTROSE 5% IN WATER 50 ML IVPB (09:10)
--- NOTE | 2021-06-26 10:20 | PM.PNNEP ---
Progress Note: A&P Assessment and Plan (1) ESRD (end stage renal disease) on dialysis: Code(s): N18.6 - End stage renal disease; Z99.2 - Dependence on renal dialysis Status: Acute Assessment and Plan: the patient has end-stage renal disease. His BUN is rising and is now 158 will proceed with hemodialysis. (2) Cardiac arrest: Code(s): I46.9 - Cardiac arrest, cause unspecified Status: Acute Assessment and Plan: The patient is intubated. back on propofol (3) Hypertension: Code(s): I10 - Essential (primary) hypertension Status: Acute Assessment and Plan: His blood pressure Is doing well right now. On carvedilol alone. Fold other BP meds in as needed. (4) Renal osteodystrophy: Code(s): N25.0 - Renal osteodystrophy Status: Acute Assessment and Plan: Phosphorus level is elevated. Propofol is suspended in a phospholipid in so can contribute to phosphorus intake. He is getting Nepro. He is on Calcium acetate and sevelamer hemodialysis may help this (5) Erythropoietin deficiency anemia: Code(s): D63.1 - Anemia in chronic kidney disease Status: Acute Assessment and Plan: Hemoglobin above 11. he had good output from the PD so may be dry. (6) Gastroenteritis: Code(s): K52.9 - Noninfective gastroenteritis and colitis, unspecified Status: Acute Assessment and Plan: Treat symptomatically Subjective Date/time seen: 06/26/21 10:20 Interval history: patient is still on the ventilator. sedated on PD and tolerating it well. Seen at 9:30 a.m. Exam Narrative: Exam Narrative: WDWN in NAD on the ventilator and sedated. skin no rash or subcu nodules head ncat lungs Mildly coarse cor reg no rub or gallop abd BS+ nontender and soft ext no edema or cyanosis Objective Data Vital Signs Vital Signs: Vital Signs - 24 hr 06/25/21 10:38 06/25/21 10:43 06/25/21 11:55 Temperature 35.3 C L 35.3 C L Pulse Rate 86 86 81 Pulse Rate [Apical] 86 Respiratory Rate 18 18 Blood Pressure 151/88 H 151/88 H Pulse Oximetry 97 06/25/21 12:00 06/25/21 14:00 06/25/21 14:10 Temperature 35.7 C L Pulse Rate 80 85 85 Pulse Rate [Apical] Respiratory Rate 12 19 Blood Pressure 77/39 L 86/46 L Pulse Oximetry 96 98 97 06/25/21 16:00 06/25/21 17:40 06/25/21 18:00 Temperature Pulse Rate 87 97 96 Pulse Rate [Apical] Respiratory Rate 17 Blood Pressure 94/58 L Pulse Oximetry 93 92 91 06/25/21 20:00 06/25/21 20:02 06/25/21 20:10 Temperature 36.8 C Pulse Rate 92 94 95 Pulse Rate [Apical] Respiratory Rate 14 16 Blood Pressure 120/72 Pulse Oximetry 93 94 06/25/21 20:21 06/25/21 22:00 06/25/21 22:56 Temperature 36.7 C Pulse Rate 96 93 94 Pulse Rate [Apical] Respiratory Rate 14 18 Blood Pressure 126/74 Pulse Oximetry 93 93 06/26/21 00:00 06/26/21 02:00 06/26/21 02:24 Temperature 36.6 C 36.6 C Pulse Rate 95 90 92 Pulse Rate [Apical] Respiratory Rate 14 14 Blood Pressure 132/87 120/68 Pulse Oximetry 93 94 94 06/26/21 04:00 06/26/21 04:09 06/26/21 05:22 Temperature 36.2 C L Pulse Rate 99 101 H 91 Pulse Rate [Apical] Respiratory Rate 16 14 Blood Pressure 125/72 Pulse Oximetry 94 94 06/26/21 06:00 06/26/21 08:00 06/26/21 08:36 Temperature 36.4 C 37.2 C Pulse Rate 90 102 H 94 Pulse Rate [Apical] Respiratory Rate 14 14 18 Blood Pressure 117/53 L 107/58 L Pulse Oximetry 93 96 94 06/26/21 08:44 06/26/21 10:00 Temperature Pulse Rate 94 95 Pulse Rate [Apical] Respiratory Rate 17 21 H Blood Pressure 121/65 Pulse Oximetry 94 Intake/Output Intake/Output: Intake & Output 06/23/21 06/24/21 06/25/21 06/26/21 23:59 23:59 23:59 23:59 Intake Total 1614 1491 1356 1060 Output Total -233 1050 5327 200 Balance 1847 441 -[phone] Meds/Results Medications:
[2021-06-26] MEDS: MINERAL OIL/WHITE PETROLATUM OINTMENT 1 APPLIC EACH EYE ×2 (11:01→20:23)
[2021-06-26] MEDS: PANTOPRAZOLE SODIUM IV 40 MG VIAL IV PUSH ×2 (11:01→20:23)
--- NOTE | 2021-06-26 11:03 | PCDIET ---
ICU Rounding Note: Tube feedings held for tunneled dialysis cath placement. Recommend resuming Nepro at 40mL/hr with Pro-Stat daily and Banatrol TID once able. Propofol infusing at 7.22mL/hr which provides 190kcal per day; however, patient will no longer be absorbing dextrose from PD; thus, tube feeding/flushes appropriate. Last recorded weight is 81.3kg which is increased from last review. Bowel Motility: FMS in place. Continued Banatrol for potential bulking. Labs Reviewed: WBC (14.6), RBC (4.16), Hgb (11.3), Hct (32.6), Glu (113), BUN (148), Cr (15.90), Mg (3.2), Alb (3.2) Meds Noted: Phoslo, Renvela, Norvasc, Pulmozyme, Ativan, Cozaar, Coreg, Cefepime, Retacrit, Apresoline, Loniten, Protonix, KCl, Valproate Sodium Additional Notes: Noted Renvela added for hyperphosphatemia. HD may also help with phosphorus removal. Medial chest incision documented with no pressure sores. Following daily in ICU rounds. Assessing/reassessing every Thursday/Thursday.
--- NOTE | 2021-06-26 11:40 | WPDINTPN ---
Progress Note: A&P Assessment and Plan (1) Acute respiratory failure: Code(s): J96.00 - Acute respiratory failure, unspecified whether with hypoxia or hypercapnia Status: Acute Assessment and Plan: acute respiratory failure with metabolic acidosis - intubated on 06/18/21. ET tube was dislodged and patient was reintubated 06/25 - chest x-ray and ABGs reviewed, patient placed on ASV mode. ASV changed to 80% minute ventilation today - patient back on propofol - continue cefepime. Off vancomycin -thick secretions, on pulmozyme - will try weaning again after hemodialysis (2) Cardiac arrest: Code(s): I46.9 - Cardiac arrest, cause unspecified Status: Acute Assessment and Plan: patient had a cardiac arrest at home of unclear etiology, according the records initially was in asystole followed by V-tach, defibrillation, VFib, shock and ACLS protocol. ROSC was obtained, According to medical records EMS arrived at 3:22 a.m. and ROSC was achieved at 3:41 a.m.. - possible causes could be drug induced, PE, seizures. - drug screen was positive for opiates and cannabinoids - appreciate cardiology evaluation and recommendation - echocardiogram showed EF of 65-70%. Severe concentric increased left ventricular wall thickness. Grade 1 diastolic dysfunction. Mild pulmonary hypertension with RVSP of 38 mmHg. (3) Encephalopathy: Code(s): G93.40 - Encephalopathy, unspecified Status: Acute Assessment and Plan: patient presented after a cardiac arrest. He had abnormal CT head on presentation CT scan of the brain: Numerous small regions of significantly decreased attenuation in the bilateral basal ganglia, shereen and bilateral occipital white matter. The differential diagnosis includes posterior reversible encephalopathy syndrome (PRES), subacute to chronic lacunar infarcts/premature chronic small vessel ischemic disease (especially if the patient has cardiovascular risk factors), demyelinating disease such as multiple sclerosis or acute disseminated encephalomyelitis (ADEM), drug abuse, vasculitis, or reactive astrocytosis (gliosis) secondary to other nonspecific etiology EEG was done on 06/21/2021: Abnormal record due to the presence of bihemispheric theta and delta activity without any paroxysmal discharge. These abnormalities are suggestive of underlying organic or metabolic encephalopathy or postictal state. clinical correlation recommended He likely has anoxic brain injury although PRES or hypertensive encephalopathy could also be a contributor or a possibility. Unable to obtain MRI on a vented patient at this hospital but will likely not change management coordinator. He is also uremic Repeat Head CT 06/25 1. New left centrum semiovale hypodensity, confirming acute or acute on chronic process, such as infarctions, ADEM, vasculopathy. 2. Other bilateral white matter, deep rice matter, shereen hypodensity stable or slight decrease in density. 3. No acute hemorrhage Manage blood pressure Consulted neurology Continue valproic acid Currently sedated with propofol for mechanical ventilation. sedation holiday after hemodialysis today (4) Seizure: Code(s): R56.9 - Unspecified convulsions Status: Acute Assessment and Plan: post cardiac arrest seizure activity requiring Ativan. likely secondary to anoxic injury - appreciate Neurology evaluation - patient was started on IV valproic acid - currently on propofol infusion for sedation - p.r.n. Ativan. - EEG was done on 06/21/2021: Abnormal record due to the presence of bihemispheric theta and delta activity without any paroxysmal discharge. These abnormalities are suggestive of underlying organic or metabolic encephalopathy or postictal state. clinical correlation recommended (5) Elevated LFTs: Code(s): R79.89 - Other specified abnormal findings of blood chemistry Status: Acute Assessment and Plan: elevated LFTs l
--- NOTE | 2021-06-26 11:51 | PM.CNGS ---
Assessment and Plan Assessment and plan (1) ESRD (end stage renal disease) on dialysis: Code(s): N18.6 - End stage renal disease; Z99.2 - Dependence on renal dialysis Status: Acute Assessment and Plan: will setup for placement of TDC as requested by nephrology, hold TF for now, consent obtained (2) Cardiac arrest with ventricular fibrillation: Code(s): I46.9 - Cardiac arrest, cause unspecified; I49.01 - Ventricular fibrillation Status: Acute Assessment and Plan: mgmt per cadiology (3) Anoxic brain injury: Code(s): G93.1 - Anoxic brain damage, not elsewhere classified Status: Acute Assessment and Plan: intermittently following some commands per nursing History of Present Illness Consult details Consult date: 06/26/21 Reason for consult: other (renal failure) Requesting physician: Davian Foster MD Narrative: Pt is a 40 y/o M c multiple med issues including ESRD on PD presenting on 06/18 s/p cardiac arrest. Pt has been intubated since that time and all history obtained via chart. Pt had felt ill prior to episode and had missed PD for 3 days prior to episode. Pt also c/o abd pain, N/V. Pt has been [place] since admit but cont to have rising BUN, Cr and decision to proceed c emergent HD at this time. Review of Systems Review of Systems: ROS unobtainable: Yes unobtainable due to medical condition and unobtainable due to mental status PMFSH Past Medical History Medical History Cardiac arrest Erythropoietin deficiency anemia ESRD (end stage renal disease) on dialysis Gastroenteritis HTN (hypertension) Hypertension Renal osteodystrophy Family History Family History Mother Hypertension Social History Social History Social History: Patient smokes half a pack a day and has smoked for 15 years up to a pack a no alcohol use. Smokes marijuana for appetite stimulant but no other drug use. Lives at home with his significant other, his mother and his maternal grandmother. his significant other is his caregiver. Full code is listed. Smoking packs per day: 1 Smoking cigarettes per day: 20.0 Smoking status: Unknown if ever smoked Tobacco type: cigarettes Alcohol intake: unknown Substance use: current Substance use type: marijuana Last use: smokes marijuana daily Gender identity (if verbalized by the patient): Male Spiritual care concerns: No Meds Home Medications and Allergies Home Medications Medication Instructions Recorded Confirmed Type amlodipine 10 mg PO DAILY 06/17/21 06/18/21 History carvedilol 25 mg PO BID 06/17/21 06/18/21 History clonidine 0.3 mg TRANSDERMAL DIRECTED 06/17/21 06/18/21 History famotidine 20 mg PO DAILY 06/17/21 06/18/21 History gabapentin 100 mg PO HS 06/17/21 06/18/21 History minoxidil 15 mg PO BID 06/17/21 06/18/21 History spironolactone 50 mg PO DAILY 06/17/21 06/18/21 History losartan 100 mg PO DAILY 06/18/21 06/18/21 History Allergies Allergy/AdvReac Type Severity Reaction Status Date / Time No Known Allergies Allergy Verified 06/18/21 08:36 Vital Signs Vital Signs - 24 hr 06/25/21 11:55 06/25/21 12:00 06/25/21 14:00 Temperature 35.7 C L Pulse Rate 81 80 85 Respiratory Rate 12 19 Blood Pressure 77/39 L 86/46 L Pulse Oximetry 97 96 98 06/25/21 14:10 06/25/21 16:00 06/25/21 17:40 Temperature Pulse Rate 85 87 97 Respiratory Rate Blood Pressure Pulse Oximetry 97 93 92 06/25/21 18:00 06/25/21 20:00 06/25/21 20:02 Temperature 36.8 C Pulse Rate 96 92 94 Respiratory Rate 17 14 Blood Pressure 94/58 L 120/72 Pulse Oximetry 91 93 94 06/25/21 20:10 06/25/21 20:21 06/25/21 22:00 Temperature 36.7 C Pulse Rate 95 96 93 Respiratory Rate 16 14 18 Blood Pressure 126/74 Pulse Oximetry 93 06/25/21
--- NOTE | 2021-06-26 11:58 | WPDHPUPDATE1 ---
History and Physical Update Update Date/Time: 06/26/21 11:58 History and Physical has been reviewed, including an updated exam of the patient. There are NO changes in the patient's condition. Risks, benefits, and alternatives have been discussed and questions answered. Patient agrees to proceed with procedure.
--- NOTE | 2021-06-26 14:08 | PM.IMPN ---
Progress Note: A&P Assessment and Plan (1) Cardiac arrest: Code(s): I46.9 - Cardiac arrest, cause unspecified Status: Acute Assessment and Plan: EMS called at 0314 and they arrived at 0322 and ROSC achieved at 0341. Etiology of the cardiac arrest is unclear but patient was in VFib arrest requiring 6 shocks and Epinephrine. No significant electrolyte abnormalities to explain this event. He does have metabolic acidosis but lactic 9.0 to suggest this might be related to the cardiac arrest and not the etiology of his arrest. Etiology of the malignant arrhythmias unknown. UDS positive opiates, cannabinoids. Echo with EF 65-70% with Grade I DD. He does have episodes of VTach still. Continue telemetry monitoring. Continue aspirin. Appreciate cardiology evaluation. Appreciate church warden input. (2) Seizure: Code(s): R56.9 - Unspecified convulsions Status: Acute Assessment and Plan: EMS called at 0314 and they arrived at 0322 and ROSC achieved at 0341. Patient has developed seizures. Currently on VPA. CT brain 06/18 showing numerous small regions of significantly decreased attenuation in the bilateral basal ganglia, shereen and bilateral occipital white matter. The differential diagnosis includes posterior reversible encephalopathy syndrome (PRES), subacute to chronic lacunar infarcts/premature chronic small vessel ischemic disease (especially if the patient has cardiovascular risk factors), demyelinating disease such as multiple sclerosis or acute disseminated encephalomyelitis (ADEM), drug abuse, vasculitis, or reactive astrocytosis (gliosis) secondary to other nonspecific etiology. CT brain 06/25 showing new left centrum semiovale hypodensity, confirming acute or acute on chronic process, such as infarctions, ADEM, vasculopathy. Other bilateral white matter, deep rice matter, shereen hypodensity stable or slight decrease in density. EEG was done on 06/21 showing Abnormal record due to the presence of bihemispheric theta and delta activity without any paroxysmal discharge. These abnormalities are suggestive of underlying organic or metabolic encephalopathy or postictal state. clinical correlation recommended. Ativan available as needed. Continue seizure precautions. He did become more awake but odd behavior. Appreciate Neurology evaluation. Continue IV valproic acid (3) Sepsis: Code(s): A41.9 - Sepsis, unspecified organism Status: Acute Assessment and Plan: Patietn not febrile on admission but developed fevers a day or so later. BCx 7/20 growing coag-negative staph 2/2 bottles sensitive to Vanco. Peritoneal fluid also positive for coag-negative staph on 06/17 but no symptoms of SBP. Currently on vancomycin and Cefepime. BCX 06/25 NGTD. Follow (4) Acute respiratory failure: Code(s): J96.00 - Acute respiratory failure, unspecified whether with hypoxia or hypercapnia Status: Acute Assessment and Plan: Acute respiratory failure with metabolic acidosis. ABG on admission 7./270 on MV. Related to prolonged down time. Stable on MV. He self-extubated requiring reintubated 06/25/21. Continue to wean off MV as he tolerates. Appreciate church warden input. (5) Lactic acidosis: Code(s): E87.2 - Acidosis Status: Acute Assessment and Plan: [place] related to cardiac arrest. Patient received 2 L of IV fluid bolus in the ER. Repeat lactic acid has normalized. (6) Elevated LFTs: Code(s): R79.89 - Other specified abnormal findings of blood chemistry Status: Acute Assessment and Plan: Elevated LFTs likely related to cardiac arrest. LFTs trending down gradually (7) ESRD (end stage renal disease) on dialysis: Code(s): N18.6 - End stage renal disease; Z99.2 - Dependence on renal dialysis Status: Acute Assessment and Plan: Patient has history of end-stage renal disease on peritoneal dialysis. Metabolic acidosis like
--- NOTE | 2021-06-26 15:24 | P.PNAN_ITS ---
Anes - Eval Final PreProcedure Day of Procedure 06/26/21 15:24 Patient weight: normal Heart: tachycardia Lungs: other (vented) Airway: Mallampati scale and other (intubated) Neurological: unresponsive (sedated) Last oral intake: >/= 8 hours ASA classification: IV Emergent: no Anesthetic plan: proceed Anesthesia type and monitoring: general ETT and standard monitoring Informed Consent: The patient's anesthetic plan and its attendant risks and bene fits were discussed with the surgeon who obtained consent.
[2021-06-26] MEDS: LIDO 1%/EPINEPHRINE 1:100,000 20 ML VIAL 10 ML INFILTRATE (15:42)
[2021-06-26] MEDS: HEPARIN SODIUM 5,000 UNITS/ML VIAL 5000 UNITS IRRIGATION (15:44)
[2021-06-26] MEDS: HEPARIN SODIUM, PORCINE 10,000 UNITS/10 ML VIAL 4500 UNITS IRRIGATION (15:46)
--- NOTE | 2021-06-26 15:51 | W.PM.PROC2 ---
Procedure Note - Detailed Date of Procedure 06/26/21 Pre-op Diagnosis acute renal failure Post-op Diagnosis same Procedure Performed placement of 28 cm tunneled hemodialysis catheter in right internal jugular vein under both ultrasound and fluroscopic guidance Surgeon Radha Rodriguez MD Anesthesia general and local Indications 40 y/o M s/p cardiac arrest c end stage renal disease Findings 1st stick RIJ under U/S Description of Procedure Patient was taken to the operating room and placed in the supine position. After adequate induction of general anesthesia, the patient was prepped and draped in normal sterile fashion. A time-out was then done to verify the patient's identity as well as the procedure being performed. I began by using the SonoSite and locating the right internal jugular vein. Once this was done, I localized the overlying skin. I then made a small incision in the skin. I then gained access into the right internal jugular vein with an 18 gauge needle. At this point, I threaded the guidewire into the right internal jugular vein. Placement of the guidewire was confirmed by both ultrasound and fluoroscopic guidance. I then went ahead and measured the 28 cm tunneled dialysis catheter to our stick site in the right neck. I then localized the tract going from the right chest to the right neck. I then made a small incision in the right chest and tunneled the catheter to the right neck. I then serially dilated the right internal jugular vein under fluoroscopic guidance. Once adequately dilated, I placed the dilating sheath over the guidewire into the right internal jugular vein under fluoroscopic visualization. Once this was noted to be in good position, I removed both the guidewire and dilator, now just leaving the sheath in the vein. I then went ahead and fed the previously tunneled catheter into the sheath. Once the catheter was fed and positioned correctly, I went ahead and peeled the sheath away. Final fluoroscopic view showed the catheter in good position from its insertion point in the right chest to its termination in the right atrial caval junction. It was noted there was no kinking of the catheter. I was able to easily draw and flush from both ports of the catheter. I placed 2.2 and 2.3 cc of final heparin flush into each port as marked. The catheter was then sutured into place and the incision in the neck was closed with 4 O Monocryl subcuticular suture. The patient tolerated the procedure well and will be transferred to the ICU in critical condition. Sterile dressing was placed on the catheter. Portable chest x-ray will be done in the ICU. Implants 28 cm tunneled hemodialysis catheter Estimated Blood Loss 5 Drains No Packing No Pathology none sent Complications No immediate complications Condition critical Disposition ICU
--- NOTE | 2021-06-26 15:54 | SUR.OPER ---
Ebl=5ml
[2021-06-26] MEDS: SEVELAMER CARBONATE 800 MG TABLET 1600 MG PO (18:22)
--- NOTE | 2021-06-26 19:26 | PC.NURSE ---
Dialysis in process.
[2021-06-26] MEDS: SODIUM CHLORIDE 0.9% IV 1,000 ML 999 ML IV CONT (20:18)
[2021-06-26 20:46] LABS: Hepatitis B Surface Anti Res Positive
[2021-06-27] VITALS (43 sets, daily range): BP systolic 94–174; BP diastolic 43–111; PULSE 94–125; RESP 18–35; TEMP 37–38; O2SAT 93–98
[2021-06-27] MEDS: hydrALAZINE HCL 20 MG/ML VIAL IV PUSH ×2 (00:09→19:30)
[2021-06-27] MEDS: LORazepam INJ (*CRX) 2 MG/ML VIAL IV PUSH (00:09)
[2021-06-27] MEDS: ACETAMINOPHEN ELIXIR 325 MG/10.15 ML UDC 650 MG FEED TUBE (03:28)
[2021-06-27] MEDS: CALCIUM ACETATE 667 MG TABLET 2001 MG FEED TUBE ×3 (03:28→21:43)
[2021-06-27 04:09] LABS: Alveolar/Arterial O2 Gradient 181.6 mmHg; Base Excess ABG 3.2 mEq/l (+/-2.0); Fractional Inspired Oxygen 40 %; HCO3 ABG 25.2 mEq/l (22.0-26.0); Methemoglobin ABG 0.3 %THb (0-1.5); Oxygen Content ABG 16.1 %vol (16.0-22.0); Oxygen Saturation ABG 95.7 % (95.0-100.0); Oxyhemoglobin 92.8 % THb (90.0-100.0); PCO2 ABG 30.3 mmHg (35.0-45.0); PO2 ABG 68.8 mmHg (80.0-100.0); PO2 FiO2 Ratio Arterial Blood 1.72 %; Reduced Hemoglobin 6.9 %THb (0-5.0); Total Hemoglobin 12.3 g/dL (12.0-18.0)
[2021-06-27 04:11] LABS: pH ABG 7.538 (7.350-7.450)
[2021-06-27 04:12] LABS: Device VENTILATOR; Modified Allen's Test Pass; Site Drawn RIGHT RADIAL
[2021-06-27 04:13] LABS: Arterial Blood Gas PEEP 5 cmH2O; Arterial Blood Gas Vent Mode ASV
[2021-06-27 04:29] LABS: Hematocrit 34.5 % (42.0-52.0); Hemoglobin 11.8 g/dL (14.0-18.0); Mean Corpuscular HGB Conc 34.2 g/dl (32-36); Mean Corpuscular Hemoglobin 27.3 pg (26-34); Mean Corpuscular Volume 79.7 fl (80-100); Mean Platelet Volume 9.9 fl (7.4-10.4); Platelet Count Result 368 k/mm3 (150-375); Red Blood Count 4.33 M/mm3 (4.6-6.20); Red Cell Distribution Width 14.3 % (11.5-14.5); White Blood Count 20.2 K/mm3 (4.5-10.0)
[2021-06-27 04:49] LABS: Alanine Aminotransferase 54 U/L (4-50); Albumin Level 3.5 g/dL (3.5-5.1); Alkaline Phosphatase 85 U/L (38-126); Anion Gap 19 mmol/L (8-16); Aspartate Amino Transferase 40 U/L (17-59); Bilirubin,Total 0.4 mg/dL (0.2-1.3); Blood Urea Nitrogen 96 mg/dL (9-20); Calcium 9.7 mg/dL (8.4-10.2); Carbon Dioxide 26 mmol/L (22-30); Chloride 92 mmol/L (98-107); Estimated CRCL calculation 10 ml/min; Estimated Glomerular Filt Rate 7; Glucose 110 mg/dL (65-110); Magnesium 2.6 mg/dL (1.6-2.3); Potassium 4.7 mmol/L (3.4-5.0); Sodium 137 mmol/L (137-145)
[2021-06-27] MEDS: CENTRAL LINE FLUSH 10 ML IV PUSH ×3 (07:16→21:43)
[2021-06-27] MEDS: DORNASE ALFA INH SOLN 1 MG/ML 2.5 ML AMP 2.5 MG INHALATION ×2 (07:36→21:37)
[2021-06-27] MEDS: carvediloL 12.5 MG TABLET 25 MG PO ×2 (08:04→19:00)
[2021-06-27] MEDS: ASPIRIN 81 MG CHEWABLE TABLET PO (08:04)
[2021-06-27] MEDS: PANTOPRAZOLE SODIUM IV 40 MG VIAL IV PUSH ×2 (08:04→21:43)
[2021-06-27] MEDS: MINERAL OIL/WHITE PETROLATUM OINTMENT 1 APPLIC EACH EYE ×2 (08:04→21:43)
[2021-06-27] MEDS: SEVELAMER CARBONATE 800 MG TABLET 1600 MG PO ×3 (08:05→19:01)
[2021-06-27] MEDS: HEPARIN SODIUM 5,000 UNITS/ML VIAL 5000 UNITS SUB-Q ×2 (08:05→21:42)
[2021-06-27] MEDS: LOSARTAN POTASSIUM 100 MG TABLET PO (08:06)
[2021-06-27] MEDS: minoxidiL 2.5 MG TABLET 15 MG PO (08:06)
[2021-06-27] MEDS: amLODIPine BESYLATE 5 MG TABLET 10 MG PO (08:07)
[2021-06-27] MEDS: CEFEPIME 0.5 GM in DEXTROSE 5% IN WATER 50 ML IVPB (08:55)
--- NOTE | 2021-06-27 10:23 | PM.PNNEP ---
Progress Note: A&P Assessment and Plan (1) ESRD (end stage renal disease) on dialysis: Code(s): N18.6 - End stage renal disease; Z99.2 - Dependence on renal dialysis Status: Acute Assessment and Plan: the patient has end-stage renal disease. His BUN is improved on hemodialysis. It dropped from 160-96. He is getting another dialysis today. will proceed with hemodialysis On Thursday after this (2) Cardiac arrest: Code(s): I46.9 - Cardiac arrest, cause unspecified Status: Acute Assessment and Plan: The patient is intubated. back on propofol (3) Hypertension: Code(s): I10 - Essential (primary) hypertension Status: Acute Assessment and Plan: His blood pressure Is doing well right now. On carvedilol alone. Fold other BP meds in as needed. (4) Renal osteodystrophy: Code(s): N25.0 - Renal osteodystrophy Status: Acute Assessment and Plan: Phosphorus level is elevated. getting calcium acetate and sevelamer. Check a phosphorus in the morning (5) Erythropoietin deficiency anemia: Code(s): D63.1 - Anemia in chronic kidney disease Status: Acute Assessment and Plan: Hemoglobin above 11. he had good output from the PD so may be dry. (6) Gastroenteritis: Code(s): K52.9 - Noninfective gastroenteritis and colitis, unspecified Status: Acute Assessment and Plan: Treat symptomatically Subjective Date/time seen: 06/27/21 10:23 Interval history: patient is still on the ventilator. sedated On hemodialysis. Blood pressure started out of 170 and has come down to about 110 so ultrafiltration has been turned off. The patient was seen at 10:30 a.m. Exam Narrative: WDWN in NAD on the ventilator and sedated. skin no rash or subcu nodules head ncat lungs Mildly coarse cor reg no rub or gallop abd BS+ nontender ext no edema Objective Data Vital Signs Vital Signs: Vital Signs - 24 hr 06/26/21 11:20 06/26/21 12:00 06/26/21 13:43 Temperature Pulse Rate 95 94 89 Respiratory Rate 19 Blood Pressure 140/76 Pulse Oximetry 95 94 95 06/26/21 14:00 06/26/21 16:00 06/26/21 16:10 Temperature 36.1 C L Pulse Rate 89 86 88 Respiratory Rate 14 Blood Pressure 86/54 L Pulse Oximetry 98 96 06/26/21 16:27 06/26/21 17:40 06/26/21 18:00 Temperature 35.9 C L Pulse Rate 93 84 94 Respiratory Rate 19 16 22 H Blood Pressure 132/78 151/91 H Pulse Oximetry 98 99 06/26/21 18:20 06/26/21 18:21 06/26/21 18:48 Temperature Pulse Rate 93 90 83 Respiratory Rate 19 Blood Pressure 143/83 H Pulse Oximetry 06/26/21 19:00 06/26/21 19:15 06/26/21 19:30 Temperature Pulse Rate 102 H 102 H 91 Respiratory Rate Blood Pressure 160/91 H 154/90 H 141/79 H Pulse Oximetry 06/26/21 19:31 06/26/21 19:43 06/26/21 19:44 Temperature Pulse Rate 107 H 105 H 97 Respiratory Rate 26 H 30 H Blood Pressure Pulse Oximetry 93 06/26/21 19:45 06/26/21 20:00 06/26/21 20:15 Temperature 36.7 C Pulse Rate 83 100 113 H Respiratory Rate 24 H Blood Pressure 124/68 99/67 L 135/79 Pulse Oximetry 92 06/26/21 20:30 06/26/21 20:45 06/26/21 21:00 Temperature Pulse Rate 112 H 115 H 104 H Respiratory Rate Blood Pressure 123/78 134/77 123/99 H Pulse Oximetry 06/26/21 21:15 06/26/21 21:30 06/26/21 21:48 Temperature Pulse Rate 107 H 112 H 115 H Respiratory Rate Blood Pressure 118/82 106/70 129/91 H Pulse Oximetry 06/26/21 21:55 06/26/21 22:00 06/26/21 22:12 Temperature 37.1 C 37.1 C Pulse Rate 105 H 105 H 104 H Respiratory Rate 25 H 22 H Blood Pressure 112/80 118/74 Pulse Oximetry 98 97 97 06/27/21 00:00 06/27/21 01:00 06/27/21 01:57 Temperature 37.3 C 37.3 C Pulse Rate 103 H 104 H 125 H Respiratory Rate 25 H 30 H Blood Pressure 174/111 H 117/59 L Pulse Oxime
--- NOTE | 2021-06-27 11:26 | PCDIET ---
ICU Rounding Note: Patient tolerating Nepro at 40mL/hr goal rate without reported issues. Receiving 40mL water flush every 4 hours, Banatrol TID, and Pro-Stat 1x daily. Last recorded weight is 81.5kg which is stable with last review. -I/o. Patient had 1.4L removed with HD yesterday. Bowel Motility: FMS in place. Banatrol continued TID. Labs Reviewed: WBC (20.2), RBC (4.33), Hgb (11.8), Hct (34.5), BUN (96), Cr (10.5), Mg (2.6) Meds Noted: Pulmozyme, Norvasc, Retacrit, Renvela, Loniten, Phoslo, Apresoline, Protonix, Coreg, Ativan, Valproate Sodium, Cefepime, Cozaar, Propofol (rate of 7.218mL/hr provides 190kcal per day) Additional Notes: Medial chest abrasion. Following daily in ICU rounds. Assessing/reassessing every Thursday/Thursday.
--- NOTE | 2021-06-27 11:38 | PM.IMPN ---
Progress Note: A&P Assessment and Plan (1) Cardiac arrest: Code(s): I46.9 - Cardiac arrest, cause unspecified Status: Acute Assessment and Plan: EMS called at 0314 and they arrived at 0322 and ROSC achieved at 0341. Etiology of the cardiac arrest is unclear but patient was in VFib arrest requiring 6 shocks and Epinephrine. No significant electrolyte abnormalities to explain this event. He does have metabolic acidosis but lactic 9.0 to suggest this might be related to the cardiac arrest and not the etiology of his arrest. Etiology of the malignant arrhythmias unknown. UDS positive opiates, cannabinoids. Echo with EF 65-70% with Grade I DD. He does continue to have episodes of VTach still. BP soft so can not advance Coreg. Will stop Norvasc and consider advancing Coreg if BP improves. Continue telemetry monitoring. Continue aspirin. Appreciate cardiology evaluation. Appreciate cartridge belt puncher input. (2) Seizure: Code(s): R56.9 - Unspecified convulsions Status: Acute Assessment and Plan: EMS called at 0314 and they arrived at 0322 and ROSC achieved at 0341. Patient developed seizures and VPA started. CT brain 06/18 showing numerous small regions of significantly decreased attenuation in the bilateral basal ganglia, shereen and bilateral occipital white matter. The differential diagnosis includes posterior reversible encephalopathy syndrome (PRES), subacute to chronic lacunar infarcts/premature chronic small vessel ischemic disease (especially if the patient has cardiovascular risk factors), demyelinating disease such as multiple sclerosis or acute disseminated encephalomyelitis (ADEM), drug abuse, vasculitis, or reactive astrocytosis (gliosis) secondary to other nonspecific etiology. CT brain 06/25 showing new left centrum semiovale hypodensity, confirming acute or acute on chronic process, such as infarctions, ADEM, vasculopathy. Other bilateral white matter, deep rice matter, shereen hypodensity stable or slight decrease in density. EEG was done on 06/21 showing Abnormal record due to the presence of bihemispheric theta and delta activity without any paroxysmal discharge. These abnormalities are suggestive of underlying organic or metabolic encephalopathy or postictal state. clinical correlation recommended. No further seizures. Ativan available as needed. Continue seizure precautions. He did become more awake but odd behavior. Appreciate Neurology evaluation. Continue IV valproate (3) Sepsis: Code(s): A41.9 - Sepsis, unspecified organism Status: Acute Assessment and Plan: Patietn not febrile on admission but developed fevers a day or so later. BCx 06/18 growing coag-negative staph 2/2 bottles sensitive to Vanco. Peritoneal fluid also positive for coag-negative staph on 06/17 but no symptoms of SBP. Currently on vancomycin and Cefepime. BCX 06/25 NGTD. Now having low grade fevers after tunneled catheter placement. Continue IV abx for now and follow. (4) Acute respiratory failure: Code(s): J96.00 - Acute respiratory failure, unspecified whether with hypoxia or hypercapnia Status: Acute Assessment and Plan: Acute respiratory failure with metabolic acidosis. ABG on admission 7./270 on MV. Related to prolonged down time. Stable on MV. He self-extubated requiring reintubated 06/25/21. Continue to wean off MV as he tolerates. Appreciate cartridge belt puncher input. (5) Lactic acidosis: Code(s): E87.2 - Acidosis Status: Acute Assessment and Plan: [place] related to cardiac arrest. Patient received 2 L of IV fluid bolus in the ER. Repeat lactic acid has normalized. (6) Elevated LFTs: Code(s): R79.89 - Other specified abnormal findings of blood chemistry Status: Acute Assessment and Plan: Elevated LFTs likely related to cardiac arrest. LFTs trending down gradually (7) ESRD (end stage renal disease) on dialysis: Code(s):
--- NOTE | 2021-06-27 13:46 | WPDINTPN ---
Progress Note: A&P Assessment and Plan (1) Acute respiratory failure: Code(s): J96.00 - Acute respiratory failure, unspecified whether with hypoxia or hypercapnia Status: Acute Assessment and Plan: acute respiratory failure with metabolic acidosis - intubated on 06/18/21. ET tube was dislodged and patient was reintubated 06/25 - chest x-ray and ABGs reviewed, patient placed on ASV mode. ASV changed to 60% minute ventilation today - patient back on propofol. will do sedation holiday and pressure support ventilation again today after hemodialysis - continue cefepime. Off vancomycin -thick secretions, on pulmozyme (2) Cardiac arrest: Code(s): I46.9 - Cardiac arrest, cause unspecified Status: Acute Assessment and Plan: patient had a cardiac arrest at home of unclear etiology, according the records initially was in asystole followed by V-tach, defibrillation, VFib, shock and ACLS protocol. ROSC was obtained, According to medical records EMS arrived at 3:22 a.m. and ROSC was achieved at 3:41 a.m.. - possible causes could be drug induced, PE, seizures. - drug screen was positive for opiates and cannabinoids - appreciate cardiology evaluation and recommendation - echocardiogram showed EF of 65-70%. Severe concentric increased left ventricular wall thickness. Grade 1 diastolic dysfunction. Mild pulmonary hypertension with RVSP of 38 mmHg. (3) Encephalopathy: Code(s): G93.40 - Encephalopathy, unspecified Status: Acute Assessment and Plan: patient presented after a cardiac arrest. He had abnormal CT head on presentation CT scan of the brain: Numerous small regions of significantly decreased attenuation in the bilateral basal ganglia, shereen and bilateral occipital white matter. The differential diagnosis includes posterior reversible encephalopathy syndrome (PRES), subacute to chronic lacunar infarcts/premature chronic small vessel ischemic disease (especially if the patient has cardiovascular risk factors), demyelinating disease such as multiple sclerosis or acute disseminated encephalomyelitis (ADEM), drug abuse, vasculitis, or reactive astrocytosis (gliosis) secondary to other nonspecific etiology EEG was done on 06/21/2021: Abnormal record due to the presence of bihemispheric theta and delta activity without any paroxysmal discharge. These abnormalities are suggestive of underlying organic or metabolic encephalopathy or postictal state. clinical correlation recommended He likely has anoxic brain injury although PRES or hypertensive encephalopathy could also be a contributor or a possibility. Unable to obtain MRI on a vented patient at this hospital but will likely not exchange administrator. He is also uremic Repeat Head CT 06/25 1. New left centrum semiovale hypodensity, confirming acute or acute on chronic process, such as infarctions, ADEM, vasculopathy. 2. Other bilateral white matter, deep rice matter, shereen hypodensity stable or slight decrease in density. 3. No acute hemorrhage Manage blood pressure Consulted neurology Continue valproic acid Currently sedated with propofol for mechanical ventilation. sedation holiday after hemodialysis today (4) Seizure: Code(s): R56.9 - Unspecified convulsions Status: Acute Assessment and Plan: post cardiac arrest seizure activity requiring Ativan. likely secondary to anoxic injury - appreciate Neurology evaluation - patient was started on IV valproic acid - currently on propofol infusion for sedation - p.r.n. Ativan. - EEG was done on 06/21/2021: Abnormal record due to the presence of bihemispheric theta and delta activity without any paroxysmal discharge. These abnormalities are suggestive of underlying organic or metabolic encephalopathy or postictal state. clinical correlation recommended (5) Elevated LFTs: Code(s): R79.89 - Other specified abnormal findings of blood chemistry Status: Acute
[2021-06-28] VITALS (30 sets, daily range): BP systolic 108–168; BP diastolic 51–98; PULSE 57–105; RESP 12–29; TEMP 36.6–37.9; O2SAT 95–100
[2021-06-28 04:58] LABS: Hematocrit 30.2 % (42.0-52.0); Hemoglobin 10.4 g/dL (14.0-18.0); Mean Corpuscular HGB Conc 34.4 g/dl (32-36); Mean Corpuscular Hemoglobin 27.3 pg (26-34); Mean Corpuscular Volume 79.3 fl (80-100); Mean Platelet Volume 9.5 fl (7.4-10.4); Platelet Count Result 286 k/mm3 (150-375); Red Blood Count 3.81 M/mm3 (4.6-6.20); Red Cell Distribution Width 13.9 % (11.5-14.5); White Blood Count 19.7 K/mm3 (4.5-10.0)
[2021-06-28 05:18] LABS: Alanine Aminotransferase 38 U/L (4-50); Albumin Level 3.1 g/dL (3.5-5.1); Alkaline Phosphatase 72 U/L (38-126); Anion Gap 16 mmol/L (8-16); Aspartate Amino Transferase 42 U/L (17-59); Bilirubin,Total 0.3 mg/dL (0.2-1.3); Blood Urea Nitrogen 94 mg/dL (9-20); Calcium 9.4 mg/dL (8.4-10.2); Carbon Dioxide 29 mmol/L (22-30); Chloride 90 mmol/L (98-107); Estimated CRCL calculation 11 ml/min; Estimated Glomerular Filt Rate 8; Glucose 82 mg/dL (65-110); Magnesium 2.8 mg/dL (1.6-2.3); Phosphorus 7.9 mg/dL (2.5-4.5); Potassium 4.6 mmol/L (3.4-5.0); Sodium 135 mmol/L (137-145)
[2021-06-28] MEDS: CENTRAL LINE FLUSH 10 ML IV PUSH ×3 (05:39→21:46)
[2021-06-28] MEDS: CALCIUM ACETATE 667 MG TABLET 2001 MG FEED TUBE ×3 (05:40→21:45)
[2021-06-28 06:01] LABS: Alveolar/Arterial O2 Gradient 173.7 mmHg; Carboxyhemoglobin 0.6 % THb (0-2.0); Fractional Inspired Oxygen 40 %; HCO3 ABG 26.6 mEq/l (22.0-26.0); Methemoglobin ABG 0.3 %THb (0-1.5); Oxygen Content ABG 16.7 %vol (16.0-22.0); Oxygen Saturation ABG 94.8 % (95.0-100.0); Oxyhemoglobin 91.5 % THb (90.0-100.0); PCO2 ABG 37.2 mmHg (35.0-45.0); PO2 ABG 68.7 mmHg (80.0-100.0); PO2 FiO2 Ratio Arterial Blood 1.72 %; Reduced Hemoglobin 7.6 %THb (0-5.0); pH ABG 7.472 (7.350-7.450)
[2021-06-28 06:02] LABS: Device VENTILATOR; Modified Allen's Test Pass; Site Drawn LEFT RADIAL
[2021-06-28 06:03] LABS: Arterial Blood Gas PEEP 5 cmH2O; Arterial Blood Gas Vent Mode ASV
[2021-06-28] MEDS: ASPIRIN 81 MG CHEWABLE TABLET PO (08:19)
[2021-06-28] MEDS: CEFEPIME 0.5 GM in DEXTROSE 5% IN WATER 50 ML IVPB (08:19)
[2021-06-28] MEDS: carvediloL 12.5 MG TABLET 25 MG PO ×2 (08:19→17:21)
[2021-06-28] MEDS: SEVELAMER CARBONATE 800 MG TABLET 1600 MG PO ×3 (08:19→17:22)
[2021-06-28] MEDS: LOSARTAN POTASSIUM 100 MG TABLET PO (08:20)
[2021-06-28] MEDS: PANTOPRAZOLE SODIUM IV 40 MG VIAL IV PUSH (08:20)
[2021-06-28] MEDS: HEPARIN SODIUM 5,000 UNITS/ML VIAL 5000 UNITS SUB-Q ×2 (08:20→21:42)
[2021-06-28] MEDS: MINERAL OIL/WHITE PETROLATUM OINTMENT 1 APPLIC EACH EYE ×2 (08:20→21:43)
[2021-06-28 09:34] LABS: Lipase 2453 U/L (23-300)
[2021-06-28] MEDS: DORNASE ALFA INH SOLN 1 MG/ML 2.5 ML AMP 2.5 MG INHALATION ×2 (09:40→22:42)
[2021-06-28 11:07] LABS: Triglycerides 252 mg/dL (<150)
--- NOTE | 2021-06-28 11:55 | PCDIET ---
Nutrition Follow-Up Complete: Nutrition Diagnosis: Inadequate oral food intake related to mechanical ventilation as evidenced by NPO diet order. Nutrition Goal: Meet estimated nutritional needs. Goal in progress. MD order to hold tube feedings due to significantly elevated lipase level. TG level ordered. Currently off Propofol. Noted OG replaced overnight after patient coughed out ETT. Last recorded weight is 81.5 kg which is stable with last review. Bowel Motility: FMS remains in place. Only about 100mL output, per RN. Labs Reviewed: Lipase (2453), WBC (19.7), RBC (3.87), Hgb (10.4), Hct (30.2), BUN (94), Cr (9.2), Na (135), Alb (3.1), PO4 (7.9), Mg (2.8) Meds Noted: Phoslo, Coreg, Cefepime, Pulmozyme, Pepcid, Cozaar, Renvela, Valproate Sodium Additional Notes: Medial chest abrasion. No documented pressure sores. Will continue to monitor with same goal. Nutrition Monitoring and Evaluation: Follow up every Thursday/Thursday.
--- NOTE | 2021-06-28 12:39 | PM.PNNEP ---
Progress Note: A&P Assessment and Plan (1) ESRD (end stage renal disease) on dialysis: Code(s): N18.6 - End stage renal disease; Z99.2 - Dependence on renal dialysis Status: Acute Assessment and Plan: the patient has end-stage renal disease. His BUN is still in the 90s even after 2 treatments in a row. The patient is very catabolic I feel. He has newly diagnosed pancreatitis which may be contributing to his hypercatabolic state. He will get another dialysis today. will proceed with hemodialysis today. (2) Cardiac arrest: Code(s): I46.9 - Cardiac arrest, cause unspecified Status: Acute Assessment and Plan: The patient is intubated. back on propofol (3) Hypertension: Code(s): I10 - Essential (primary) hypertension Status: Acute Assessment and Plan: His blood pressure Is doing well right now. On carvedilol and losartan. Fold other BP meds in as needed. (4) Renal osteodystrophy: Code(s): N25.0 - Renal osteodystrophy Status: Acute Assessment and Plan: Phosphorus level is elevated. getting calcium acetate and sevelamer. Check a phosphorus in the morning (5) Erythropoietin deficiency anemia: Code(s): D63.1 - Anemia in chronic kidney disease Status: Acute Assessment and Plan: Hemoglobin above 11. he had good output from the PD so may be dry. (6) Gastroenteritis: Code(s): K52.9 - Noninfective gastroenteritis and colitis, unspecified Status: Acute Assessment and Plan: Treat symptomatically Subjective Date/time seen: 06/28/21 12:39 Interval history: patient is still on the ventilator. sedated Family in the room. Patient is unresponsive. Exam Narrative: WDWN in NAD on the ventilator and sedated. skin no rash or subcu nodules head ncat lungs Mildly coarse cor reg no rub or gallop abd BS+ nontender and soft ext no edema or cyanosis Objective Data Vital Signs Vital Signs: Vital Signs - 24 hr 06/27/21 12:48 06/27/21 13:02 06/27/21 14:00 Temperature 37.5 C 37.5 C Pulse Rate 106 H 96 99 Respiratory Rate 21 H 18 Blood Pressure 100/46 L 107/87 96/50 L Pulse Oximetry 95 93 06/27/21 15:02 06/27/21 16:00 06/27/21 16:52 Temperature 37.6 C H Pulse Rate 101 H 99 96 Respiratory Rate 22 H Blood Pressure 139/87 Pulse Oximetry 96 94 97 06/27/21 18:00 06/27/21 19:00 06/27/21 20:00 Temperature 37.7 C H 37.8 C H Pulse Rate 104 H 101 H 112 H Respiratory Rate 28 H 34 H Blood Pressure 148/93 H 126/80 Pulse Oximetry 94 93 06/27/21 21:35 06/27/21 21:37 06/27/21 21:41 Temperature Pulse Rate 94 96 96 Respiratory Rate 20 20 Blood Pressure Pulse Oximetry 95 06/27/21 22:00 06/28/21 00:00 06/28/21 00:36 Temperature 37.8 C H 37.5 C Pulse Rate 103 H 96 96 Respiratory Rate 18 Blood Pressure 138/59 L 131/83 Pulse Oximetry 96 95 95 06/28/21 02:00 06/28/21 04:00 06/28/21 05:31 Temperature 37.2 C Pulse Rate 94 105 H 89 Respiratory Rate 26 H Blood Pressure 138/74 Pulse Oximetry 95 95 06/28/21 06:00 06/28/21 08:00 06/28/21 09:31 Temperature 36.9 C Pulse Rate 100 89 85 Respiratory Rate 15 15 Blood Pressure 150/83 H Pulse Oximetry 98 96 98 06/28/21 09:41 06/28/21 09:50 06/28/21 11:30 Temperature Pulse Rate 87 87 81 Respiratory Rate 14 Blood Pressure Pulse Oximetry 98 100 Intake/Output Intake/Output: Intake & Output 06/25/21 06/26/21 06/27/21 06/28/21 23:59 23:59 23:59 23:59 Intake Total 1356 1430 1032 110 Output Total 5327 1600 375 20 Balance -6597 -795 659 90 Meds/Results Medications: Active Medications Generic Name Dose Route Start Last Admin Trade Name Freq PRN Reason Stop Dose Admin Acetaminophen 650 mg 06/20/21 12:07 06/27/21 03:28 Acetaminophen Elixir 325 Mg/10.15 Ml Udc FEED TUBE 650 mg Q6H PRN Administration Mi
[2021-06-28 12:50] LABS: Glucose Point of Care 74 mg/dl (65-105)
--- NOTE | 2021-06-28 14:19 | PM.IMPN ---
Progress Note: A&P Assessment and Plan (1) Cardiac arrest with ventricular fibrillation: Code(s): I46.9 - Cardiac arrest, cause unspecified; I49.01 - Ventricular fibrillation Status: Acute Assessment and Plan: EMS called at 0314 and they arrived at 0322 and ROSC achieved at 0341. Etiology of the cardiac arrest is unclear but patient was in VFib arrest requiring 6 shocks and Epinephrine. No significant electrolyte abnormalities to explain this event. He does have metabolic acidosis but lactic 9.0 to suggest this might be related to the cardiac arrest and not the etiology of his arrest. Etiology of the malignant arrhythmias unknown. UDS positive opiates, cannabinoids. Echo with EF 65-70% with Grade I DD. He does have episodes of VTach still. Norvasc stopped. Advance Coreg to 37.5mg BID per Cardiology recommendations. Continue telemetry monitoring. Continue aspirin. Appreciate cardiology evaluation. Appreciate shooting gallery operator input. (2) Seizure: Code(s): R56.9 - Unspecified convulsions Status: Acute Assessment and Plan: EMS called at 0314 and they arrived at 0322 and ROSC achieved at 0341. Patient developed seizures and VPA started. CT brain 06/18 showing numerous small regions of significantly decreased attenuation in the bilateral basal ganglia, shereen and bilateral occipital white matter. The differential diagnosis includes posterior reversible encephalopathy syndrome (PRES), subacute to chronic lacunar infarcts/premature chronic small vessel ischemic disease (especially if the patient has cardiovascular risk factors), demyelinating disease such as multiple sclerosis or acute disseminated encephalomyelitis (ADEM), drug abuse, vasculitis, or reactive astrocytosis (gliosis) secondary to other nonspecific etiology. CT brain 06/25 showing new left centrum semiovale hypodensity, confirming acute or acute on chronic process, such as infarctions, ADEM, vasculopathy. Other bilateral white matter, deep rice matter, shereen hypodensity stable or slight decrease in density. EEG was done on 06/21 showing Abnormal record due to the presence of bihemispheric theta and delta activity without any paroxysmal discharge. These abnormalities are suggestive of underlying organic or metabolic encephalopathy or postictal state. clinical correlation recommended. No further seizures. Ativan available as needed. Continue seizure precautions. He did become more awake but odd behavior before sedation advanced. Appreciate Neurology evaluation. Continue IV valproate. (3) Acute pancreatitis: Code(s): K85.90 - Acute pancreatitis without necrosis or infection, unspecified Status: Acute Assessment and Plan: Lipase 2453. This was checked due to fevers. Etiology unclear. LFTs normal. TG 252. Will check RUQ. Follow Lipase. TF stopped. (4) Sepsis: Code(s): A41.9 - Sepsis, unspecified organism Status: Acute Assessment and Plan: Patietn not febrile on admission but developed fevers a day or so later. BCx 06/18 growing coag-negative staph 2/2 bottles sensitive to Vanco. Peritoneal fluid also positive for coag-negative staph on 06/17 but no symptoms of SBP. Currently on vancomycin and Cefepime. BCX 06/25 NGTD. Now having low grade fevers and elevated WBC. Related to repeat intubation? Or from tunneled catheter placement? From the pancreatitis? Continue IV abx for now and follow. Repeat BCx after Abx stopped. Discussed with nephrology with plans to repeat peritoneal fluid possibly. Tunneled US and dopplers ordered. (5) Acute respiratory failure: Code(s): J96.00 - Acute respiratory failure, unspecified whether with hypoxia or hypercapnia Status: Acute Assessment and Plan: Acute respiratory failure with metabolic acidosis. ABG on admission 7.35/270 on MV. Related to prolonged down time. Stable on MV. He self-extubated requiring reintubated 06/25/21. Continue to wean off MV as he tole
--- NOTE | 2021-06-28 15:10 | WPDINTPN ---
Progress Note: A&P Assessment and Plan (1) Acute respiratory failure: Code(s): J96.00 - Acute respiratory failure, unspecified whether with hypoxia or hypercapnia Status: Acute Assessment and Plan: acute respiratory failure with metabolic acidosis - intubated on 06/18/21. ET tube was dislodged and patient was reintubated 06/25 - chest x-ray and ABGs reviewed, patient placed on ASV mode. ASV changed to 60% minute ventilation today - patient is on propofol. sedation held and Patient placed on pressure support - continue cefepime. Off vancomycin -thick secretions, on pulmozyme (2) Fever: Code(s): R50.9 - Fever, unspecified Status: Acute Assessment and Plan: patient continues to have low-grade fevers. his most recent cultures have been negative till now patient is on cefepime lipase was checked and was elevated suggestive of pancreatitis which could also explain fever duplex venous were ordered to rule out DVT will repeat blood cultures fever spikes may need additional imaging femoral central venous catheter has been removed (3) Acute pancreatitis: Code(s): K85.90 - Acute pancreatitis without necrosis or infection, unspecified Status: Acute Assessment and Plan: lipase was sent due to low-grade fever and came back 2453 hold tube feeds today recheck lipase tomorrow (4) Cardiac arrest: Code(s): I46.9 - Cardiac arrest, cause unspecified Status: Acute Assessment and Plan: patient had a cardiac arrest at home of unclear etiology, according the records initially was in asystole followed by V-tach, defibrillation, VFib, shock and ACLS protocol. ROSC was obtained, According to medical records EMS arrived at 3:22 a.m. and ROSC was achieved at 3:41 a.m.. - possible causes could be drug induced, PE, seizures. - drug screen was positive for opiates and cannabinoids - appreciate cardiology evaluation and recommendation - echocardiogram showed EF of 65-70%. Severe concentric increased left ventricular wall thickness. Grade 1 diastolic dysfunction. Mild pulmonary hypertension with RVSP of 38 mmHg. (5) Encephalopathy: Code(s): G93.40 - Encephalopathy, unspecified Status: Acute Assessment and Plan: patient presented after a cardiac arrest. He had abnormal CT head on presentation CT scan of the brain: Numerous small regions of significantly decreased attenuation in the bilateral basal ganglia, shereen and bilateral occipital white matter. The differential diagnosis includes posterior reversible encephalopathy syndrome (PRES), subacute to chronic lacunar infarcts/premature chronic small vessel ischemic disease (especially if the patient has cardiovascular risk factors), demyelinating disease such as multiple sclerosis or acute disseminated encephalomyelitis (ADEM), drug abuse, vasculitis, or reactive astrocytosis (gliosis) secondary to other nonspecific etiology EEG was done on 06/21/2021: Abnormal record due to the presence of bihemispheric theta and delta activity without any paroxysmal discharge. These abnormalities are suggestive of underlying organic or metabolic encephalopathy or postictal state. clinical correlation recommended He likely has anoxic brain injury although PRES or hypertensive encephalopathy could also be a contributor or a possibility. 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 He is also uremic and is getting dialyzed daily Repeat Head CT 06/25 1. New left centrum semiovale hypodensity, confirming acute or acute on chronic process, such as infarctions, ADEM, vasculopathy. 2. Other bilateral white matter, deep rice matter, shereen hypodensity stable or slight decrease in density. 3. No acute hemorrhage Manage blood pressure Consulted neurology Continue valproic acid Currently sedated with propofol for mechanical ventilation. sedation holiday after hemodialy
[2021-06-28] MEDS: EPOETIN ALFA-EPBX 10,000 UNITS/ML VIAL 10000 UNITS SUB-Q (17:41)
[2021-06-28] MEDS: FAMOTIDINE 20 MG TABLET PO (21:45)
--- NOTE | 2021-06-28 22:31 | PC.NURSE ---
3L removed during dialysis.
[2021-06-29] VITALS (39 sets, daily range): BP systolic 112–182; BP diastolic 75–130; PULSE 90–121; RESP 13–24; TEMP 37–37.9; O2SAT 92–99
[2021-06-29 00:29] LABS: Glucose Point of Care 75 mg/dl (65-105)
[2021-06-29] MEDS: hydrALAZINE HCL 20 MG/ML VIAL IV PUSH ×3 (00:32→10:10)
[2021-06-29] MEDS: CALCIUM ACETATE 667 MG TABLET 2001 MG FEED TUBE ×3 (03:19→20:14)
[2021-06-29 04:50] LABS: Alveolar/Arterial O2 Gradient 87.5 mmHg; Base Excess ABG 3.5 mEq/l (+/-2.0); Carboxyhemoglobin 0.5 % THb (0-2.0); HCO3 ABG 26.9 mEq/l (22.0-26.0); Methemoglobin ABG 0.2 %THb (0-1.5); Oxygen Content ABG 16.5 %vol (16.0-22.0); Oxygen Saturation ABG 96.9 % (95.0-100.0); Oxyhemoglobin 95.1 % THb (90.0-100.0); PCO2 ABG 36.6 mmHg (35.0-45.0); PO2 ABG 83.4 mmHg (80.0-100.0); PO2 FiO2 Ratio Arterial Blood 2.78 %; Reduced Hemoglobin 4.2 %THb (0-5.0); Total Hemoglobin 12.3 g/dL (12.0-18.0); pH ABG 7.484 (7.350-7.450)
[2021-06-29 04:51] LABS: Device VENTILATOR; Fractional Inspired Oxygen 35 %; Modified Allen's Test Pass; Site Drawn LEFT RADIAL
[2021-06-29 04:52] LABS: Arterial Blood Gas PEEP 5 cmH2O; Arterial Blood Gas Vent Mode ASV
[2021-06-29] MEDS: CENTRAL LINE FLUSH 10 ML IV PUSH (05:40)
[2021-06-29 05:43] LABS: Hematocrit 33.4 % (42.0-52.0); Mean Corpuscular HGB Conc 32.9 g/dl (32-36); Mean Corpuscular Hemoglobin 26.8 pg (26-34); Mean Corpuscular Volume 81.5 fl (80-100); Mean Platelet Volume 9.4 fl (7.4-10.4); Platelet Count Result 283 k/mm3 (150-375); Red Cell Distribution Width 14.2 % (11.5-14.5); White Blood Count 22.6 K/mm3 (4.5-10.0)
[2021-06-29 05:59] LABS: Alanine Aminotransferase 35 U/L (4-50); Albumin Level 2.8 g/dL (3.5-5.1); Alkaline Phosphatase 83 U/L (38-126); Anion Gap 17 mmol/L (8-16); Aspartate Amino Transferase 39 U/L (17-59); Bilirubin,Total 0.2 mg/dL (0.2-1.3); Blood Urea Nitrogen 80 mg/dL (9-20); Carbon Dioxide 24 mmol/L (22-30); Chloride 95 mmol/L (98-107); Glucose 71 mg/dL (65-110); Magnesium 2.6 mg/dL (1.6-2.3); Phosphorus 6.6 mg/dL (2.5-4.5); Potassium 4.9 mmol/L (3.4-5.0); Sodium 136 mmol/L (137-145)
[2021-06-29 06:15] LABS: Estimated CRCL calculation 14 ml/min; Estimated Glomerular Filt Rate 10
[2021-06-29 07:00] LABS: Lipase 3626 U/L (23-300)
--- NOTE | 2021-06-29 07:58 | PM.IMPN ---
Progress Note: A&P Assessment and Plan (1) Acute respiratory failure: Code(s): J96.00 - Acute respiratory failure, unspecified whether with hypoxia or hypercapnia Status: Acute Assessment and Plan: Acute respiratory failure with metabolic acidosis - intubated on 06/18/21. ET tube was dislodged and patient was reintubated 06/25 - chest x-ray and ABGs reviewed, patient placed on ASV mode. ASV changed to 60% minute ventilation today - Currently his of sedatives. Still with poor mental status and not following command. He does open his eyes spontaneously. - continue cefepime. Off vancomycin -thick secretions, on pulmozyme (2) Fever: Code(s): R50.9 - Fever, unspecified Status: Acute Assessment and Plan: patient continues to have low-grade fevers. his most recent cultures have been negative till now patient is on cefepime lipase was checked and was elevated suggestive of pancreatitis which could also explain fever duplex venous were ordered to rule out DVT will repeat blood cultures fever spikes may need additional imaging femoral central venous catheter has been removed (3) Acute pancreatitis: Code(s): K85.90 - Acute pancreatitis without necrosis or infection, unspecified Status: Acute Assessment and Plan: lipase was sent due to low-grade fever and came back 2453 hold tube feeds today recheck lipase tomorrow (4) Cardiac arrest: Code(s): I46.9 - Cardiac arrest, cause unspecified Status: Acute Assessment and Plan: patient had a cardiac arrest at home of unclear etiology, according the records initially was in asystole followed by V-tach, defibrillation, VFib, shock and ACLS protocol. ROSC was obtained, According to medical records EMS arrived at 3:22 a.m. and ROSC was achieved at 3:41 a.m.. - possible causes could be drug induced, PE, seizures. - drug screen was positive for opiates and cannabinoids - appreciate cardiology evaluation and recommendation - echocardiogram showed EF of 65-70%. Severe concentric increased left ventricular wall thickness. Grade 1 diastolic dysfunction. Mild pulmonary hypertension with RVSP of 38 mmHg. (5) Encephalopathy: Code(s): G93.40 - Encephalopathy, unspecified Status: Acute Assessment and Plan: patient presented after a cardiac arrest. He had abnormal CT head on presentation CT scan of the brain: Numerous small regions of significantly decreased attenuation in the bilateral basal ganglia, shereen and bilateral occipital white matter. The differential diagnosis includes posterior reversible encephalopathy syndrome (PRES), subacute to chronic lacunar infarcts/premature chronic small vessel ischemic disease (especially if the patient has cardiovascular risk factors), demyelinating disease such as multiple sclerosis or acute disseminated encephalomyelitis (ADEM), drug abuse, vasculitis, or reactive astrocytosis (gliosis) secondary to other nonspecific etiology EEG was done on 06/21/2021: Abnormal record due to the presence of bihemispheric theta and delta activity without any paroxysmal discharge. These abnormalities are suggestive of underlying organic or metabolic encephalopathy or postictal state. clinical correlation recommended He likely has anoxic brain injury although PRES or hypertensive encephalopathy could also be a contributor or a possibility. Unable to obtain MRI on a vented patient at this hospital but will likely not change management manager. He is also uremic Which may be contributory and is getting dialyzed daily Repeat Head CT 06/25 1. New left centrum semiovale hypodensity, confirming acute or acute on chronic process, such as infarctions, ADEM, vasculopathy. 2. Other bilateral white matter, deep rice matter, shereen hypodensity stable or slight decrease in density. 3. No acute hemorrhage Manage blood pressure neurology follow-up Continue valproic acid he is currently off
--- NOTE | 2021-06-29 08:20 | WPDINTPN ---
Progress Note: A&P Assessment and Plan (1) Acute respiratory failure: Code(s): J96.00 - Acute respiratory failure, unspecified whether with hypoxia or hypercapnia Status: Acute Assessment and Plan: acute respiratory failure with metabolic acidosis - intubated on 06/18/21. ET tube was dislodged and patient was reintubated 06/25 - chest x-ray and ABGs reviewed, patient placed on ASV mode 60% minute ventilation - patient is on propofol. sedation held and Patient placed on pressure support - continue cefepime. Off vancomycin -thick secretions, on pulmozyme (2) Fever: Code(s): R50.9 - Fever, unspecified Status: Acute Assessment and Plan: patient was having fever yesterday but afebrile overnight his most recent cultures have been negative till now patient is on cefepime lipase was checked and was elevated suggestive of pancreatitis which could also explain fever. Lipase further increase today. right upper quadrant ultrasound reviewed duplex venous lower extremity was negative and showed superficial thrombophlebitis of cephalic vein on the right side nephrology was going to resend the peritoneal fluid for analysis although patient is currently off of PD will repeat blood cultures if fever spikes may need additional imaging femoral central venous catheter has been removed (3) Acute pancreatitis: Code(s): K85.90 - Acute pancreatitis without necrosis or infection, unspecified Status: Acute Assessment and Plan: lipase was sent due to low-grade fever and came back 2453. it is further elevated today continue to hold tube feeds today recheck lipase tomorrow triglycerides were 252 (4) Cardiac arrest: Code(s): I46.9 - Cardiac arrest, cause unspecified Status: Acute Assessment and Plan: patient had a cardiac arrest at home of unclear etiology, according the records initially was in asystole followed by V-tach, defibrillation, VFib, shock and ACLS protocol. ROSC was obtained, According to medical records EMS arrived at 3:22 a.m. and ROSC was achieved at 3:41 a.m.. - possible causes could be drug induced, PE, seizures. - drug screen was positive for opiates and cannabinoids - appreciate cardiology evaluation and recommendation - echocardiogram showed EF of 65-70%. Severe concentric increased left ventricular wall thickness. Grade 1 diastolic dysfunction. Mild pulmonary hypertension with RVSP of 38 mmHg. (5) Encephalopathy: Code(s): G93.40 - Encephalopathy, unspecified Status: Acute Assessment and Plan: patient presented after a cardiac arrest. He had abnormal CT head on presentation CT scan of the brain: Numerous small regions of significantly decreased attenuation in the bilateral basal ganglia, shereen and bilateral occipital white matter. The differential diagnosis includes posterior reversible encephalopathy syndrome (PRES), subacute to chronic lacunar infarcts/premature chronic small vessel ischemic disease (especially if the patient has cardiovascular risk factors), demyelinating disease such as multiple sclerosis or acute disseminated encephalomyelitis (ADEM), drug abuse, vasculitis, or reactive astrocytosis (gliosis) secondary to other nonspecific etiology EEG was done on 06/21/2021: Abnormal record due to the presence of bihemispheric theta and delta activity without any paroxysmal discharge. These abnormalities are suggestive of underlying organic or metabolic encephalopathy or postictal state. clinical correlation recommended He likely has anoxic brain injury although PRES or hypertensive encephalopathy could also be a contributor or a possibility. 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 He is also uremic and is getting dialyzed daily Repeat Head CT 06/25 1. New left centrum semiovale hypodensity, confirming acute or acute on chronic process, such as infarct
[2021-06-29] MEDS: DORNASE ALFA INH SOLN 1 MG/ML 2.5 ML AMP 2.5 MG INHALATION (08:29)
[2021-06-29] MEDS: CEFEPIME 0.5 GM in DEXTROSE 5% IN WATER 50 ML IVPB (09:45)
[2021-06-29] MEDS: FAMOTIDINE 20 MG TABLET PO ×2 (09:49→20:14)
[2021-06-29] MEDS: ASPIRIN 81 MG CHEWABLE TABLET PO (09:49)
[2021-06-29] MEDS: HEPARIN SODIUM 5,000 UNITS/ML VIAL 5000 UNITS SUB-Q ×2 (09:50→20:14)
[2021-06-29] MEDS: LOSARTAN POTASSIUM 100 MG TABLET PO (09:52)
[2021-06-29] MEDS: amLODIPine BESYLATE 5 MG TABLET 10 MG PO (09:52)
[2021-06-29] MEDS: MINERAL OIL/WHITE PETROLATUM OINTMENT 1 APPLIC EACH EYE ×2 (09:53→20:10)
[2021-06-29] MEDS: carvediloL 12.5 MG TABLET 37.5 MG PO ×2 (10:10→17:19)
[2021-06-29] MEDS: LORazepam INJ (*CRX) 2 MG/ML VIAL IV PUSH ×2 (10:11→23:48)
--- NOTE | 2021-06-29 10:47 | PM.PNNEP ---
Progress Note: A&P Assessment and Plan (1) ESRD (end stage renal disease) on dialysis: Code(s): N18.6 - End stage renal disease; Z99.2 - Dependence on renal dialysis Status: Acute Assessment and Plan: the patient has end-stage renal disease. his BUN has come down to around 80. The patient is very catabolic I feel. He has newly diagnosed pancreatitis which may be contributing to his hypercatabolic state. He will get another dialysis today. Then he will skip tomorrow. (2) Cardiac arrest: Code(s): I46.9 - Cardiac arrest, cause unspecified Status: Acute Assessment and Plan: The patient is intubated. back on propofol (3) Hypertension: Code(s): I10 - Essential (primary) hypertension Status: Acute Assessment and Plan: His blood pressure Is climbing currently. At home, he used to be on minoxidil, clonidine, carvedilol, amlodipine, losartan, and spironolactone. currently he is onamlodipine, carvedilol and losartan and p.r.n. hydralazine. carvedilol was just increased this morning. His blood pressure is running with a systolic of 140-170. We will take more fluid off today in dialysis. So this range is okay for now. We can make more adjustments tomorrow. Consider restarting low-dose minoxidil. (4) Renal osteodystrophy: Code(s): N25.0 - Renal osteodystrophy Status: Acute Assessment and Plan: Phosphorus level is elevated. getting calcium acetate and sevelamer. Phosphorus level is coming down (5) Erythropoietin deficiency anemia: Code(s): D63.1 - Anemia in chronic kidney disease Status: Acute Assessment and Plan: Hemoglobin above 11. no need for Epogen right now (6) Gastroenteritis: Code(s): K52.9 - Noninfective gastroenteritis and colitis, unspecified Status: Acute Assessment and Plan: Treat symptomatically Subjective Date/time seen: 06/29/21 10:47 Interval history: patient is still on the ventilator. sedated Family in the room. Patient is unresponsive. Exam Narrative: WDWN in NAD on the ventilator and sedated. skin no rash or subcu nodules head ncat lungs Mildly coarse cor reg no rub or gallop abd BS+ nontender and soft ext no edema Objective Data Vital Signs Vital Signs: Vital Signs - 24 hr 06/28/21 11:30 06/28/21 12:00 06/28/21 14:00 Temperature 36.9 C 36.9 C Pulse Rate 81 87 74 Pulse Rate [Apical] Respiratory Rate 27 H 24 H Blood Pressure 132/72 152/86 H Pulse Oximetry 100 97 97 06/28/21 15:07 06/28/21 16:00 06/28/21 17:05 Temperature 37.9 C H Pulse Rate 78 82 75 Pulse Rate [Apical] Respiratory Rate 14 Blood Pressure 108/51 L Pulse Oximetry 98 96 98 06/28/21 17:21 06/28/21 18:00 06/28/21 18:45 Temperature 37.9 C H 37.0 C Pulse Rate 72 74 69 Pulse Rate [Apical] 74 Respiratory Rate 25 H 29 H Blood Pressure 140/70 151/98 H Pulse Oximetry 96 06/28/21 19:15 06/28/21 20:00 06/28/21 20:15 Temperature 36.6 C Pulse Rate 57 L 82 87 Pulse Rate [Apical] Respiratory Rate 16 Blood Pressure 123/70 150/97 H 151/92 H Pulse Oximetry 97 06/28/21 21:00 06/28/21 21:15 06/28/21 21:30 Temperature Pulse Rate 77 81 87 Pulse Rate [Apical] Respiratory Rate Blood Pressure 128/80 150/97 H 108/77 Pulse Oximetry 06/28/21 22:00 06/28/21 22:15 06/28/21 22:25 Temperature 36.8 C 36.7 C Pulse Rate 83 76 83 Pulse Rate [Apical] Respiratory Rate 12 20 Blood Pressure 151/91 H 168/97 H 151/91 H Pulse Oximetry 97 06/28/21 22:47 06/29/21 00:00 06/29/21 00:33 Temperature 37.1 C Pulse Rate 86 90 93 Pulse Rate [Apical] Respiratory Rate 14 21 H Blood Pressure 161/104 H 182/109 H Pulse Oximetry 96 99 99 06/29/21 01:45 06/29/21 02:00 06/29/21 02:35 Temperature Pulse Rate 95 100 Pulse Rate [Apical] Respiratory Rate 16 Blood Pre
[2021-06-29] MEDS: VALPROIC ACID LIQ 250 MG/5 ML ORAL SOLUTION UDC 1000 MG PO ×3 (13:08→23:26)
[2021-06-29 13:13] LABS: Glucose Point of Care 65 mg/dl (65-105)
[2021-06-29] MEDS: DEXTROSE 50% 25 GM/50 ML SYRINGE IV PUSH (13:14)
[2021-06-29 14:25] LABS: Glucose Point of Care 95 mg/dl (65-105)
[2021-06-29 17:15] LABS: Glucose Point of Care 80 mg/dl (65-105)
[2021-06-29] MEDS: ACETAMINOPHEN ELIXIR 325 MG/10.15 ML UDC 650 MG FEED TUBE (17:40)
[2021-06-29 23:38] LABS: Glucose Point of Care 90 mg/dl (65-105)
[2021-06-30] VITALS (23 sets, daily range): BP systolic 120–184; BP diastolic 75–136; PULSE 70–113; RESP 12–22; TEMP 36.7–37.7; O2SAT 94–100
[2021-06-30] MEDS: hydrALAZINE HCL 20 MG/ML VIAL IV PUSH ×2 (00:04→08:08)
[2021-06-30 04:27] LABS: Base Excess ABG 3.8 mEq/l (+/-2.0); Carboxyhemoglobin 0.6 % THb (0-2.0); Fractional Inspired Oxygen 35 %; HCO3 ABG 26.4 mEq/l (22.0-26.0); Methemoglobin ABG 0.1 %THb (0-1.5); Oxyhemoglobin 94.6 % THb (90.0-100.0); PO2 ABG 81.2 mmHg (80.0-100.0); PO2 FiO2 Ratio Arterial Blood 2.32 %; Reduced Hemoglobin 4.7 %THb (0-5.0)
[2021-06-30 04:29] LABS: Device VENTILATOR; Modified Allen's Test Pass; Site Drawn LEFT RADIAL; pH ABG 7.521 (7.350-7.450)
[2021-06-30 04:30] LABS: Arterial Blood Gas PEEP 5 cmH2O; Arterial Blood Gas Vent Mode ASV
[2021-06-30 04:39] LABS: Hematocrit 38.6 % (42.0-52.0); Hemoglobin 12.6 g/dL (14.0-18.0); Mean Corpuscular HGB Conc 32.6 g/dl (32-36); Mean Corpuscular Hemoglobin 27.3 pg (26-34); Mean Corpuscular Volume 83.5 fl (80-100); Mean Platelet Volume 10.4 fl (7.4-10.4); Platelet Count Result 279 k/mm3 (150-375); Red Blood Count 4.62 M/mm3 (4.6-6.20); Red Cell Distribution Width 14.5 % (11.5-14.5); White Blood Count 19.4 K/mm3 (4.5-10.0)
[2021-06-30] MEDS: VALPROIC ACID LIQ 250 MG/5 ML ORAL SOLUTION UDC 1000 MG PO ×3 (05:24→18:09)
[2021-06-30] MEDS: CALCIUM ACETATE 667 MG TABLET 2001 MG FEED TUBE ×3 (05:24→20:22)
[2021-06-30 05:39] LABS: Glucose Point of Care 85 mg/dl (65-105)
[2021-06-30 06:21] LABS: Alanine Aminotransferase 31 U/L (4-50); Alkaline Phosphatase 69 U/L (38-126); Anion Gap 17 mmol/L (8-16); Aspartate Amino Transferase 39 U/L (17-59); Bilirubin,Total 0.4 mg/dL (0.2-1.3); Blood Urea Nitrogen 74 mg/dL (9-20); Calcium 9.1 mg/dL (8.4-10.2); Carbon Dioxide 23 mmol/L (22-30); Chloride 97 mmol/L (98-107); Glucose 90 mg/dL (65-110); Magnesium 2.8 mg/dL (1.6-2.3); Potassium 5.3 mmol/L (3.4-5.0); Sodium 137 mmol/L (137-145)
[2021-06-30 06:56] LABS: Estimated CRCL calculation 15 ml/min; Estimated Glomerular Filt Rate 11
[2021-06-30] MEDS: carvediloL 12.5 MG TABLET 37.5 MG PO ×2 (08:01→18:09)
[2021-06-30] MEDS: ASPIRIN 81 MG CHEWABLE TABLET PO (08:01)
[2021-06-30] MEDS: LOSARTAN POTASSIUM 100 MG TABLET PO (08:02)
[2021-06-30] MEDS: SEVELAMER CARBONATE 800 MG TABLET 1600 MG PO ×3 (08:02→18:08)
[2021-06-30] MEDS: amLODIPine BESYLATE 5 MG TABLET 10 MG PO (08:03)
[2021-06-30] MEDS: FAMOTIDINE 20 MG TABLET PO ×2 (08:03→20:22)
[2021-06-30] MEDS: HEPARIN SODIUM 5,000 UNITS/ML VIAL 5000 UNITS SUB-Q ×2 (08:03→20:22)
[2021-06-30] MEDS: MINERAL OIL/WHITE PETROLATUM OINTMENT 1 APPLIC EACH EYE ×2 (08:04→20:22)
[2021-06-30] MEDS: CEFEPIME 0.5 GM in DEXTROSE 5% IN WATER 50 ML IVPB (08:22)
[2021-06-30 08:45] LABS: Lipase 5470 U/L (23-300)
--- NOTE | 2021-06-30 10:19 | PM.PNNEP ---
Progress Note: A&P Assessment and Plan (1) ESRD (end stage renal disease) on dialysis: Code(s): N18.6 - End stage renal disease; Z99.2 - Dependence on renal dialysis Status: Acute Assessment and Plan: the patient has end-stage renal disease. BUN is in the 70s now. Will do dialysis tomorrow (2) Cardiac arrest: Code(s): I46.9 - Cardiac arrest, cause unspecified Status: Acute Assessment and Plan: The patient is intubated. unfortunately, mental status still very poor (3) Hypertension: Code(s): I10 - Essential (primary) hypertension Status: Acute Assessment and Plan: His blood pressure is ranging from the 120s to 170s. At home, he used to be on minoxidil, clonidine, carvedilol, amlodipine, losartan, and spironolactone. currently he is on amlodipine, carvedilol and losartan and p.r.n. hydralazine. Continue current medication (4) Renal osteodystrophy: Code(s): N25.0 - Renal osteodystrophy Status: Acute Assessment and Plan: Phosphorus level is elevated. getting calcium acetate and sevelamer. Phosphorus level is coming down (5) Erythropoietin deficiency anemia: Code(s): D63.1 - Anemia in chronic kidney disease Status: Acute Assessment and Plan: Hemoglobin above 11. no need for Epogen right now (6) Gastroenteritis: Code(s): K52.9 - Noninfective gastroenteritis and colitis, unspecified Status: Acute Assessment and Plan: Treat symptomatically Subjective Date/time seen: 06/30/21 10:19 Interval history: patient is still on the ventilator. off the propofol. Eyes open somewhat but does not make eye contact and does not follow any commands, for me or for the nurses Exam Narrative: WDWN in NAD on the ventilator and sedated. skin no rash or subcu nodules head ncat lungs Mildly coarse cor reg no rub or gallop abd BS+ nontender and soft ext no edema Objective Data Vital Signs Vital Signs: Vital Signs - 24 hr 06/29/21 11:04 06/29/21 12:00 06/29/21 14:00 Temperature 37.1 C 37.3 C Pulse Rate 100 96 95 Respiratory Rate 16 16 Blood Pressure 143/83 H 144/86 H Pulse Oximetry 97 98 98 06/29/21 14:31 06/29/21 14:36 06/29/21 14:45 Temperature Pulse Rate 97 96 95 Respiratory Rate Blood Pressure 134/82 133/78 Pulse Oximetry 98 06/29/21 15:00 06/29/21 15:15 06/29/21 15:30 Temperature Pulse Rate 104 H 116 H 117 H Respiratory Rate Blood Pressure 143/93 H 146/103 H 170/103 H Pulse Oximetry 06/29/21 15:45 06/29/21 16:00 06/29/21 16:15 Temperature 37.6 C Pulse Rate 117 H 96 117 H Respiratory Rate 24 H Blood Pressure 173/130 H 135/85 182/94 H Pulse Oximetry 98 06/29/21 16:31 06/29/21 16:45 06/29/21 17:00 Temperature Pulse Rate 116 H 116 H 109 H Respiratory Rate Blood Pressure 137/99 H 133/99 H 112/79 Pulse Oximetry 06/29/21 17:15 06/29/21 17:19 06/29/21 17:31 Temperature Pulse Rate 113 H 112 H 121 H Respiratory Rate Blood Pressure 122/94 H 129/108 H Pulse Oximetry 06/29/21 17:40 06/29/21 17:59 06/29/21 18:00 Temperature 37.9 C H 37.8 C H Pulse Rate 112 H 112 H Respiratory Rate 17 Blood Pressure 120/75 Pulse Oximetry 99 95 06/29/21 18:15 06/29/21 18:40 06/29/21 20:00 Temperature 37.9 C H 37.9 C H 37.7 C H Pulse Rate 110 H 100 Respiratory Rate 23 H 20 Blood Pressure 119/94 H 128/90 Pulse Oximetry 98 06/29/21 20:04 06/29/21 22:00 06/29/21 22:49 Temperature 37.6 C H Pulse Rate 96 101 H 99 Respiratory Rate 17 Blood Pressure 151/109 H Pulse Oximetry 98 98 95 06/30/21 00:00 06/30/21 01:31 06/30/21 02:00 Temperature 37.6 C 37.7 C H Pulse Rate 111 H 99 95 Respiratory Rate 22 H 16 Blood Pressure 184/136 H 151/114 H Pulse Oximetry 97 94 96 06/30/21 04:00 06/30/21 04:29 06/30/21 06:00 Temperature 37.6 C H 37.2 C Pul
--- NOTE | 2021-06-30 11:05 | WPDINTPN ---
Progress Note: A&P Assessment and Plan (1) Acute respiratory failure: Code(s): J96.00 - Acute respiratory failure, unspecified whether with hypoxia or hypercapnia Status: Acute Assessment and Plan: acute respiratory failure with metabolic acidosis - intubated on 06/18/21. ET tube was dislodged and patient was reintubated 06/25 - chest x-ray and ABGs reviewed, patient placed on ASV mode 60% minute ventilation - off sedation at this time and on ASV mode - continue cefepime. Off vancomycin -thick secretions, on pulmozyme - today is day 12 of intubation. Patient's encephalopathy precludes extubation at this time. I spoke to patient's mother at bedside regarding options of tracheostomy and PEG. And they are agreeable if needed. I will continue trying to wean over next couple days. But it appears the patient likely needs tracheostomy due to failure to wean (2) Fever: Code(s): R50.9 - Fever, unspecified Status: Acute Assessment and Plan: low-grade fevers but his most recent cultures have been negative till now patient is on cefepime which she will complete a course of 8/2 lipase elevated confirming pancreatitis. the level has continue to increase. will check CT chest and abdomen duplex venous lower extremity was negative and showed superficial thrombophlebitis of cephalic vein on the right side nephrology was going to resend the peritoneal fluid for analysis although patient is currently off of PD will repeat blood cultures if fever spikes femoral central venous catheter has been removed (3) Acute pancreatitis: Code(s): K85.90 - Acute pancreatitis without necrosis or infection, unspecified Status: Acute Assessment and Plan: lipase was sent due to low-grade fever and came back 2453. it is further elevated today continue to hold tube feeds today check CT abdomen pelvis triglycerides were 252 (4) Cardiac arrest: Code(s): I46.9 - Cardiac arrest, cause unspecified Status: Acute Assessment and Plan: patient had a cardiac arrest at home of unclear etiology, according the records initially was in asystole followed by V-tach, defibrillation, VFib, shock and ACLS protocol. ROSC was obtained, According to medical records EMS arrived at 3:22 a.m. and ROSC was achieved at 3:41 a.m.. - possible causes could be drug induced, seizures. - drug screen was positive for opiates and cannabinoids - appreciate cardiology evaluation and recommendation - echocardiogram showed EF of 65-70%. Severe concentric increased left ventricular wall thickness. Grade 1 diastolic dysfunction. Mild pulmonary hypertension with RVSP of 38 mmHg. (5) Encephalopathy: Code(s): G93.40 - Encephalopathy, unspecified Status: Acute Assessment and Plan: patient presented after a cardiac arrest. He had abnormal CT head on presentation CT scan of the brain: Numerous small regions of significantly decreased attenuation in the bilateral basal ganglia, shereen and bilateral occipital white matter. The differential diagnosis includes posterior reversible encephalopathy syndrome (PRES), subacute to chronic lacunar infarcts/premature chronic small vessel ischemic disease (especially if the patient has cardiovascular risk factors), demyelinating disease such as multiple sclerosis or acute disseminated encephalomyelitis (ADEM), drug abuse, vasculitis, or reactive astrocytosis (gliosis) secondary to other nonspecific etiology EEG was done on 06/21/2021: Abnormal record due to the presence of bihemispheric theta and delta activity without any paroxysmal discharge. These abnormalities are suggestive of underlying organic or metabolic encephalopathy or postictal state. clinical correlation recommended He likely has anoxic brain injury although PRES or hypertensive encephalopathy could also be a contributor or a possibility. Unable to obtain MRI on a vented patient at this
[2021-06-30 12:36] LABS: Glucose Point of Care 79 mg/dl (65-105)
--- NOTE | 2021-06-30 15:02 | PM.IMPN ---
Progress Note: A&P Assessment and Plan (1) Acute respiratory failure: Code(s): J96.00 - Acute respiratory failure, unspecified whether with hypoxia or hypercapnia Status: Acute Assessment and Plan: Acute respiratory failure with metabolic acidosis - intubated on 06/18/21. ET tube was dislodged and patient was reintubated 06/25 - chest x-ray and ABGs reviewed, patient placed on ASV mode with 60%. He cannot be extubated because of his mental status. There is concern that he may not protect his airway. - Currently off sedatives. Still with poor mental status and not following command. He does open his eyes spontaneously. He is not moving his right upper and lower extremity. - He is currently on cefepime and will finish the dose tomorrow. He was initially on vancomycin as well which was stopped earlier. -thick secretions, on pulmozyme (2) Fever: Code(s): R50.9 - Fever, unspecified Status: Acute Assessment and Plan: patient continues to have low-grade fevers. his most recent cultures have been negative till now patient is on cefepime and will finish a course of 10 days tomorrow. He was on vancomycin earlier which has been stopped already. lipase was checked and was elevated suggestive of pancreatitis which could also explain fever duplex venous were ordered to rule out DVT. Upper extremity DVT in the right cephalic vein. No DVT noticed in the lower extremity. will repeat blood cultures If with fever spikes may need additional imaging femoral central venous catheter has been removed (3) Acute pancreatitis: Code(s): K85.90 - Acute pancreatitis without necrosis or infection, unspecified Status: Acute Assessment and Plan: lipase was sent due to low-grade fever and came back 2453 hold tube feeds And resume when feasible. (4) Cardiac arrest: Code(s): I46.9 - Cardiac arrest, cause unspecified Status: Acute Assessment and Plan: patient had a cardiac arrest at home of unclear etiology, according the records initially was in asystole followed by V-tach, defibrillation, VFib, shock and ACLS protocol. ROSC was obtained, According to medical records EMS arrived at 3:22 a.m. and ROSC was achieved at 3:41 a.m.. - possible causes could be drug induced, PE, seizures. - drug screen was positive for opiates and cannabinoids - appreciate cardiology evaluation and recommendation - echocardiogram showed EF of 65-70%. Severe concentric increased left ventricular wall thickness. Grade 1 diastolic dysfunction. Mild pulmonary hypertension with RVSP of 38 mmHg. (5) Encephalopathy: Code(s): G93.40 - Encephalopathy, unspecified Status: Acute Assessment and Plan: patient presented after a cardiac arrest. He had abnormal CT head on presentation CT scan of the brain: Numerous small regions of significantly decreased attenuation in the bilateral basal ganglia, shereen and bilateral occipital white matter. The differential diagnosis includes posterior reversible encephalopathy syndrome (PRES), subacute to chronic lacunar infarcts/premature chronic small vessel ischemic disease (especially if the patient has cardiovascular risk factors), demyelinating disease such as multiple sclerosis or acute disseminated encephalomyelitis (ADEM), drug abuse, vasculitis, or reactive astrocytosis (gliosis) secondary to other nonspecific etiology EEG was done on 06/21/2021: Abnormal record due to the presence of bihemispheric theta and delta activity without any paroxysmal discharge. These abnormalities are suggestive of underlying organic or metabolic encephalopathy or postictal state. clinical correlation recommended He likely has anoxic brain injury although PRES or hypertensive encephalopathy could also be a contributor or a possibility. Unable to obtain MRI on a vented patient at this hospital but will likely not commodity management specialist. He is also uremic And was star
[2021-06-30 18:13] LABS: Glucose Point of Care 74 mg/dl (65-105)
[2021-07-01] VITALS (28 sets, daily range): BP systolic 139–181; BP diastolic 81–122; PULSE 69–86; RESP 10–24; TEMP 35.7–37; O2SAT 91–100
[2021-07-01] MEDS: VALPROIC ACID LIQ 250 MG/5 ML ORAL SOLUTION UDC 1000 MG PO ×4 (00:21→16:38)
[2021-07-01 00:42] LABS: Glucose Point of Care 77 mg/dl (65-105)
[2021-07-01] MEDS: hydrALAZINE HCL 20 MG/ML VIAL IV PUSH ×2 (02:15→06:37)
[2021-07-01] MEDS: CALCIUM ACETATE 667 MG TABLET 2001 MG FEED TUBE ×3 (04:02→20:42)
[2021-07-01 04:50] LABS: Alveolar/Arterial O2 Gradient 85.8 mmHg; Base Excess ABG -0.5 mEq/l (+/-2.0); Carboxyhemoglobin 0.3 % THb (0-2.0); Fractional Inspired Oxygen 35 %; HCO3 ABG 23.4 mEq/l (22.0-26.0); Methemoglobin ABG 0.2 %THb (0-1.5); Oxygen Content ABG 16.1 %vol (16.0-22.0); Oxygen Saturation ABG 98.5 % (95.0-100.0); Oxyhemoglobin 96.9 % THb (90.0-100.0); PCO2 ABG 35.6 mmHg (35.0-45.0); PO2 ABG 122.4 mmHg (80.0-100.0); Reduced Hemoglobin 2.6 %THb (0-5.0); Total Hemoglobin 11.7 g/dL (12.0-18.0); pH ABG 7.435 (7.350-7.450)
[2021-07-01 04:51] LABS: Hematocrit 31.7 % (42.0-52.0); Hemoglobin 10.5 g/dL (14.0-18.0); Mean Corpuscular HGB Conc 33.1 g/dl (32-36); Mean Corpuscular Hemoglobin 27.2 pg (26-34); Mean Corpuscular Volume 82.1 fl (80-100); Platelet Count Result 241 k/mm3 (150-375); Red Blood Count 3.86 M/mm3 (4.6-6.20); Red Cell Distribution Width 14.2 % (11.5-14.5); White Blood Count 18.5 K/mm3 (4.5-10.0)
[2021-07-01 04:51] LABS: Device VENTILATOR; Modified Allen's Test Pass; Site Drawn RIGHT RADIAL
[2021-07-01 04:52] LABS: Arterial Blood Gas PEEP 5 cmH2O; Arterial Blood Gas Vent Mode ASV
[2021-07-01 05:20] LABS: Triglycerides 258 mg/dL (<150)
[2021-07-01 05:24] LABS: Alanine Aminotransferase 26 U/L (4-50); Albumin Level 2.9 g/dL (3.5-5.1); Alkaline Phosphatase 70 U/L (38-126); Anion Gap 21 mmol/L (8-16); Aspartate Amino Transferase 27 U/L (17-59); Bilirubin,Total 0.3 mg/dL (0.2-1.3); Blood Urea Nitrogen 109 mg/dL (9-20); Carbon Dioxide 22 mmol/L (22-30); Chloride 91 mmol/L (98-107); Glucose 82 mg/dL (65-110); Magnesium 3.1 mg/dL (1.6-2.3); Potassium 4.8 mmol/L (3.4-5.0); Sodium 134 mmol/L (137-145)
[2021-07-01 06:44] LABS: Glucose Point of Care 70 mg/dl (65-105)
[2021-07-01 07:17] LABS: Estimated CRCL calculation 10 ml/min; Estimated Glomerular Filt Rate 7
[2021-07-01] MEDS: carvediloL 12.5 MG TABLET 37.5 MG PO ×2 (08:10→16:37)
[2021-07-01] MEDS: LOSARTAN POTASSIUM 100 MG TABLET PO (08:10)
--- NOTE | 2021-07-01 09:09 | WPDINTPN ---
Progress Note: A&P Assessment and Plan (1) Acute respiratory failure: Code(s): J96.00 - Acute respiratory failure, unspecified whether with hypoxia or hypercapnia Status: Acute Assessment and Plan: acute respiratory failure with metabolic acidosis - intubated on 06/18/21. ET tube was dislodged and patient was reintubated 06/25 - chest x-ray and ABGs reviewed, patient was on ASV mode 60% minute ventilation - I have placed patient on pressure support ventilation today. Will consider extubation if he does well - will complete a course of cefepime today . Off vancomycin -thick secretions, on pulmozyme - today is day 13 of intubation. Patient's mental status appears much improved today. patient is on trial right now and will try to extubate if successful. if patient is not extubated or gets reintubated he will need tracheostomy. yesterday, I spoke to patient's mother at bedside regarding options of tracheostomy and PEG. And they are agreeable if needed. (2) Fever: Code(s): R50.9 - Fever, unspecified Status: Acute Assessment and Plan: low-grade fevers but his most recent cultures have been negative till now patient is on cefepime which she will complete a course of 8/2 lipase elevated confirming pancreatitis. the level has continue to increase. CT chest and abdomen ordered and pending duplex venous lower extremity was negative and showed superficial thrombophlebitis of cephalic vein on the right side nephrology was going to resend the peritoneal fluid for analysis although patient is currently off of PD will repeat blood cultures if fever spikes femoral central venous catheter has been removed (3) Acute pancreatitis: Code(s): K85.90 - Acute pancreatitis without necrosis or infection, unspecified Status: Acute Assessment and Plan: lipase was sent due to low-grade fever and came back 2453. it is further elevated today continue to hold tube feeds today CT abdomen pelvis is pending triglycerides were 252 (4) Cardiac arrest: Code(s): I46.9 - Cardiac arrest, cause unspecified Status: Acute Assessment and Plan: patient had a cardiac arrest at home of unclear etiology, according the records initially was in asystole followed by V-tach, defibrillation, VFib, shock and ACLS protocol. ROSC was obtained, According to medical records EMS arrived at 3:22 a.m. and ROSC was achieved at 3:41 a.m.. - possible causes could be drug induced, seizures. - drug screen was positive for opiates and cannabinoids - appreciate cardiology evaluation and recommendation - echocardiogram showed EF of 65-70%. Severe concentric increased left ventricular wall thickness. Grade 1 diastolic dysfunction. Mild pulmonary hypertension with RVSP of 38 mmHg. (5) Encephalopathy: Code(s): G93.40 - Encephalopathy, unspecified Status: Acute Assessment and Plan: patient presented after a cardiac arrest. He had abnormal CT head on presentation CT scan of the brain: Numerous small regions of significantly decreased attenuation in the bilateral basal ganglia, shereen and bilateral occipital white matter. The differential diagnosis includes posterior reversible encephalopathy syndrome (PRES), subacute to chronic lacunar infarcts/premature chronic small vessel ischemic disease (especially if the patient has cardiovascular risk factors), demyelinating disease such as multiple sclerosis or acute disseminated encephalomyelitis (ADEM), drug abuse, vasculitis, or reactive astrocytosis (gliosis) secondary to other nonspecific etiology EEG was done on 06/21/2021: Abnormal record due to the presence of bihemispheric theta and delta activity without any paroxysmal discharge. These abnormalities are suggestive of underlying organic or metabolic encephalopathy or postictal state. clinical correlation recommended He likely has anoxic brain injury although PRES or hyper
[2021-07-01] MEDS: LABETALOL HCL INJ 100 MG/20 ML VIAL 20 MG IV PUSH ×3 (09:20→22:15)
[2021-07-01 09:29] LABS: Lipase 6411 U/L (23-300)
--- NOTE | 2021-07-01 09:54 | PM.IMPN ---
Progress Note: A&P Assessment and Plan (1) Cardiac arrest with ventricular fibrillation: Code(s): I46.9 - Cardiac arrest, cause unspecified; I49.01 - Ventricular fibrillation Status: Acute Assessment and Plan: EMS called at 0314 and they arrived at 0322 and ROSC achieved at 0341. Etiology of the cardiac arrest is unclear but patient was in VFib arrest requiring 6 shocks and Epinephrine. No significant electrolyte abnormalities to explain this event. He does have metabolic acidosis but lactic 9.0 to suggest this might be related to the cardiac arrest and not the etiology of his arrest. Etiology of the malignant arrhythmias unknown. UDS positive opiates, cannabinoids. Echo with EF 65-70% with Grade I DD. He does have episodes of VTach still and Coreg advanced to 37.5mg BID per Cardiology recommendations. Continue telemetry monitoring. Continue aspirin. Appreciate cardiology evaluation. Appreciate utility tech input. (2) Seizure: Code(s): R56.9 - Unspecified convulsions Status: Acute Assessment and Plan: EMS called at 0314 and they arrived at 0322 and ROSC achieved at 0341. Patient developed seizures and VPA started. CT brain 06/18 showing numerous small regions of significantly decreased attenuation in the bilateral basal ganglia, shereen and bilateral occipital white matter. The differential diagnosis includes posterior reversible encephalopathy syndrome (PRES), subacute to chronic lacunar infarcts/premature chronic small vessel ischemic disease (especially if the patient has cardiovascular risk factors), demyelinating disease such as multiple sclerosis or acute disseminated encephalomyelitis (ADEM), drug abuse, vasculitis, or reactive astrocytosis (gliosis) secondary to other nonspecific etiology. CT brain 06/25 showing new left centrum semiovale hypodensity, confirming acute or acute on chronic process, such as infarctions, ADEM, vasculopathy. Other bilateral white matter, deep rice matter, shereen hypodensity stable or slight decrease in density. EEG was done on 06/21 showing Abnormal record due to the presence of bihemispheric theta and delta activity without any paroxysmal discharge. These abnormalities are suggestive of underlying organic or metabolic encephalopathy or postictal state. clinical correlation recommended. No further seizures. He is more awake but odd behavior and intermittently follows commands. Appreciate Neurology evaluation. Continue IV valproate. Ativan available as needed. Continue seizure precautions. (3) Acute pancreatitis: Code(s): K85.90 - Acute pancreatitis without necrosis or infection, unspecified Status: Acute Assessment and Plan: Lipase 2453. This was checked due to fevers. Etiology unclear. RUQ showing no GS and normal-appearing pancreas aside from mildly dilated main pancreatic duct with no peripancreatic fluid collections. LFTs normal. TG 252. TF stopped. Lipase climbing daily to 6411 today. Retained GS? Consider CT A/P. (4) Sepsis: Code(s): A41.9 - Sepsis, unspecified organism Status: Acute Assessment and Plan: Patietn not febrile on admission but developed fevers a day or so later. BCx 06/18 growing coag-negative staph 2/2 bottles sensitive to Vanco. Peritoneal fluid also positive for coag-negative staph on 06/17 but no symptoms of SBP with only 60 WBC in the fluid. Treated with vancomycin and Cefepime. BCX 06/25 NGTD. Now having low grade fevers and elevated WBC. RUQ showing GB wall thickening and small amount of perihepatic ascites. Fevers and elevated WBC related to repeat intubation/aspiration? Or from tunneled catheter placement? From the pancreatitis? Acute Cholecystitis? Continue Cefepime. Monitor fever curve which is improving (5) Acute respiratory failure: Code(s): J96.00 - Acute respiratory failure, unspecified whether with hypoxia or hypercapnia Status: Acute Assessment and Plan: Acute respirato
--- NOTE | 2021-07-01 10:55 | PM.PNNEP ---
Progress Note: A&P Assessment and Plan (1) ESRD (end stage renal disease) on dialysis: Code(s): N18.6 - End stage renal disease; Z99.2 - Dependence on renal dialysis Status: Acute Assessment and Plan: the patient has end-stage renal disease. BUN 109 before treatment this morning. I think we should be able to do 3 times a week dialysis. We will see how he looks on Thursday (2) Cardiac arrest: Code(s): I46.9 - Cardiac arrest, cause unspecified Status: Acute Assessment and Plan: The patient is intubated. unfortunately, mental status still very poor possible hypoxic encephalopathy (3) Hypertension: Code(s): I10 - Essential (primary) hypertension Status: Acute Assessment and Plan: His blood pressure is ranging from the 120s to 170s. At home, he used to be on minoxidil, clonidine, carvedilol, amlodipine, losartan, and spironolactone. currently he is on amlodipine, carvedilol and losartan and p.r.n. hydralazine. we will see how he does after removing the fluid today. If the blood pressure still high consider minoxidil 2.5 b.i.d. (4) Renal osteodystrophy: Code(s): N25.0 - Renal osteodystrophy Status: Acute Assessment and Plan: Phosphorus level is elevated. getting calcium acetate and sevelamer. Phosphorus level is coming down slowly (5) Erythropoietin deficiency anemia: Code(s): D63.1 - Anemia in chronic kidney disease Status: Acute Assessment and Plan: Hemoglobin above 11. no need for Epogen right now (6) Gastroenteritis: Code(s): K52.9 - Noninfective gastroenteritis and colitis, unspecified Status: Acute Assessment and Plan: Treat symptomatically Subjective Date/time seen: 07/01/21 10:55 Interval history: patient is still on the ventilator. off the propofol. eyes were closed when I walked in the room. I called his name and he opened his eyes but did not fixated on the examiner. He does not follow commands he is on dialysis now. He is tolerating his treatment well. His blood pressure is running 100-120. We are taking some fluid off. He was seen at 10:25a.m. Exam Narrative: WDWN in NAD on the ventilator and sedated. skin no rash or subcu nodules head ncat lungs Mildly coarse bilaterally cor reg no rub or gallop abd BS+ nontender and soft ext no edema Objective Data Vital Signs Vital Signs: Vital Signs - 24 hr 06/30/21 12:00 06/30/21 14:00 06/30/21 14:12 Temperature 36.9 C Pulse Rate 84 89 Respiratory Rate 20 19 Blood Pressure 136/75 137/91 H Pulse Oximetry 98 97 99 06/30/21 16:00 06/30/21 16:35 06/30/21 18:00 Temperature 36.7 C Pulse Rate 80 87 77 Respiratory Rate 14 12 Blood Pressure 143/90 H 129/84 Pulse Oximetry 98 100 98 06/30/21 18:09 06/30/21 19:54 06/30/21 20:00 Temperature 36.8 C Pulse Rate 74 70 84 Respiratory Rate 18 Blood Pressure 143/92 H Pulse Oximetry 99 99 06/30/21 22:00 06/30/21 23:33 07/01/21 00:00 Temperature 36.7 C 36.7 C Pulse Rate 82 85 82 Respiratory Rate 15 16 Blood Pressure 154/106 H 173/118 H Pulse Oximetry 97 98 98 07/01/21 00:30 07/01/21 02:00 07/01/21 02:36 Temperature 36.6 C Pulse Rate 72 79 Respiratory Rate 12 Blood Pressure 155/113 H 179/121 H Pulse Oximetry 98 99 07/01/21 04:00 07/01/21 04:36 07/01/21 06:00 Temperature 36.4 C L 35.9 C L Pulse Rate 79 79 76 Respiratory Rate 17 11 L Blood Pressure 179/117 H 171/97 H Pulse Oximetry 99 97 97 07/01/21 08:00 07/01/21 08:10 07/01/21 08:25 Temperature 35.7 C L Pulse Rate 71 73 71 Respiratory Rate 10 L Blood Pressure 181/110 H Pulse Oximetry 98 97 07/01/21 09:20 07/01/21 10:00 Temperature 35.9 C L Pulse Rate 73 73 Respiratory Rate 18 Blood Pressure 163/116 H Pulse Oximetry 98 Intake/Output Intake/Output: Intake & Output 06/28/21 06/29/21 0
--- NOTE | 2021-07-01 11:04 | PCDIET ---
Nutrition Follow-Up Complete: Nutrition Diagnosis: Inadequate oral food intake related to mechanical ventilation secondary to cardiac arrest as evidenced by NPO diet order. Nutrition Goal: Meet estimated nutritional needs. Goal not met. Tube feedings remain on hold. Lipase further elevated today. If unable to resume enteral feedings in the next few days, parenteral nutrition will be required. Last recorded weight is 74 kg which is down from last review. -I/O. Bowel Motility: FMS remains in place with minimal output documented. Labs Reviewed: WBC (18.5), RBC (3.86), Hgb (10.5), Hct (31.7), BUN (109), Cr (10.10), Na (134), Alb (2.9), TG (258), Lipase (6411) Meds Noted: Norvasc, Cefepime, Hydralazine, Phoslo, Coreg, Retacrit, Pepcid, Cozaar, Renvela, Valproic Acid Additional Notes: No documented skin breakdown. Will continue to monitor with same goal. Nutrition Monitoring and Evaluation: Follow up in 3 days.
[2021-07-01 12:10] LABS: Glucose Point of Care 81 mg/dl (65-105)
[2021-07-01] MEDS: ASPIRIN 81 MG CHEWABLE TABLET PO (12:55)
[2021-07-01] MEDS: amLODIPine BESYLATE 5 MG TABLET 10 MG PO (12:55)
[2021-07-01] MEDS: HEPARIN SODIUM 5,000 UNITS/ML VIAL 5000 UNITS SUB-Q ×2 (12:56→20:42)
[2021-07-01] MEDS: SEVELAMER CARBONATE 800 MG TABLET 1600 MG PO ×2 (12:56→16:37)
[2021-07-01] MEDS: FAMOTIDINE 20 MG TABLET PO ×2 (12:56→20:42)
[2021-07-01] MEDS: CEFEPIME 0.5 GM in DEXTROSE 5% IN WATER 50 ML IVPB (13:09)
[2021-07-01] MEDS: EPOETIN ALFA-EPBX 10,000 UNITS/ML VIAL 10000 UNITS SUB-Q (13:10)
[2021-07-01 14:09] LABS: Alveolar/Arterial O2 Gradient 69.5 mmHg; Base Excess ABG 1.8 mEq/l (+/-2.0); Fractional Inspired Oxygen 35 %; HCO3 ABG 25.1 mEq/l (22.0-26.0); Oxygen Content ABG 16.8 %vol (16.0-22.0); Oxygen Saturation ABG 98.9 % (95.0-100.0); Oxyhemoglobin 97.5 % THb (90.0-100.0); PO2 ABG 139.4 mmHg (80.0-100.0); PO2 FiO2 Ratio Arterial Blood 3.98 %; Total Hemoglobin 12.1 g/dL (12.0-18.0); pH ABG 7.474 (7.350-7.450)
[2021-07-01 14:10] LABS: Device VENTILATOR; Modified Allen's Test Pass; Site Drawn RIGHT RADIAL
[2021-07-01 14:11] LABS: Arterial Blood Gas PEEP 5 cmH2O; Arterial Blood Gas Pressure Support 5 cmH2O; Arterial Blood Gas Vent Mode SPONTANEOUS
[2021-07-01 16:39] LABS: Glucose Point of Care 100 mg/dl (65-105)
[2021-07-02] VITALS (19 sets, daily range): BP systolic 133–179; BP diastolic 81–133; PULSE 70–88; RESP 17–27; TEMP 36.3–36.9; O2SAT 92–96
[2021-07-02 00:34] LABS: Glucose Point of Care 80 mg/dl (65-105)
[2021-07-02] MEDS: VALPROIC ACID LIQ 250 MG/5 ML ORAL SOLUTION UDC 1000 MG PO ×5 (00:36→23:36)
[2021-07-02] MEDS: LABETALOL HCL INJ 100 MG/20 ML VIAL 20 MG IV PUSH (03:04)
[2021-07-02] MEDS: CALCIUM ACETATE 667 MG TABLET 2001 MG FEED TUBE (04:06)
[2021-07-02 05:56] LABS: Alveolar/Arterial O2 Gradient 32.9 mmHg; Base Excess ABG 1.7 mEq/l (+/-2.0); Carboxyhemoglobin 0.2 % THb (0-2.0); Fractional Inspired Oxygen 21 %; HCO3 ABG 26.2 mEq/l (22.0-26.0); Methemoglobin ABG 0.1 %THb (0-1.5); Oxygen Content ABG 15.3 %vol (16.0-22.0); Oxyhemoglobin 91.8 % THb (90.0-100.0); PCO2 ABG 40.8 mmHg (35.0-45.0); PO2 FiO2 Ratio Arterial Blood 3.24 %; Reduced Hemoglobin 7.9 %THb (0-5.0); Total Hemoglobin 11.8 g/dL (12.0-18.0); pH ABG 7.426 (7.350-7.450)
[2021-07-02 05:57] LABS: Device ROOM AIR; Modified Allen's Test Pass; Site Drawn RIGHT RADIAL
[2021-07-02 06:07] LABS: Hematocrit 35.5 % (42.0-52.0); Hemoglobin 11.5 g/dL (14.0-18.0); Mean Corpuscular HGB Conc 32.4 g/dl (32-36); Mean Corpuscular Hemoglobin 27.1 pg (26-34); Mean Corpuscular Volume 83.5 fl (80-100); Mean Platelet Volume 10.1 fl (7.4-10.4); Platelet Count Result 248 k/mm3 (150-375); Red Blood Count 4.25 M/mm3 (4.6-6.20); White Blood Count 18.8 K/mm3 (4.5-10.0)
[2021-07-02 06:33] LABS: Alanine Aminotransferase 24 U/L (4-50); Albumin Level 3.1 g/dL (3.5-5.1); Alkaline Phosphatase 72 U/L (38-126); Anion Gap 18 mmol/L (8-16); Aspartate Amino Transferase 32 U/L (17-59); Bilirubin,Total 0.4 mg/dL (0.2-1.3); Blood Urea Nitrogen 82 mg/dL (9-20); Carbon Dioxide 23 mmol/L (22-30); Chloride 95 mmol/L (98-107); Estimated CRCL calculation 13 ml/min; Estimated Glomerular Filt Rate 10; Glucose 67 mg/dL (65-110); Magnesium 2.6 mg/dL (1.6-2.3); Potassium 5.6 mmol/L (3.4-5.0); Sodium 136 mmol/L (137-145)
[2021-07-02 06:35] LABS: Glucose Point of Care 74 mg/dl (65-105)
[2021-07-02 07:18] LABS: Lipase 6449 U/L (23-300)
[2021-07-02 07:36] LABS: Creatine Kinase 143 U/L (55-170)
[2021-07-02] MEDS: SODIUM POLYSTYRENE SULFONONATE 15 GM/60 ML BTL 30 GM FEED TUBE (08:46)
[2021-07-02] MEDS: carvediloL 12.5 MG TABLET 37.5 MG PO ×2 (08:47→18:05)
[2021-07-02] MEDS: ASPIRIN 81 MG CHEWABLE TABLET PO (08:47)
[2021-07-02] MEDS: MINERAL OIL/WHITE PETROLATUM OINTMENT 1 APPLIC EACH EYE ×2 (08:48→20:13)
[2021-07-02] MEDS: amLODIPine BESYLATE 5 MG TABLET 10 MG PO (08:48)
[2021-07-02] MEDS: FAMOTIDINE 20 MG TABLET PO ×2 (08:48→20:13)
[2021-07-02] MEDS: LOSARTAN POTASSIUM 100 MG TABLET PO (08:48)
[2021-07-02] MEDS: HEPARIN SODIUM 5,000 UNITS/ML VIAL 5000 UNITS SUB-Q ×2 (08:48→20:13)
--- NOTE | 2021-07-02 08:52 | WPDINTPN ---
Progress Note: A&P Assessment and Plan (1) Acute respiratory failure: Code(s): J96.00 - Acute respiratory failure, unspecified whether with hypoxia or hypercapnia Status: Acute Assessment and Plan: acute respiratory failure with metabolic acidosis - intubated on 06/18/21. ET tube was dislodged and patient was reintubated 06/25 -extubated 07/01 and maintaining saturation on nasal cannula -p.r.n. NT suction - will complete a course of cefepime - CT 07/01 Airspace opacities of the lower lobes, consistent with atelectasis versus pneumonia. Hyperdense material in the left lower chest wall of unclear origin. Correlate for any contrast requiring procedures involving the chest wall. (2) Fever: Code(s): R50.9 - Fever, unspecified Status: Acute Assessment and Plan: Afebrile now his most recent cultures have been negative till now patient completed a course of cefepime lipase elevated confirming pancreatitis. CT abdomen pelvis confirmed pancreatitis duplex venous lower extremity was negative and showed superficial thrombophlebitis of cephalic vein on the right side nephrology does not think patient has any evidence of peritonitis will repeat blood cultures if fever spikes femoral central venous catheter has been removed (3) Acute pancreatitis: Code(s): K85.90 - Acute pancreatitis without necrosis or infection, unspecified Status: Acute Assessment and Plan: lipase was sent due to low-grade fever and came back 2453. It continues to be high continue to hold tube feeds today. May start trickle feeds CT abdomen pelvis - Diffuse enlargement of the pancreas. Although examination is limited by the absence of intravenous contrast, findings are consistent with pancreatitis. triglycerides were 252 and no gallstones on ultrasound or CT (4) Cardiac arrest: Code(s): I46.9 - Cardiac arrest, cause unspecified Status: Acute Assessment and Plan: patient had a cardiac arrest at home of unclear etiology, according the records initially was in asystole followed by V-tach, defibrillation, VFib, shock and ACLS protocol. ROSC was obtained, According to medical records EMS arrived at 3:22 a.m. and ROSC was achieved at 3:41 a.m.. - possible causes could be drug induced, seizures. - drug screen was positive for opiates and cannabinoids - appreciate cardiology evaluation and recommendation - echocardiogram showed EF of 65-70%. Severe concentric increased left ventricular wall thickness. Grade 1 diastolic dysfunction. Mild pulmonary hypertension with RVSP of 38 mmHg. (5) Encephalopathy: Code(s): G93.40 - Encephalopathy, unspecified Status: Acute Assessment and Plan: patient presented after a cardiac arrest. He had abnormal CT head on presentation CT scan of the brain: Numerous small regions of significantly decreased attenuation in the bilateral basal ganglia, shereen and bilateral occipital white matter. The differential diagnosis includes posterior reversible encephalopathy syndrome (PRES), subacute to chronic lacunar infarcts/premature chronic small vessel ischemic disease (especially if the patient has cardiovascular risk factors), demyelinating disease such as multiple sclerosis or acute disseminated encephalomyelitis (ADEM), drug abuse, vasculitis, or reactive astrocytosis (gliosis) secondary to other nonspecific etiology EEG was done on 06/21/2021: Abnormal record due to the presence of bihemispheric theta and delta activity without any paroxysmal discharge. These abnormalities are suggestive of underlying organic or metabolic encephalopathy or postictal state. clinical correlation recommended He likely has anoxic brain injury although PRES or hypertensive encephalopathy could also be a contributor or a possibility. Unable to obtain MRI on a vented patient at this hospital but will likely not exchange teller. He is also uremic and is getting ritika
--- NOTE | 2021-07-02 10:37 | PM.PNNEP ---
Progress Note: A&P Assessment and Plan (1) ESRD (end stage renal disease) on dialysis: Code(s): N18.6 - End stage renal disease; Z99.2 - Dependence on renal dialysis Status: Acute Assessment and Plan: the patient has end-stage renal disease. BUN 80 today. Will hold off dialysis till tomorrow Potassium is a little high. Will give Kayexalate. (2) Cardiac arrest: Code(s): I46.9 - Cardiac arrest, cause unspecified Status: Acute Assessment and Plan: The patient is intubated. unfortunately, mental status still very poor possible hypoxic encephalopathy (3) Hypertension: Code(s): I10 - Essential (primary) hypertension Status: Acute Assessment and Plan: His blood pressure is ranging from the 120s to 170s. At home, he used to be on minoxidil, clonidine, carvedilol, amlodipine, losartan, and spironolactone. currently he is on amlodipine, carvedilol and losartan and p.r.n. hydralazine. (4) Renal osteodystrophy: Code(s): N25.0 - Renal osteodystrophy Status: Acute Assessment and Plan: Phosphorus level is elevated. getting calcium acetate and sevelamer. Phosphorus level is coming down slowly (5) Erythropoietin deficiency anemia: Code(s): D63.1 - Anemia in chronic kidney disease Status: Acute Assessment and Plan: Hemoglobin above 11. no need for Epogen right now (6) Gastroenteritis: Code(s): K52.9 - Noninfective gastroenteritis and colitis, unspecified Status: Acute Assessment and Plan: Treat symptomatically Subjective Date/time seen: 07/02/21 10:37 Interval history: The patient was extubated. Still not interactive. Exam Narrative: WDWN in NAD on the ventilator and sedated. skin no rash or subcu nodules head ncat lungs Mildly coarse upper airway sounds. cor reg no rub or gallop abd BS+ nontender and soft ext no edema Objective Data Vital Signs Vital Signs: Vital Signs - 24 hr 07/01/21 11:00 07/01/21 11:10 07/01/21 11:45 Temperature Pulse Rate 83 86 83 Respiratory Rate Blood Pressure 163/117 H 142/81 H Pulse Oximetry 98 07/01/21 12:00 07/01/21 12:15 07/01/21 14:00 Temperature 36.5 C 36.7 C 36.7 C Pulse Rate 83 78 78 Respiratory Rate 20 18 21 H Blood Pressure 139/96 H 141/99 H 163/117 H Pulse Oximetry 98 100 07/01/21 14:45 07/01/21 16:00 07/01/21 16:37 Temperature 36.8 C Pulse Rate 84 74 Respiratory Rate 24 H Blood Pressure 173/111 H Pulse Oximetry 97 91 07/01/21 18:00 07/01/21 20:00 07/01/21 22:00 Temperature 36.9 C 36.6 C 36.4 C Pulse Rate 78 76 75 Respiratory Rate 18 18 21 H Blood Pressure 178/114 H 171/121 H 167/108 H Pulse Oximetry 96 97 92 07/01/21 22:15 07/02/21 00:00 07/02/21 02:00 Temperature 36.5 C 36.3 C L Pulse Rate 76 82 76 Respiratory Rate 23 H 19 Blood Pressure 161/115 H 179/106 H Pulse Oximetry 92 93 07/02/21 03:04 07/02/21 03:15 07/02/21 03:30 Temperature 36.3 C L 36.3 C L Pulse Rate 70 77 75 Respiratory Rate 23 H 21 H Blood Pressure 172/133 H 163/116 H Pulse Oximetry 96 94 07/02/21 03:45 07/02/21 04:00 07/02/21 06:00 Temperature 36.3 C L 36.4 C L Pulse Rate 72 74 71 Respiratory Rate 22 H 22 H 21 H Blood Pressure 140/106 H 140/81 Pulse Oximetry 96 96 95 07/02/21 08:00 07/02/21 08:47 07/02/21 10:00 Temperature 36.5 C 36.7 C Pulse Rate 77 81 77 Respiratory Rate 22 H 23 H Blood Pressure 157/99 H 133/95 H Pulse Oximetry 93 93 Intake/Output Intake/Output: Intake & Output 06/29/21 06/30/21 07/01/21 07/02/21 23:59 23:59 23:59 23:59 Intake Total 360 230 450 480 Output Total 082 931 4270 10 Gqpsytc -510 -272 -0658 470 Meds/Results Medications: Active Medications Generic Name Dose Route Start Last Admin Trade Name Freq PRN Reason Stop Dose Admin Acetaminophen 650 mg 06/20/21 12:07 06/29/21 17:40 Acetamin
--- NOTE | 2021-07-02 10:49 | PCDIET ---
ICU Rounding Note: Patient remains NPO post-extubation. NG tube in place. If unable to resume tube feedings in next 48 hours, would recommend parenteral nutrition. Last recorded weight is 71.3kg which is down from last review. -I/O. Bowel Motility: No BM since FMS removed. Banatrol has been discontinued. Labs Reviewed: WBC (18.8), RBC (4.25), Hgb (11.5), Hct (35.5), BUN (82), Cr (7.3), K (5.6), Na (136), Mg (2.6), Lipase (6449) Meds Noted: Apresoline, Cozaar, Pepcid, Heparin, Norvasc, Phoslo, Coreg, Retacrit, Renvela, Valproic Acid, Kayexalate Additional Notes: Medial chest scab. Following daily in ICU rounds. Assessing/reassessing every 3 days.
[2021-07-02 12:39] LABS: Glucose Point of Care 87 mg/dl (65-105)
--- NOTE | 2021-07-02 13:14 | PCSTNOTE ---
A Bedside Swallow Evaluation was attempted this date. Patient was awake and making eye contact with therapist. Therapist offered verbal explanation about Bedside Swallow and showed patient the cup, spoon, and ice chips. Patient turned away from therapist. When presented with spoon with two small ice chips from the other side of the bed, with therapist hand held behind head to encourage upright/flexed head positioning, patient held lips and teeth together tightly in order to refuse the ice chips. Therapist offered a small bite of applesauce and attempted to hold hand behind the patient's head, he stiffened neck in order to refuse to be placed in flexed position and turned away. Additionally, he opened mouth and stuck out tongue to wiggle it, as if trying to yell however no sound emerged. Offered two pieces of ice chips on one last attempt and patient again turned away with mouth closed. Attempted Bedside Swallow Evaluation was terminated and nurse/physician notified. Therapist spoke with Dr. Garcia who requested ST to attempt again tomorrow. Therapist will conference with nursing tomorrow morning and if patient is more agreeable to oral presentations, a new Bedside Swallow Evaluation order will be requested.
--- NOTE | 2021-07-02 15:26 | PM.IMPN ---
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 CT brain on admission showed numerous small regions significantly decreased attenuation in the bilateral basal ganglia, shereen bilateral occipital white. Repeat CT brain showed new left centrum semiovale hypodensity probably infarct. Patient has brain MRI today with results pending. Concern that this may be chronic state. If so, will need to consider G-tube placement. Follow up on MRI results. Brain MRI showing acute infarcts involving the left frontal and parietal deep white matter as well as old lacunar infarcts involving the shereen and bilateral basal ganglia. Mild nonspecific cerebral white matter disease noted as well. Suspect new infarcts related to cardiac arrest. (2) Cardiac arrest with ventricular fibrillation: Code(s): I46.9 - Cardiac arrest, cause unspecified; I49.01 - Ventricular fibrillation Status: Acute Assessment and Plan: EMS called at 0314 and they arrived at 0322 and ROSC achieved at 0341. Etiology of the cardiac arrest is unclear but patient was in VFib arrest requiring 6 shocks and Epinephrine. No significant electrolyte abnormalities to explain this event. He does have metabolic acidosis but lactic 9.0 to suggest this might be related to the cardiac arrest and not the etiology of his arrest. Etiology of the malignant arrhythmias unknown. UDS positive opiates, cannabinoids. Echo with EF 65-70% with Grade I DD. He does have episodes of VTach still despite Coreg being advanced to 37.5mg BID per Cardiology recommendations. Continue telemetry monitoring. Continue aspirin. Appreciate cardiology evaluation. Appreciate clinical advisor input. (3) Seizure: Code(s): R56.9 - Unspecified convulsions Status: Acute Assessment and Plan: EMS called at 0314 and they arrived at 0322 and ROSC achieved at 0341. Patient developed seizures and VPA started. CT brain 06/18 showing numerous small regions of significantly decreased attenuation in the bilateral basal ganglia, shereen and bilateral occipital white matter. The differential diagnosis includes posterior reversible encephalopathy syndrome (PRES), subacute to chronic lacunar infarcts/premature chronic small vessel ischemic disease (especially if the patient has cardiovascular risk factors), demyelinating disease such as multiple sclerosis or acute disseminated encephalomyelitis (ADEM), drug abuse, vasculitis, or reactive astrocytosis (gliosis) secondary to other nonspecific etiology. CT brain 06/25 showing new left centrum semiovale hypodensity, confirming acute or acute on chronic process, such as infarctions, ADEM, vasculopathy. Other bilateral white matter, deep rice matter, shereen hypodensity stable or slight decrease in density. EEG was done on 06/21 showing Abnormal record due to the presence of bihemispheric theta and delta activity without any paroxysmal discharge. These abnormalities are suggestive of underlying organic or metabolic encephalopathy or postictal state. clinical correlation recommended. No further seizures. He is awake but odd behavior and intermittently follows commands. Appreciate Neurology evaluation. Continue IV valproate. Ativan available as needed. Continue seizure precautions. As above (4) Acute pancreatitis: Code(s): K85.90 - Acute pancreatitis without necrosis or infection, unspecified Status: Acute Assessment and Plan: Lipase 2453. This was checked due to fevers. Etiology unclear. RUQ showing no GS and normal-appearing pancreas aside from mildly dilated main pancreatic duct with no peripancreatic fluid collections. LFTs normal. TG 252. TF stopped. CT Abd 07/01 showing diffuse enlargement of the pancreas consistent with pancreatitis. Lipase climbing daily to 6449 today and
[2021-07-02 15:28] LABS: Hepatitis B Surface Anti Res Positive
[2021-07-02 18:13] LABS: Glucose Point of Care 78 mg/dl (65-105)
[2021-07-02 23:36] LABS: Glucose Point of Care 75 mg/dl (65-105)
[2021-07-02] MEDS: hydrALAZINE HCL 20 MG/ML VIAL IV PUSH (23:53)
[2021-07-03] VITALS (23 sets, daily range): BP systolic 86–178; BP diastolic 67–116; PULSE 78–119; RESP 20–37; TEMP 36.3–37; O2SAT 90–99
[2021-07-03] MEDS: hydrALAZINE HCL 20 MG/ML VIAL IV PUSH (04:22)
[2021-07-03 04:49] LABS: Hematocrit 39.3 % (42.0-52.0); Hemoglobin 12.5 g/dL (14.0-18.0); Mean Corpuscular HGB Conc 31.8 g/dl (32-36); Mean Corpuscular Hemoglobin 27.1 pg (26-34); Mean Corpuscular Volume 85.1 fl (80-100); Mean Platelet Volume 10.5 fl (7.4-10.4); Platelet Count Result 206 k/mm3 (150-375); Red Blood Count 4.62 M/mm3 (4.6-6.20); Red Cell Distribution Width 14.4 % (11.5-14.5); White Blood Count 21.8 K/mm3 (4.5-10.0)
[2021-07-03 05:09] LABS: Alanine Aminotransferase 21 U/L (4-50); Albumin Level 3.3 g/dL (3.5-5.1); Alkaline Phosphatase 77 U/L (38-126); Anion Gap 27 mmol/L (8-16); Aspartate Amino Transferase 30 U/L (17-59); Bilirubin,Total 0.7 mg/dL (0.2-1.3); Blood Urea Nitrogen 112 mg/dL (9-20); Calcium 9.3 mg/dL (8.4-10.2); Carbon Dioxide 18 mmol/L (22-30); Chloride 92 mmol/L (98-107); Estimated CRCL calculation 9 ml/min; Estimated Glomerular Filt Rate 7; Glucose 79 mg/dL (65-110); Magnesium 2.9 mg/dL (1.6-2.3); Sodium 137 mmol/L (137-145)
[2021-07-03] MEDS: VALPROIC ACID LIQ 250 MG/5 ML ORAL SOLUTION UDC 1000 MG PO ×3 (05:56→21:45)
[2021-07-03 05:57] LABS: Lipase 6061 U/L (23-300)
[2021-07-03 05:57] LABS: Glucose Point of Care 82 mg/dl (65-105)
[2021-07-03] MEDS: DEXTROSE 50% 25 GM/50 ML SYRINGE IV PUSH (06:59)
[2021-07-03] MEDS: INSULIN HUMAN REGULAR (*BKC) 100 UNITS/ML 10 UNITS IV PUSH (07:00)
[2021-07-03] MEDS: SODIUM BICARBONATE 8.4% 50 MEQ/50 ML SYRINGE IV PUSH (07:48)
[2021-07-03] MEDS: ASPIRIN 81 MG CHEWABLE TABLET PO (08:28)
[2021-07-03] MEDS: carvediloL 12.5 MG TABLET 37.5 MG PO ×2 (08:28→21:46)
[2021-07-03] MEDS: HEPARIN SODIUM 5,000 UNITS/ML VIAL 5000 UNITS SUB-Q ×2 (08:29→21:45)
[2021-07-03] MEDS: MINERAL OIL/WHITE PETROLATUM OINTMENT 1 APPLIC EACH EYE ×2 (08:29→21:45)
[2021-07-03] MEDS: FAMOTIDINE 20 MG TABLET PO ×2 (08:29→21:45)
[2021-07-03] MEDS: LOSARTAN POTASSIUM 100 MG TABLET PO (08:29)
[2021-07-03] MEDS: amLODIPine BESYLATE 5 MG TABLET 10 MG PO (08:29)
--- NOTE | 2021-07-03 09:33 | PCSTNOTE ---
Therapist spoke with JAZZ Santoyo, concerning patient's status today and Natanael reported that patient continues to not be able to follow directions or visually track his movements in the room. He does not recommend a direct Bedside Swallow Evaluation at this time. Therapist will check in again tomorrow. Therapist requested Natanael to contact Speech if he feels patient is more able to participate.
--- NOTE | 2021-07-03 09:38 | WPDINTPN ---
Progress Note: A&P Assessment and Plan (1) Acute respiratory failure: Code(s): J96.00 - Acute respiratory failure, unspecified whether with hypoxia or hypercapnia Status: Acute Assessment and Plan: acute respiratory failure with metabolic acidosis - intubated on 06/18/21. ET tube was dislodged and patient was reintubated 06/25 -extubated 07/01 and maintaining saturation on nasal cannula -p.r.n. NT suction - completed a course of cefepime - CT 07/01 Airspace opacities of the lower lobes, consistent with atelectasis versus pneumonia. Hyperdense material in the left lower chest wall of unclear origin. Correlate for any contrast requiring procedures involving the chest wall. (2) Fever: Code(s): R50.9 - Fever, unspecified Status: Acute Assessment and Plan: Afebrile now his most recent cultures have been negative till now patient completed a course of cefepime lipase elevated confirming pancreatitis. CT abdomen pelvis confirmed pancreatitis duplex venous lower extremity was negative and showed superficial thrombophlebitis of cephalic vein on the right side nephrology does not think patient has any evidence of peritonitis will repeat blood cultures if fever spikes femoral central venous catheter has been removed (3) Acute pancreatitis: Code(s): K85.90 - Acute pancreatitis without necrosis or infection, unspecified Status: Acute Assessment and Plan: lipase was sent due to low-grade fever and came back 2453. continue to hold tube feeds today. CT abdomen pelvis - Diffuse enlargement of the pancreas. Although examination is limited by the absence of intravenous contrast, findings are consistent with pancreatitis. triglycerides were 252 and no gallstones on ultrasound or CT - Lipase remains elevated -Increase Ng residuals -Will require TPN (4) Cardiac arrest: Code(s): I46.9 - Cardiac arrest, cause unspecified Status: Acute Assessment and Plan: patient had a cardiac arrest at home of unclear etiology, according the records initially was in asystole followed by V-tach, defibrillation, VFib, shock and ACLS protocol. ROSC was obtained, According to medical records EMS arrived at 3:22 a.m. and ROSC was achieved at 3:41 a.m.. - possible causes could be drug induced, seizures. - drug screen was positive for opiates and cannabinoids - appreciate cardiology evaluation and recommendation - echocardiogram showed EF of 65-70%. Severe concentric increased left ventricular wall thickness. Grade 1 diastolic dysfunction. Mild pulmonary hypertension with RVSP of 38 mmHg. (5) Encephalopathy: Code(s): G93.40 - Encephalopathy, unspecified Status: Acute Assessment and Plan: patient presented after a cardiac arrest. He had abnormal CT head on presentation CT scan of the brain: Numerous small regions of significantly decreased attenuation in the bilateral basal ganglia, shereen and bilateral occipital white matter. The differential diagnosis includes posterior reversible encephalopathy syndrome (PRES), subacute to chronic lacunar infarcts/premature chronic small vessel ischemic disease (especially if the patient has cardiovascular risk factors), demyelinating disease such as multiple sclerosis or acute disseminated encephalomyelitis (ADEM), drug abuse, vasculitis, or reactive astrocytosis (gliosis) secondary to other nonspecific etiology EEG was done on 06/21/2021: Abnormal record due to the presence of bihemispheric theta and delta activity without any paroxysmal discharge. These abnormalities are suggestive of underlying organic or metabolic encephalopathy or postictal state. clinical correlation recommended He likely has anoxic brain injury although PRES or hypertensive encephalopathy could also be a contributor or a possibility. Unable to obtain MRI on a vented patient at this hospital but will likely not mold changer. He is also uremic
--- NOTE | 2021-07-03 09:46 | PM.PNNEP ---
Progress Note: A&P Assessment and Plan (1) ESRD (end stage renal disease) on dialysis: Code(s): N18.6 - End stage renal disease; Z99.2 - Dependence on renal dialysis Status: Acute Assessment and Plan: the patient has end-stage renal disease. dialysis is due today. Potassium is high. Received some insulin and glucose. Will do on a low-potassium bath today (2) Cardiac arrest: Code(s): I46.9 - Cardiac arrest, cause unspecified Status: Acute Assessment and Plan: The patient is intubated. unfortunately, mental status still very poor possible hypoxic encephalopathy (3) Hypertension: Code(s): I10 - Essential (primary) hypertension Status: Acute Assessment and Plan: His blood pressure is ranging from the 120s to 170s. At home, he used to be on minoxidil, clonidine, carvedilol, amlodipine, losartan, and spironolactone. currently he is on amlodipine, carvedilol and losartan and p.r.n. hydralazine. add minoxidil low dose (4) Renal osteodystrophy: Code(s): N25.0 - Renal osteodystrophy Status: Acute Assessment and Plan: Phosphorus level is elevated. getting calcium acetate and sevelamer every 8 hours and Nepro tube feedings. Phosphorus level is coming down slowly. Check another 1 tomorrow (5) Erythropoietin deficiency anemia: Code(s): D63.1 - Anemia in chronic kidney disease Status: Acute Assessment and Plan: Hemoglobin above 11. no need for Epogen right now (6) Gastroenteritis: Code(s): K52.9 - Noninfective gastroenteritis and colitis, unspecified Status: Acute Assessment and Plan: Treat symptomatically Subjective Date/time seen: 07/03/21 09:46 Interval history: The patient was extubated. Still not interactive. He snores at times. Exam Narrative: WDWN in NAD on the ventilator and sedated. skin no rash or subcu nodules head ncat lungs Mildly coarse upper airway sounds. cor reg no rub or gallop abd BS+ nontender and soft ext no edema or cyanosis Objective Data Vital Signs Vital Signs: Vital Signs - 24 hr 07/02/21 10:00 07/02/21 12:25 07/02/21 14:00 Temperature 36.7 C 36.9 C Pulse Rate 77 78 87 Respiratory Rate 23 H 27 H 25 H Blood Pressure 133/95 H 145/106 H 162/113 H Pulse Oximetry 93 92 92 07/02/21 16:00 07/02/21 18:00 07/02/21 18:05 Temperature 36.5 C Pulse Rate 80 79 88 Respiratory Rate 19 20 Blood Pressure 142/107 H 156/100 H Pulse Oximetry 95 95 07/02/21 20:00 07/02/21 22:00 07/02/21 23:53 Temperature 36.8 C Pulse Rate 78 84 84 Respiratory Rate 17 21 H 18 Blood Pressure 144/104 H 149/106 H 161/101 H Pulse Oximetry 95 94 95 07/03/21 00:00 07/03/21 02:00 07/03/21 04:00 Temperature 36.8 C 36.3 C L Pulse Rate 85 83 84 Respiratory Rate 22 H 21 H 20 Blood Pressure 160/108 H 144/89 H 169/116 H Pulse Oximetry 96 92 95 07/03/21 06:00 07/03/21 08:00 07/03/21 08:05 Temperature 36.7 C Pulse Rate 83 99 Respiratory Rate 22 H 24 H Blood Pressure 163/115 H 178/114 H Pulse Oximetry 93 94 94 Intake/Output Intake/Output: Intake & Output 06/30/21 07/01/21 07/02/21 07/03/21 23:59 23:59 23:59 23:59 Intake Total 230 450 580 Output Total 455 2200 25 850 Balance -225 -1210 555 -850 Meds/Results Medications: Active Medications Generic Name Dose Route Start Last Admin Trade Name Yovana PRN Reason Stop Dose Admin Acetaminophen 650 mg 06/20/21 12:07 06/29/21 17:40 Acetaminophen Elixir 325 Mg/10.15 Ml Udc FEED TUBE 650 mg Q6H PRN Administration Mild Pain (1-3) or Fever Amlodipine Besylate 10 mg 06/18/21 09:10 07/03/21 08:29 Amlodipine Besylate 5 Mg Tablet PO 10 mg QAM NATI Administration Aspirin 81 mg 06/18/21 10:45 07/03/21 08:28 Aspirin 81 Mg Chewable Tablet PO 81 mg DAILY@0800 [facility] Administration Calcium Acetate 2,001 mg 06/23/21 12:00
--- NOTE | 2021-07-03 10:47 | PCDIET ---
Nutrition Follow-Up Complete: Nutrition Diagnosis: Inadequate oral food intake related to mechanical ventilation secondary to cardiac arrest as evidenced by NPO diet order. Nutrition Goal: Meet estimated nutritional needs. Goal not met. Patient NPO with NG tube to suction. Significant output reported. MD ordering central line for TPN. Recommend Clinimix 5/15 (no electrolytes) at 40mL/hr on day one with 250mL 20% lipids for 1182kcal and 48g protein. Could consider supplemental/trickle [place] feedings once medically appropriate. Last recorded weight is 70.7 kg which is down from last review. Bowel Motility: Last documented stool output on 06/27/21. Labs Reviewed: TG (258), WBC (21.8), Hgb (12.5), Hct (39.3), BUN (112), Cr (10.10), K (6.0), Alb (3.3), Mg (2.9) Meds Noted: Norvasc, Labetalol, Phoslo, Cozaar, Coreg, Retacrit, Renvela, Valproic Acid, Pepcid, Heparin, Apresoline Additional Notes: Phosphorus binders held. Plan for dialysis today. Will continue to monitor with same goal. Nutrition Monitoring and Evaluation: Follow up every Thursday/Thursday.
--- NOTE | 2021-07-03 11:14 | PCOTNOTE ---
OT evaluation attempted this date. Patient unable to follow simple commands or track therapist. Patient is non-verbal and non-participatory at this time. Will attempt evaluation at later time as medically appropriate.
[2021-07-03 11:40] LABS: Glucose Point of Care 80 mg/dl (65-105)
[2021-07-03] MEDS: LIDOCAINE HCL 1% PF INJ 5 ML VIAL INFILTRATE (14:40)
--- NOTE | 2021-07-03 16:02 | PM.IMPN ---
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 CT brain on admission showed numerous small regions significantly decreased attenuation in the bilateral basal ganglia, shereen bilateral occipital white. Repeat CT brain showed new left centrum semiovale hypodensity probably infarct. Brain MRI showing acute infarcts involving the left frontal and parietal deep white matter as well as old lacunar infarcts involving the shereen and bilateral basal ganglia. Mild nonspecific cerebral white matter disease noted as well. Suspect new infarcts related to cardiac arrest. Concern that this may be chronic state. If so, will need to consider G-tube placement. Appreciate Neurology input. (2) Cardiac arrest with ventricular fibrillation: Code(s): I46.9 - Cardiac arrest, cause unspecified; I49.01 - Ventricular fibrillation Status: Acute Assessment and Plan: EMS called at 0314 and they arrived at 0322 and ROSC achieved at 0341. Etiology of the cardiac arrest is unclear but patient was in VFib arrest requiring 6 shocks and Epinephrine. No significant electrolyte abnormalities to explain this event. He does have metabolic acidosis but lactic 9.0 to suggest this might be related to the cardiac arrest and not the etiology of his arrest. Etiology of the malignant arrhythmias unknown. UDS positive opiates, cannabinoids. Echo with EF 65-70% with Grade I DD. He does have episodes of VTach still despite Coreg being advanced to 37.5mg BID per Cardiology recommendations. Continue telemetry monitoring. Continue aspirin. Appreciate cardiology evaluation. Appreciate manager administration input. (3) Seizure: Code(s): R56.9 - Unspecified convulsions Status: Acute Assessment and Plan: EMS called at 0314 and they arrived at 0322 and ROSC achieved at 0341. Patient developed seizures and VPA started. CT brain 06/18 showing numerous small regions of significantly decreased attenuation in the bilateral basal ganglia, shereen and bilateral occipital white matter. The differential diagnosis includes posterior reversible encephalopathy syndrome (PRES), subacute to chronic lacunar infarcts/premature chronic small vessel ischemic disease (especially if the patient has cardiovascular risk factors), demyelinating disease such as multiple sclerosis or acute disseminated encephalomyelitis (ADEM), drug abuse, vasculitis, or reactive astrocytosis (gliosis) secondary to other nonspecific etiology. CT brain 06/25 showing new left centrum semiovale hypodensity, confirming acute or acute on chronic process, such as infarctions, ADEM, vasculopathy. Other bilateral white matter, deep rice matter, shereen hypodensity stable or slight decrease in density. EEG was done on 06/21 showing Abnormal record due to the presence of bihemispheric theta and delta activity without any paroxysmal discharge. These abnormalities are suggestive of underlying organic or metabolic encephalopathy or postictal state. clinical correlation recommended. MRI Brain 07/02 showing acute infarcts involving the left frontal and parietal deep white matter. Old lacunar infarcts involving the shereen and bilateral basal ganglia No further seizures. He is awake but odd behavior and intermittently follows commands. Appreciate Neurology evaluation. Continue IV valproate. Ativan available as needed. Continue seizure precautions. As above (4) Acute pancreatitis: Code(s): K85.90 - Acute pancreatitis without necrosis or infection, unspecified Status: Acute Assessment and Plan: Lipase 2453. This was checked due to fevers. Etiology unclear. RUQ showing no GS and normal-appearing pancreas aside from mildly dilated main pancreatic duct with no peripancreatic fluid collections. LFTs normal. TG 252. TF stopped. CT Abd 07/01
[2021-07-03 17:51] LABS: Glucose Point of Care 113 mg/dl (65-105)
[2021-07-03] MEDS: EPOETIN ALFA-EPBX 10,000 UNITS/ML VIAL 10000 UNITS SUB-Q (18:01)
[2021-07-03] MEDS: AMINO ACIDS 5%/DEXTROSE 15% 2,000 ML with MULTIVITAMINS-12 INJ VIAL 1 2.5 ML, MULTIVITA... 20 ML IV CONT (18:02)
[2021-07-03] MEDS: FAT EMULSIONS IV 20% 250 ML 20.83 ML IVPB (18:02)
[2021-07-03] MEDS: minoxidiL 2.5 MG TABLET PO (21:47)
[2021-07-03] MEDS: CENTRAL LINE FLUSH 10 ML IV PUSH (21:48)
--- NOTE | 2021-07-03 22:12 | PHAR ---
Some evening medications administered late due to dialysis in progress.
[2021-07-03] MEDS: INSULIN ASPART (*BKC) 100 UNITS/ML SUB-Q (23:40)
[2021-07-03 23:41] LABS: Glucose Point of Care 222 mg/dl (65-105)
[2021-07-03 23:47] LABS: Alveolar/Arterial O2 Gradient 480.7 mmHg; Base Excess ABG 4.9 mEq/l (+/-2.0); Carboxyhemoglobin 0.1 % THb (0-2.0); Fractional Inspired Oxygen 80 %; HCO3 ABG 27.3 mEq/l (22.0-26.0); Methemoglobin ABG 0.1 %THb (0-1.5); Oxygen Content ABG 15.7 %vol (16.0-22.0); Oxyhemoglobin 88.4 % THb (90.0-100.0); PCO2 ABG 33.2 mmHg (35.0-45.0); PO2 ABG 54.8 mmHg (80.0-100.0); PO2 FiO2 Ratio Arterial Blood 0.69 %; Reduced Hemoglobin 11.4 %THb (0-5.0); Total Hemoglobin 12.6 g/dL (12.0-18.0)
[2021-07-03 23:49] LABS: Modified Allen's Test Pass; Site Drawn RIGHT RADIAL; pH ABG 7.533 (7.350-7.450)
[2021-07-03 23:50] LABS: Device NON-REBREATHER MASK
[2021-07-04] VITALS (7 sets, daily range): BP systolic 79–117; BP diastolic 53–86; PULSE 105–120; RESP 29–44; TEMP 35.8–36.7; O2SAT 91–100
[2021-07-04] MEDS: VALPROIC ACID LIQ 250 MG/5 ML ORAL SOLUTION UDC 1000 MG PO ×2 (00:59→05:19)
[2021-07-04] MEDS: CENTRAL LINE FLUSH 10 ML IV PUSH (05:21)
[2021-07-04 05:23] LABS: Hematocrit 35.7 % (42.0-52.0); Hemoglobin 11.4 g/dL (14.0-18.0); Mean Corpuscular HGB Conc 31.9 g/dl (32-36); Mean Corpuscular Hemoglobin 26.9 pg (26-34); Mean Corpuscular Volume 84.2 fl (80-100); Mean Platelet Volume 9.9 fl (7.4-10.4); Platelet Count Result 320 k/mm3 (150-375); Red Blood Count 4.24 M/mm3 (4.6-6.20); Red Cell Distribution Width 14.4 % (11.5-14.5); White Blood Count 33.6 K/mm3 (4.5-10.0)
[2021-07-04 05:29] LABS: Glucose Point of Care 119 mg/dl (65-105)
[2021-07-04 05:34] LABS: Partial Thromboplastin Time 43.8 SECONDS (22.3-36.8)
[2021-07-04 05:43] LABS: Alanine Aminotransferase 21 U/L (4-50); Albumin Level 3.2 g/dL (3.5-5.1); Alkaline Phosphatase 89 U/L (38-126); Anion Gap 19 mmol/L (8-16); Aspartate Amino Transferase 32 U/L (17-59); Bilirubin,Total 0.4 mg/dL (0.2-1.3); Blood Urea Nitrogen 78 mg/dL (9-20); Calcium 9.5 mg/dL (8.4-10.2); Carbon Dioxide 28 mmol/L (22-30); Chloride 92 mmol/L (98-107); Glucose 109 mg/dL (65-110); Magnesium 2.7 mg/dL (1.6-2.3); Potassium 4.7 mmol/L (3.4-5.0); Sodium 139 mmol/L (137-145)
[2021-07-04 05:49] LABS: Transferrin 122 mg/dL (206-381)
[2021-07-04 05:54] LABS: Band Neutrophils Percent 11 % (0-6); Lymphocytes Absolute Manual 2.35 K/mm3 (1.1-4.5); Monocytes Absolute Manual 5.37 K/mm3 (0.1-0.90); Monocytes Percent Manual 16 % (3-9); Neutrophils Absolute Manual 25.87 K/mm3 (1.3-6.7); Neutrophils Percent Manual 66 % (46-73); Total Cells Counted 100
[2021-07-04 05:55] LABS: Platelet Estimate Adequate (Adequate)
[2021-07-04 06:05] LABS: Estimated CRCL calculation 11 ml/min; Estimated Glomerular Filt Rate 9
[2021-07-04 07:54] LABS: Triglycerides 143 mg/dL (<150)
[2021-07-04 08:12] LABS: Lipase 5010 U/L (23-300)
--- NOTE | 2021-07-04 08:31 | PM.IMPN ---
Progress Note: A&P Assessment and Plan (1) Acute respiratory failure: Code(s): J96.00 - Acute respiratory failure, unspecified whether with hypoxia or hypercapnia Status: Acute Assessment and Plan: Acute respiratory failure with metabolic acidosis on admisison with ABG 7.17/35/270 on MV. Related to prolonged down time. He self-extubated requiring reintubated 06/25/21. He did well with SBT and able to extubated on 07/01. He was weaned to room air but now back up on NRB mask on 07/02. CXR showing some atelectasis but otherwise clear. ABG 7.53/33/55 on NRB mask. Aspiration a possibility. Consider also PE or related to the apneic spells or new TALENT ADVISOR event. Check dopplers. Arrange for CTA. Check CT brain. 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 CT brain on admission showed numerous small regions significantly decreased attenuation in the bilateral basal ganglia, shereen bilateral occipital white. Repeat CT brain showed new left centrum semiovale hypodensity probably infarct. Brain MRI showing acute infarcts involving the left frontal and parietal deep white matter as well as old lacunar infarcts involving the shereen and bilateral basal ganglia. Mild nonspecific cerebral white matter disease noted as well. Suspect new infarcts related to cardiac arrest. Concern that this may be chronic neurologic state. Now patient with Roberto Carlos-Wooten breathing pattern. Will need to discuss with family about further care options. Appreciate Neurology input. (3) Cardiac arrest with ventricular fibrillation: Code(s): I46.9 - Cardiac arrest, cause unspecified; I49.01 - Ventricular fibrillation Status: Acute Assessment and Plan: EMS called at 0314 and they arrived at 0322 and ROSC achieved at 0341. Etiology of the cardiac arrest is unclear but patient was in VFib arrest requiring 6 shocks and Epinephrine. No significant electrolyte abnormalities to explain this event. He does have metabolic acidosis but lactic 9.0 to suggest this might be related to the cardiac arrest and not the etiology of his arrest. Etiology of the malignant arrhythmias unknown. UDS positive opiates, cannabinoids. Echo with EF 65-70% with Grade I DD. He does have episodes of VTach still despite Coreg being advanced to 37.5mg BID per Cardiology recommendations. Continue telemetry monitoring. Continue aspirin. Appreciate cardiology evaluation. Appreciate bone glue maker input. (4) Seizure: Code(s): R56.9 - Unspecified convulsions Status: Acute Assessment and Plan: EMS called at 0314 and they arrived at 0322 and ROSC achieved at 0341. Patient developed seizures and VPA started. CT brain 06/18 showing numerous small regions of significantly decreased attenuation in the bilateral basal ganglia, shereen and bilateral occipital white matter. The differential diagnosis includes posterior reversible encephalopathy syndrome (PRES), subacute to chronic lacunar infarcts/premature chronic small vessel ischemic disease (especially if the patient has cardiovascular risk factors), demyelinating disease such as multiple sclerosis or acute disseminated encephalomyelitis (ADEM), drug abuse, vasculitis, or reactive astrocytosis (gliosis) secondary to other nonspecific etiology. CT brain 06/25 showing new left centrum semiovale hypodensity, confirming acute or acute on chronic process, such as infarctions, ADEM, vasculopathy. Other bilateral white matter, deep rice matter, shereen hypodensity stable or slight decrease in density. EEG was done on 06/21 showing Abnormal record due to the presence of bihemispheric theta and delta activity without any paroxysmal discharge. These abnormalities are suggestive of underlying organic or metabolic encephalopathy or postictal state. clinical correlation recommen
[2021-07-04] MEDS: HEPARIN SODIUM 5,000 UNITS/ML VIAL 5000 UNITS SUB-Q (08:56)
[2021-07-04] MEDS: carvediloL 12.5 MG TABLET 37.5 MG PO (08:57)
[2021-07-04] MEDS: FAMOTIDINE 20 MG TABLET PO (08:57)
[2021-07-04] MEDS: MINERAL OIL/WHITE PETROLATUM OINTMENT 1 APPLIC EACH EYE (08:58)
[2021-07-04] MEDS: minoxidiL 2.5 MG TABLET PO (08:58)
[2021-07-04] MEDS: ASPIRIN 81 MG CHEWABLE TABLET PO (08:58)
[2021-07-04] MEDS: amLODIPine BESYLATE 5 MG TABLET 10 MG PO (08:58)
[2021-07-04] MEDS: LOSARTAN POTASSIUM 100 MG TABLET PO (08:58)
--- NOTE | 2021-07-04 09:17 | WPDINTPN ---
Progress Note: A&P Assessment and Plan (1) Acute respiratory failure: Code(s): J96.00 - Acute respiratory failure, unspecified whether with hypoxia or hypercapnia Status: Acute Assessment and Plan: acute respiratory failure with metabolic acidosis - intubated on 06/18/21. ET tube was dislodged and patient was reintubated 06/25 -extubated 07/01 -p.r.n. NT suction - completed a course of cefepime - CT 07/01 Airspace opacities of the lower lobes, consistent with atelectasis versus pneumonia. Hyperdense material in the left lower chest wall of unclear origin. Correlate for any contrast requiring procedures involving the chest wall. 07/04: Apneic episodes with desaturation requiring non-rebreather, chest x-ray this morning : Persistent bandlike discoid atelectasis/scarring at the medial right lower lung zone Patient also tachycardic, question PE ?. Will obtain venous Doppler. Patient has been prophylactic dose of heparin (2) Fever: Code(s): R50.9 - Fever, unspecified Status: Acute Assessment and Plan: Afebrile now his most recent cultures have been negative till now patient completed a course of cefepime lipase elevated confirming pancreatitis. CT abdomen pelvis confirmed pancreatitis 06/28 duplex venous lower extremity was negative 06/28 venous Doppler of upper extremity: Occlusive venous thrombosis at the right cephalic vein. No other evident venous thrombosis in either upper limb nephrology does not think patient has any evidence of peritonitis 07/04 worsening Leukocytosis: obtain blood and urine cx (3) Acute pancreatitis: Code(s): K85.90 - Acute pancreatitis without necrosis or infection, unspecified Status: Acute Assessment and Plan: lipase was sent due to low-grade fever and came back 2453. continue to hold tube feeds today. CT abdomen pelvis - Diffuse enlargement of the pancreas. Although examination is limited by the absence of intravenous contrast, findings are consistent with pancreatitis. triglycerides were 252 and no gallstones on ultrasound or CT - Lipase remains elevated -Increased NG residuals, Reglan was added -Started on TPN on 07/03, will continue (4) Cardiac arrest: Code(s): I46.9 - Cardiac arrest, cause unspecified Status: Acute Assessment and Plan: patient had a cardiac arrest at home of unclear etiology, according the records initially was in asystole followed by V-tach, defibrillation, VFib, shock and ACLS protocol. ROSC was obtained, According to medical records EMS arrived at 3:22 a.m. and ROSC was achieved at 3:41 a.m.. - possible causes could be drug induced, seizures. - drug screen was positive for opiates and cannabinoids - appreciate cardiology evaluation and recommendation - echocardiogram showed EF of 65-70%. Severe concentric increased left ventricular wall thickness. Grade 1 diastolic dysfunction. Mild pulmonary hypertension with RVSP of 38 mmHg. (5) Encephalopathy: Code(s): G93.40 - Encephalopathy, unspecified Status: Acute Assessment and Plan: patient presented after a cardiac arrest. He had abnormal CT head on presentation CT scan of the brain: Numerous small regions of significantly decreased attenuation in the bilateral basal ganglia, shereen and bilateral occipital white matter. The differential diagnosis includes posterior reversible encephalopathy syndrome (PRES), subacute to chronic lacunar infarcts/premature chronic small vessel ischemic disease (especially if the patient has cardiovascular risk factors), demyelinating disease such as multiple sclerosis or acute disseminated encephalomyelitis (ADEM), drug abuse, vasculitis, or reactive astrocytosis (gliosis) secondary to other nonspecific etiology EEG was done on 06/21/2021: Abnormal record due to the presence of bihemispheric theta and delta activity without any paroxysmal discharge. These abnormalities are suggestive of underlying
--- NOTE | 2021-07-04 10:23 | PM.PNNEP ---
Progress Note: A&P Assessment and Plan (1) ESRD (end stage renal disease) on dialysis: Code(s): N18.6 - End stage renal disease; Z99.2 - Dependence on renal dialysis Status: Acute Assessment and Plan: the patient has end-stage renal disease. dialysis is due today. potassium doing well today. (2) Cardiac arrest: Code(s): I46.9 - Cardiac arrest, cause unspecified Status: Acute Assessment and Plan: The patient is intubated. unfortunately, mental status still very poor possible hypoxic encephalopathy (3) Hypertension: Code(s): I10 - Essential (primary) hypertension Status: Acute Assessment and Plan: His blood pressure is A bit soft. holding amlodipine (4) Renal osteodystrophy: Code(s): N25.0 - Renal osteodystrophy Status: Acute Assessment and Plan: Phosphorus level is elevated. getting calcium acetate and sevelamer every 8 hours and Nepro tube feedings. this is for when he is on p.o. Nutritional support phosphorus still high. He is off the propofol. (5) Erythropoietin deficiency anemia: Code(s): D63.1 - Anemia in chronic kidney disease Status: Acute Assessment and Plan: Hemoglobin above 11. no need for Epogen right now (6) Gastroenteritis: Code(s): K52.9 - Noninfective gastroenteritis and colitis, unspecified Status: Acute Assessment and Plan: Treat symptomatically Subjective Date/time seen: 07/04/21 10:23 Interval history: The patient is lying in bed. Moves head from side to side but does not interact respiratory rate rises and falls. ? Roberto Carlos-Wooten Exam Narrative: WDWN in NAD on the ventilator and sedated. skin no rash or subcu nodules head ncat lungs Mildly coarse upper airway sounds. cor reg no rub or gallop abd BS+ nontender and soft ext no edema or cyanosis Objective Data Vital Signs Vital Signs: Vital Signs - 24 hr 07/03/21 12:00 07/03/21 14:00 07/03/21 16:00 Temperature 36.7 C 36.6 C Pulse Rate 79 97 87 Pulse Rate [Apical] Respiratory Rate 28 H 25 H 27 H Blood Pressure 141/82 H 138/94 H 138/93 H Pulse Oximetry 90 98 98 07/03/21 17:00 07/03/21 17:15 07/03/21 17:45 Temperature 36.8 C Pulse Rate 86 78 106 H Pulse Rate [Apical] 86 Respiratory Rate 27 H Blood Pressure 138/93 H 152/110 H 168/100 H Pulse Oximetry 07/03/21 18:00 07/03/21 18:15 07/03/21 19:00 Temperature Pulse Rate 94 92 105 H Pulse Rate [Apical] Respiratory Rate 30 H Blood Pressure 138/90 134/82 105/75 Pulse Oximetry 98 07/03/21 19:45 07/03/21 20:00 07/03/21 20:45 Temperature 36.6 C Pulse Rate 114 H 103 H 119 H Pulse Rate [Apical] Respiratory Rate 37 H Blood Pressure 101/88 111/82 86/69 L Pulse Oximetry 98 07/03/21 20:50 07/03/21 21:46 07/03/21 22:00 Temperature 36.7 C Pulse Rate 98 110 H 109 H Pulse Rate [Apical] Respiratory Rate 32 H 29 H Blood Pressure 110/67 111/70 Pulse Oximetry 99 07/03/21 23:35 07/04/21 00:00 07/04/21 02:00 Temperature 36.5 C Pulse Rate 115 H 120 H Pulse Rate [Apical] Respiratory Rate 35 H 29 H Blood Pressure 111/82 117/86 Pulse Oximetry 90 91 96 07/04/21 04:00 07/04/21 06:00 07/04/21 08:00 Temperature 36.7 C 36.4 C Pulse Rate 107 H 112 H 116 H Pulse Rate [Apical] Respiratory Rate 29 H 35 H 36 H Blood Pressure 110/68 95/81 L 110/78 Pulse Oximetry 100 99 96 07/04/21 08:57 Temperature Pulse Rate 118 H Pulse Rate [Apical] Respiratory Rate Blood Pressure Pulse Oximetry Intake/Output Intake/Output: Intake & Output 07/01/21 07/02/21 07/03/21 07/04/21 23:59 23:59 23:59 23:59 Intake Total 450 580 Output Total 2200 25 2350 700 Balance -1750 555 -2350 -700 Meds/Results Medications: Active Medications Generic Name Dose Route Start Last Admin Trade Name Freq PRN Reason Stop Dose Admin Acetaminophen 650
[2021-07-04 10:27] LABS: Glucose Point of Care 119 mg/dl (65-105)
[2021-07-04] MEDS: hetaSTARCH 6%/NACL 500 ML 250 ML IV CONT (10:30)
--- NOTE | 2021-07-04 10:48 | WPDNEURCNPN ---
Assessment and Plan Additional Plan progressive neurological deficit with documented MRI of the brain as outlined above and the repeat CT scan not revealing any kind of bleed obviously the prognosis extremely poor I will obtain the EEG and further consultation with the family . Consult date: 07/04/21 Time Seen: 10:00 HPI: Nate Munroe is a 40 year old male Has been admitted to the intensive care subsequent to the cardiac arrest at home of unclear etiology, since admission here patient has been treated for the acute respiratory failure, febrile condition, recurrent apneic episodes, and re- evaluation has been requested by the building maintenance engineer because of the ongoing unresponsive condition, patient also has end-stage renal disease and at present on dialysis most recent CT scan of the brain has documented chronic white matter changes including the left parietal deep white matter and bilateral basal ganglia and chronic lacunar infarcts involving the bilateral basal ganglia , MRI of the brain on July 02, 2021 was with acute infarct involving the left frontal and parietal deep white matter in addition to old lacunar infarcts involving the shereen and bilateral basal ganglia and also mild nonspecific cerebral white matter disease representing chronic small vessel ischemic disease Review of Systems Review of Systems: All systems reviewed & are unremarkable except as noted in HPI and below PMFSH Past Medical History Medical History Cardiac arrest Erythropoietin deficiency anemia ESRD (end stage renal disease) on dialysis Gastroenteritis HTN (hypertension) Hypertension Renal osteodystrophy Family History Family History Mother Hypertension Social History Social History Social History: Patient smokes half a pack a day and has smoked for 15 years up to a pack a no alcohol use. Smokes marijuana for appetite stimulant but no other drug use. Lives at home with his significant other, his mother and his maternal grandmother. his significant other is his caregiver. Full code is listed. Smoking packs per day: 1 Smoking cigarettes per day: 20.0 Smoking status: Unknown if ever smoked Tobacco type: cigarettes Alcohol intake: unknown Substance use: current Substance use type: marijuana Last use: smokes marijuana daily Gender identity (if verbalized by the patient): Male Spiritual care concerns: No Meds Home Medications and Allergies Home Medications Medication Instructions Recorded Confirmed Type amlodipine 10 mg PO DAILY 06/17/21 06/18/21 History carvedilol 25 mg PO BID 06/17/21 06/18/21 History clonidine 0.3 mg TRANSDERMAL DIRECTED 06/17/21 06/18/21 History famotidine 20 mg PO DAILY 06/17/21 06/18/21 History gabapentin 100 mg PO HS 06/17/21 06/18/21 History minoxidil 15 mg PO BID 06/17/21 06/18/21 History spironolactone 50 mg PO DAILY 06/17/21 06/18/21 History losartan 100 mg PO DAILY 06/18/21 06/18/21 History Allergies Allergy/AdvReac Type Severity Reaction Status Date / Time No Known Allergies Allergy Verified 06/18/21 08:36 Vital Signs Vital Signs - 24 hr 07/03/21 12:00 07/03/21 14:00 07/03/21 16:00 Temperature 36.7 C 36.6 C Pulse Rate 79 97 87 Pulse Rate [Apical] Respiratory Rate 28 H 25 H 27 H Blood Pressure 141/82 H 138/94 H 138/93 H Pulse Oximetry 90 98 98 07/03/21 17:00 07/03/21 17:15 07/03/21 17:45 Temperature 36.8 C Pulse Rate 86 78 106 H Pulse Rate [Apical] 86 Respiratory Rate 27 H Blood Pressure 138/93 H 152/110 H 168/100 H Pulse Oximetry 07/03/21 18:00 07/03/21 18:15 07/03/21 19:00 Temperature Pulse Rate 94 92 105 H Pulse Rate [Apical] Respiratory Rate 30 H Blood Pressure 138/90 134/82 105/75 Pulse Oximetry 98 07/03/21 19:45 07/03/21 20:00 07/03/21 20:45 Temperature 36.6 C Pulse Rate 114 H 103
--- NOTE | 2021-07-04 11:46 | PDCODEBLUE ---
Code Blue Note Code Blue Note Time Arrived at Code Blue: 10:50 a.m. Initial Rhythm on Arrival: I was called to the room 1037, patient had agonal and Guppy breathing. Intubated the patient, patient was hypotensive, started patient on IV fluid bolus and Levophed. At 10:50 a.m. patient lost his pulse, Airway Management: Pt intubated during resuscitation (Intubated patient just prior to resuscitation) Chest Compressions: Initiated upon arrival (I was in the room when patient lost his pulse and CPR was started per ACLS protocol) Result of Code Blue: Pt Cardiac Rhythm Post Code: Asystole Code Blue Summary: I was called to the room at 10:37 a.m. as patient had agonal and Guppy breathing. Patient was emergently started on bag-mask ventilation and intubation was being prepared for. Patient was successfully intubated using a 7.5 mm ETT without any complications. Patient could bradycardic and lost his pulse CPR was commenced per ACLS protocol. Initial rhythm was bradycardia and PE AA followed by multiple episodes of VFib and V-tach during the process of the cardiac arrest. Patient was defibrillated, was given epinephrine, bicarb, calcium along with statin and I CPR per ACLS protocol. Please review code sheet for more details I discussed with the mother just outside the room and explained to her that this CPR was also significantly prolonged and that the patient may not have meaningful recovery as he already had multiple strokes on the MRI. Also discussed with the mother and the sister outside the room regarding progressive neurological deficit and neurology also thinks the prognosis extremely poor. The mother requested we stop CPR and let the patient and peace. The sister was very emotional. Code was called Time of was 11:33 a.m. Pastoral care was at bedside, I went and discussed with the mother and the sister again and updated them.
--- NOTE | 2021-07-04 12:13 | WPDPROCEDUR ---
Procedures Central Line Placement During the code blue: Central Line Date: 07/04/21 Central Line Time: 10:59 Performed Emergently - Given emergent patient condition, temporal constraints may have precluded informed consent.: Yes Patient Position: supine Patient placed on monitor/pulse ox: Yes Provider Prep: mask, sterile gown, sterile gloves, cap and hand hygiene with conventional soap/water or alcohol based hand rub Central line prep: 2% Chlorhexidine scrub Central line lumen inserted: triple Bel[place]ian: 12 Length (cm): 16 Depth of Insertion (cm): 16 Post Procedure: sutured in place, good blood return, all ports aspirated, flushed, capped and transparent dressing Post procedure x-ray: other (Right Femoral vein central line ) Patient tolerated procedure: well Complications: none Additional comments: This line was inserted during the code has an emergent procedure, sterile technique was maintained to a great extent. Central line was placed in the right femoral vein
--- NOTE | 2021-07-04 12:14 | PC.NURSE ---
At 1000 on 07/04/2021, patients blood pressure began to decrease to unstable levels and became diaphoretic. Blood glucose was checked and was at 119, and blood pressure reassessed with levels continuing to decrease. Service Aide notified and received new orders to initiate 500mL of Hespan at 1019. Patient's condition continued to decline, respirations increased to 44 and then began to have apneic periods. A code blue was initiated at 1050 and patient at 1133.
--- NOTE | 2021-07-04 12:15 | WPDPROCEDUR ---
Procedures Intubation Intubation Date: 07/04/21 Intubation Time: 10:40 A pre-procedural Time-Out was completed immediately before starting the procedure and confirmed: Patient Identification, Site, Procedure, Patient Position and the Availability of Requisite Equipment: Yes Sedative: etomidate Paralytic: rocuronium Laryngoscope: fiber optic video scope Assist device used: fiber optic device ET tube size: 7.5 Tube secured depth (cm): 25 Tube secured location: lips Tube placement confirmation: visualized tube passing through cords, equal breath sounds bilaterally, no breath sounds over epigastrium and confirmation by capnometry Patient tolerated procedure: well Intubation complications: none
--- NOTE | 2021-07-04 17:10 | PM.DDS ---
Discharge Sum: Prov Provider Primary care physician: PHYSICIAN NOT ON STAFF Admitting provider: Davian Foster MD Consults: 06/18/21 06:33 Consult to Physician Routine Comment: Consulting Provider: Morelia Porter Reason for consultation: post cardiac arrest Has provider been notified: Yes 06/18/21 09:55 Consult to Physician Routine Comment: Consulting Provider: Clayton Martini e commerce analyst/MD group to consult: heart care group Reason for consultation: cardiac arrest Has provider been notified: Yes 06/19/21 Consult to Physician Routine Comment: Consulting Provider: George Gandhi Reason for consultation: PD Has provider been notified: Yes 06/25/21 Consult to Physician Routine Comment: Consulting Provider: Nirmal Gutierrez Reason for consultation: please place tunneled dialysis catheter tomorrow Has provider been notified: No Consult to Physician Routine Comment: called dr. rudolph with consult information Consulting Provider: Edwin Rudolph e commerce analyst/MD group to consult: Neurology Reason for consultation: Encephalopathy Has provider been notified: Yes 07/03/21 15:02 Consult to Dietitian Routine Reason for Consult:: TPN Pronouncing clinician: Morelia Porter Discharge Sum: Diag Contributing Factors (1) Acute respiratory failure: (2) Anoxic brain injury: (3) Cardiac arrest with ventricular fibrillation: (4) Seizure: (5) Acute pancreatitis: (6) Sepsis: (7) Lactic acidosis: (8) Elevated LFTs: (9) ESRD (end stage renal disease) on dialysis: (10) Gastroenteritis: (11) Erythropoietin deficiency anemia: (12) Hypertension: (13) Dietary counseling and surveillance: Discharge Sum: Summary Date and Time Date of admission: 06/18/21 06:33 Date of : 07/04/21 Time of : 11:33 Summary Details: On the day of admission, EMS called at 0314 and they arrived at 0322 and ROSC achieved at 0341. Etiology of the cardiac arrest is unclear but patient was in VFib arrest requiring 6 shocks and Epinephrine. UDS positive opiates, cannabinoids. Echo with EF 65-70% with Grade I DD. He did have brief episodes of VTach on Coreg. Cardiology was consulted. Patient had acute respiratory failure with metabolic acidosis on admission with ABG 7.17/35/270 on MV related to prolonged down time. He had improvement and tolerated the spontaneous breathing trials. He was able to extubated on 07/01 and weaned to room air. 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 CT brain on admission showed numerous small regions significantly decreased attenuation in the bilateral basal ganglia, shereen bilateral occipital white. Repeat CT brain showed new left centrum semiovale hypodensity probably infarct. Brain MRI showing acute infarcts involving the left frontal and parietal deep white matter as well as old lacunar infarcts involving the shereen and bilateral basal ganglia. Suspect the new infarcts related to cardiac arrest. Patient developed seizures early in his course and anti-epileptic started. He also developed pancratitis with lipase up to 6450. We changed him from PD to hemodialysis to control electrolytes, uremia and fluid status. He was weaned to room air but then back up on NRB mask on 07/02. CXR showing some atelectasis but otherwise clear. ABG 7.53/33/55 on NRB mask. No benefit with HD. CT brain repeated ut showing no change. Lower extremity dopplers negative for DVT. He developed Roberto Carlos-Wooten breathing pattern. His condition deteriorated to requiring re-intubation and then code Blue called. Please see Code Blue progress note for details. Patient on 07/04/21 at 1133. Family was outside the room at the time. Additional Data Attending/PCP notified?: Yes Attending physician: Davian Foster MD Was code activated?: Yes Hospice patient?: No
[2021-07-06 23:53] LABS: Hepatitis B Core Ab Total Nonreactive (Nonreactive)
== END 2021-07-04 11:33 | disposition expired | DRG 870 ==
LOC: ANHED 05:01 → ANHICU 07:59
PROVIDERS: Internal Medicine; Internal Medicine Nephrology; Surgery; Admitting Provider Internal Medicine; Emergency Provider Emergency Medicine; Visit Provider Internal Medicine
PROC: 0JH63XZ Insertion of Tunneled Vascular Access Device into Chest Subcutaneous Tissue and Fascia, Percutaneous Approach (ICD-10-PCS; CPT 36908; principal; 2021-06-26 14:30)
DX: A41.1 Sepsis due to other specified staphylococcus (principal); J96.00 Acute respiratory failure, unspecified whether with hypoxia or hypercapnia; N18.6 End stage renal disease; K85.90 Acute pancreatitis without necrosis or infection, unspecified; E87.2 Acidosis; G93.1 Anoxic brain damage, not elsewhere classified; I12.0 Hypertensive chronic kidney disease with stage 5 chronic kidney disease or end stage renal disease; I47.2 Ventricular tachycardia; N17.9 Acute kidney failure, unspecified; I49.01 Ventricular fibrillation; I46.2 Cardiac arrest due to underlying cardiac condition; I16.0 Hypertensive urgency; K52.9 Noninfective gastroenteritis and colitis, unspecified; D63.1 Anemia in chronic kidney disease; N25.0 Renal osteodystrophy; Z99.2 Dependence on renal dialysis; F17.210 Nicotine dependence, cigarettes, uncomplicated; R56.9 Unspecified convulsions; R90.89 Other abnormal findings on diagnostic imaging of central nervous system; R79.89 Other specified abnormal findings of blood chemistry; Z79.899 Other long term (current) drug therapy
CPT/HCPCS: 31500; 36415; 36556; 36569; 36600; 70450; 70551; 71045; 71250; 74018; 74176; 76705; 77001; 80053; 80202; 80307; 82375; 82550; 82565; 82805; 82948; 83050; 83605; 83690; 83735; 84100; 84443; 84466; 84478; 84484; 85025; 85027; 85610; 85730; 86704; 86706; 87040; 87045; 87046; 87070; 87075; 87077; 87147; 87181; 87186; 87205; 87324; 87340; 87427; 88108; 89051; 90945; 92950; 93005; 93306; 93970; 94003; 94640; 95816; 96361; 96365; 96366; 96368; 96372; 96374; 96375; 96376; 99284; 99285; A9270; C1750; C1751; C9113; G0257; J0171; J0330; J0360; J0500; J0692; J1644; J1815; J1953; J2060; J2270; J2405; J2704; J3010; J3370; J7030; J7040; J7120; Q5106